=== PATIENT | female | born 1950 | race Caucasian/White ===

== ENCOUNTER 2017-07-27 20:27 | Inpatient (IN) ==
[2017-07-27] MEDS ORDERED: 0.9 % Sodium Chloride 1,000 ML IVC ONE (20:49)
[2017-07-27] MEDS ORDERED: Pantoprazole 40 MG VIAL IVP ONE (20:49)
--- NOTE | 2017-07-27 20:54 | Emergency Department Note ---
Disposition Clinical Impression: Anemia Qualifiers: Anemia type: unspecified type Qualified Code(s): D64.9 - Anemia, unspecified Disposition: Admitted As Inpatient Condition: Fair Time of Disposition: 23:03 General Adult HPI - General Chief complaint: ED Recheck/Abnormal Lab/Rx Stated complaint: Multiple Complaints Time Seen by Provider: 07/27/17 20:44 Source: patient Limitations: no limitations Nursing Notes Reviewed: Yes Vital Signs Reviewed: Yes - History of Present Illness HPI Narrative: Generalized weakness since for gi. Has been worked up by primary care physician. Was told she was anemic previously however did not need any blood transfusions. Was found to be 6.4 hemoglobin today. Now presents emergency department. No complaints of any pain. Does complain of weakness. Pain Scale: 0 - Related Data Home Medications Medication Instructions Recorded Confirmed ALPRAZolam [Xanax 0.5 MG Tablet] 0.5 mg PO BID PRN 07/27/17 07/27/17 Atenolol [Tenormin] 50 mg PO DAILY 07/27/17 07/27/17 Citalopram Hydrobromide [Celexa] 40 mg PO DAILY 07/27/17 07/27/17 Cyanocobalamin (B-12) [Vitamin B12] 1,000 mcg IM Q2W 07/27/17 07/27/17 Diclofenac Sodium [Voltaren] 1 appl TP QID PRN 07/27/17 07/27/17 HYDROcodone/Acet 5/325 mg [[place] 1 tab PO TID PRN 07/27/17 07/27/17 5-325 mg] Lisinopril/Hydrochlorothiazide 1 each PO BID 07/27/17 07/27/17 [Zestoretic 20-12.5 mg Tablet] Nitroglycerin [Nitrostat] 0.4 mg SL Q5M PRN 07/27/17 07/27/17 Ondansetron HCl [Zofran] 4 - 8 mg PO TID PRN 07/27/17 07/27/17 Potassium Chloride [K-Tab ER] 20 meq PO BID 07/27/17 07/27/17 Pravastatin Sodium [Pravachol] 20 mg PO HS 07/27/17 07/27/17 Trazodone HCl 100 mg PO HS 07/27/17 07/27/17 Previous Rx's Medication Instructions Recorded Ascorbate Calcium [Vitamin C] 500 mg PO DAILY #30 tablet 05/12/17 Allergies Allergy/AdvReac Type Severity Reaction Status Date / Time No Known Allergies Allergy Verified 05/09/17 09:28 All systems ED: reviewed and negative except as stated. Constitutional: Denies: fever, chills Cardiovascular: Denies: chest pain, syncope Respiratory: Denies: cough, dyspnea, wheezes Gastrointestinal: Reports: other ([place] stool). Denies: abdominal pain, nausea , vomiting, diarrhea, hematemesis, melena, hematochezia Genitourinary: Denies: urgency, dysuria, frequency, hematuria Musculoskeletal: Denies: back pain, neck pain Integumentary: Denies: rash, abrasion Neurological: Reports: weakness. Denies: headache Past Medical History - Past Medical History Attestation: Yes The following information was validated with the patient. Medical history: Reports: hyperlipidemia, hypertension, myocardial infarction, other Psychiatric history: Reports: no psych history WAGE HAND history: Reports: no WAGE HAND history - Social History Smoking Status: Current every day smoker Smokeless Tobacco Status: No Alcohol use: Reports: rarely Drug use: Reports: none Physical Exam - General Limitations: no limitations General appearance: alert, in distress (Appears weak) - Head Head exam: atraumatic, normocephalic, normal inspection - Eye Eye exam: Present: normal appearance, PERRL, EOMI. Absent: scleral icterus - ENT ENT exam: normal exam, normal oropharynx, mucous membranes moist - Neck Neck exam: Present: normal inspection, full ROM, trachea midline - Chest Chest inspection: Present: normal inspection, symmetric chest wall rise. Absent : tenderness - Respiratory Respiratory exam: Present: normal lung sounds bilaterally. Absent: respiratory distress - Cardiovascular Cardiovascular exam: Present: regular rate, normal rhythm, normal heart sounds - Abdominal Exam Abdominal exam: Present: soft, Non-Tender. Absent: distention, guarding, rebound, rigidity, organomegaly - Extremities Exam Extremities exam: Present: normal inspection, full ROM, normal capillary refill. Absent: tenderness, pedal edema - Back Exam Back exam: Present: normal inspection, full ROM. Absent: tenderness - Neurological Exam Neurological exam: Present: alert, oriented X3 - Psychiatric Psychiatric exam: Present: normal affect, normal mood - Skin Skin exam: Present: warm, dry, pallor Course Course Narrative: Being sent by her primary care physician for a low hemoglobin. She states this she has been feeling weak since before Thanksgi. She denies any pain shortness of breath or urinary symptoms. She states that she has had orange stools. Denies any melena or louise blood per rectum. Has had an VT over 10 years ago. She is pale in color. Has a hard time standing and transitioning to the bed. She is hypotensive. We will order 2 units of trauma blood at this time. Will begin a lab workup on patient inclusive of Hemoccult. She denies any fevers or coughs. She denies any gross pain. She has no signs of edema to her body. She denies any history of bleeding or being on any type of anticoagulants. - Reevaluation(s) Reevaluation #1: Hemoccult performed at bedside was negative however there was no stool in her vault. We will attempt this again if she has a bowel movement. Time: 21:15 Reevaluation #2: CT of patient's abdomen shows some free fluid in her pelvis. Also possible fibroid in her uterus. We will get a transvaginal ultrasound to further evaluate this. Is insistent that she has had no vaginal bleeding. She states that she was told to have fibroid previously after she had her child however this is been reevaluated and she was told that it "disappeared." We will admit patient to ICU. Her blood pressure has responded minimally to the 2 units of blood. Time: 22:35 - Consultations Consultation #1: Dr Magana accepted Pt in stable condition. Time: 23:03 Vital Signs Temperature 98.8 F 07/27/17 20:31 Pulse Rate 93 07/27/17 20:31 Respiratory Rate 18 07/27/17 20:31 Blood Pressure 69/47 07/27/17 20:31 O2 Sat by Pulse Oximetry 100 07/27/17 20:31 Temperature 98.3 F 07/28/17 05:03 Pulse Rate 80 07/28/17 05:00 Respiratory Rate 20 07/28/17 05:00 Blood Pressure 99/54 07/28/17 05:00 O2 Sat by Pulse Oximetry 94 07/28/17 05:00 Oxygen Delivery Oxygen Delivery Room Air Medical Decision Making - Lab Data Result diagrams: 07/28/17 03:08 07/28/17 03:08 Lab Results 07/27/17 07/27/17 07/27/17 Range/Units 20:49 20:49 20:49 WBC 3.1 L (4.3-11.1) K/mcL RBC 2.21 L (3.82-4.97) M/mcL Hgb 5.9 L* (11.5-15.4) g/dL Hct 19.2 L (35.3-44.9) % MCV 86.9 (83.0-100.0) fL MCH 26.7 L (28.0-33.3) pg MCHC 30.7 L (31.6-35.5) g/dL RDW 19.0 H (11.5-14.5) % Plt Count 224 (140-400) K/mcL MPV 11.1 (9.4-12.4) fL Seg Neutrophils % 38.0 % Band Neutrophils % 16.0 H (0-4) % Lymphocytes % 18.0 % Monocytes % 24.0 % Eosinophils % 2.0 % Myelocytes % 2.0 H (0) % Neutrophils # 1.7 (1.6-8.9) K/mcL Lymphocytes # 0.6 (0.6-4.6) K/mcL Monocytes # 0.7 (0.0-1.3) K/mcL Eosinophils # 0.1 (0.0-0.6) K/mcL Platelet Estimate Normal (Normal) Hypochromasia Present A (Not Present) Anisocytosis 1+ A (Not Present) Microcytosis Present A (Not Present) Ovalocytes 1+ A (Not Present) PT 16.8 H (9.4-12.1) Seconds INR 1.5 APTT 34.7 (26.0-36.0) Seconds Sodium 132 L (136-145) mEq/L Potassium 4.0 (3.5-5.1) mEq/L Chloride 102 (98-107) mEq/L Carbon Dioxide 19 L (23-29) mEq/L BUN 64 H (8-23) mg/dL Creatinine 1.38 H (0.60-1.20) mg/dL Est GFR ( Amer) 47 L (> 60) Est GFR (Non-Af Amer) 38 L (> 60) BUN/Creatinine Ratio 46 H (6-26) Glucose 115 H (70-105) mg/dL Calculated Osmolality 293 (280-300) Calcium 8.9 (8.6-10.3) mg/dL Total Bilirubin 0.7 (0.3-1.0) mg/dL AST 9 L (13-39) Units/L ALT 8 (7-52) Units/L Alkaline Phosphatase 167 H (34-104) Units/L Serum Total Protein 6.7 (6.4-8.9) g/dL Albumin 3.0 L (3.5-5.7) g/dL Globulin 3.7 H (2.4-3.5) g/dL Albumin/Globulin Ratio 0.8 L (1.1-2.2) Blood Type Antibody Screen Crossmatch 07/27/17 07/28/17 Range/Units 20:53 00:24 WBC (4.3-11.1) K/mcL RBC (3.82-4.97) M/mcL Hgb 7.8 L D (11.5-15.4) g/dL Hct 25.4 L (35.3-44.9) % MCV (83.0-100.0) fL MCH (28.0-33.3) pg MCHC (31.6-35.5) g/dL RDW (11.5-14.5) % Plt Count (140-400) K/mcL MPV (9.4-12.4) fL Seg Neutrophils % % Band Neutrophils % (0-4) % Lymphocytes % % Monocytes % % Eosinophils % % Myelocytes % (0) % Neutrophils # (1.6-8.9) K/mcL Lymphocytes # (0.6-4.6) K/mcL Monocytes # (0.0-1.3) K/mcL Eosinophils # (0.0-0.6) K/mcL Platelet Estimate (Normal) Hypochromasia (Not Present) Anisocytosis (Not Present) Microcytosis (Not Present) Ovalocytes (Not Present) PT (9.4-12.1) Seconds INR APTT (26.0-36.0) Seconds Sodium (136-145) mEq/L Potassium (3.5-5.1) mEq/L Chloride (98-107) mEq/L Carbon Dioxide (23-29) mEq/L BUN (8-23) mg/dL Creatinine (0.60-1.20) mg/dL Est GFR ( Amer) (> 60) Est GFR (Non-Af Amer) (> 60) BUN/Creatinine Ratio (6-26) Glucose (70-105) mg/dL Calculated Osmolality (280-300) Calcium (8.6-10.3) mg/dL Total Bilirubin (0.3-1.0) mg/dL AST (13-39) Units/L ALT (7-52) Units/L Alkaline Phosphatase (34-104) Units/L Serum Total Protein (6.4-8.9) g/dL Albumin (3.5-5.7) g/dL Globulin (2.4-3.5) g/dL Albumin/Globulin Ratio (1.1-2.2) Blood Type B POSITIVE Antibody Screen NEGATIVE Crossmatch See Detail Attestation Statement - Attestation Attestation: I examined this patient and my medical decision-making was reviewed with the Resident Physician. I agree with the documented findings, disposition and treatment plan as described except to the extent set forth below. Findings consistent with hypotension in the setting of possible GI hemorrhage. There is elevated BUN but rectal sample shows no evidence of positive Hemoccult. The patient will be started on Protonix infusion as well as bolus. She was emergently resuscitated with trauma blood given hypotension, weakness, tachycardia. Blood pressures were 60 systolic on arrival. I do suspect acute GI loss and possible hemorrhage. CT scan shows no acute abdominal findings. Patient was showing clinical improvement with packed red blood cells transfusion. Patient was admitted to intensive care unit. I spent greater than 35 minutes of critical care time assessing his acutely ill patient suffering from acute GI hemorrhage with subsequent hypotension requiring transfusion. This is excluding billable procedures.
[2017-07-27] MEDS: Pantoprazole 40 MG in 0.9 % Sodium Chloride Mini Bag 100 ML IVC SCH (21:01)
[2017-07-27 21:09] LABS: Platelet Count 224 K/mcL (140-400)
[2017-07-27 21:10] LABS: Hematocrit 19.2 % (35.3-44.9); Lymphocytes # 0.6 K/mcL (0.6-4.6); Mean Corpuscular HGB Conc 30.7 g/dL (31.6-35.5); Mean Corpuscular Hemoglobin 26.7 pg (28.0-33.3); Mean Corpuscular Volume 86.9 fL (83.0-100.0); Mean Platelet Volume 11.1 fL (9.4-12.4); Red Blood Count 2.21 M/mcL (3.82-4.97)
[2017-07-27 21:12] LABS: Hemoglobin 5.9 g/dL (11.5-15.4)
[2017-07-27 21:27] LABS: Eosinophils # 0.1 K/mcL (0.0-0.6); Monocytes # 0.7 K/mcL (0.0-1.3); Neutrophils # 1.7 K/mcL (1.6-8.9); Platelet Estimate Normal (Normal)
[2017-07-27 21:28] LABS: Anisocytosis 1+ (Not Present); Hypochromasia Present (Not Present); Microcytosis Present (Not Present); Ovalocytes 1+ (Not Present)
[2017-07-27 21:35] LABS: Albumin/Globulin Ratio 0.8 (1.1-2.2); Bilirubin,Total 0.7 mg/dL (0.3-1.0); Calcium 8.9 mg/dL (8.6-10.3); Globulin 3.7 g/dL (2.4-3.5); Total Protein 6.7 g/dL (6.4-8.9)
[2017-07-27 21:43] LABS: INR 1.5; Prothrombin Time 16.8 Seconds (9.4-12.1)
[2017-07-27 21:46] LABS: Activated Partial Thrombo Time 34.7 Seconds (26.0-36.0)
--- NOTE | 2017-07-28 00:04 | Internal Med History&Physical ---
Date of Encounter: 07/28/17 Time of Encounter: 00:04 Assessment and Plan (1) Anemia Current visit: Yes Status: Acute patient initially anemic 6.4 which prompted her emergency department visit, found to be 5.9 on arrival she was not tachycardia likely attenuated from home medication Atenolol, continue cardiorespiratory monitoring she reports fatigue and weakness, denies any chest pain or shortness of breath denies any active signs of bleeding initial stool hemoccult negative patient has prior history of iron deficiency and vitamin B12 deficiency anemia workup ordered by primary care physician - Vitamin B12 >1500 - Iron 27, saturation 14, transferritin 142 patient does not take any anticoagulants or any NSAIDs suspect possible GI bleed given elevated BUN 58 will consult G.I. for possible endoscopy patient NPO IV Protonix gtt s/p 2 units pRBC H/H q4h - recheck 7.8 Qualifiers: Anemia type: unspecified type Qualified Code(s): D64.9 - Anemia, unspecified (2) Hypotension Current visit: Yes Status: Acute suspect likely hypovolemia from blood loss continue to monitor mild improvement with blood transfusion IVF bolus given in ED placed on MIVF patient requires intensive care unit admission for close monitoring as she can deteriorate will place central line for vasopressors if indicated for refractory hypotension Qualifiers: Hypotension type: unspecified hypotension type Qualified Code(s): I95.9 - Hypotension, unspecified (3) Acute kidney injury superimposed on chronic kidney disease Current visit: Yes Status: Acute continue to monitor avoid nephrotoxic drugs monitor urine output (4) DVT prophylaxis Current visit: Yes Status: Acute concern for possible GI bleed, no heparin placed on SCDs Patient was discussed with my attending physician Dr. Rangel who agrees with management and final disposition. They independently evaluated the patient. Please refer to their attestation to this encounter for additional information. This note was generated by [employer] voice recognition software and as a result grammatical or spelling errors may occur using this program. Internal Medicine - H&P: HPI Chief complaint: weakness, severe anemia Admitted From: Home Plans for Post Hospital Care: Home History of present illness: Ms. 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 States she has been weak and fatigued over the past several months, since Thanksgiving. She saw her family physician Dr. Hamilton this morning and was found to be anemic 6.4. She has a prior known history of anemia requiring hospitalization 2 months ago. She was found to have low iron and low vitamin B12. Her vitamin B12 was repleted with IM medication. No history of blood transfusion. On arrival to the emergency department patient was hypotensive systolic 60s. Her hemoglobin was 5.9. She has a elevated BUN 64. Creatinine 1.38. She received 2 units of packed red blood cells with minimal correction to her blood pressure. A stool hemoccult was performed however no stool was reported in the vault and therefore was negative. Patient placed on IV proton extremity. Patient denies any use of anticoagulants. She does occasionally take aspirin but admits this is not on a daily basis. She denies NSAID use. Denies any hematemesis, hemoptysis, bloody stool or blacked tarry stool. She does report some loose stool earlier today that was cultured by her primary care physician, results negative. She denies any abdominal pain, nausea or vomiting. Denies any vaginal bleeding. Denies any hematuria. She denies any passing out, chest pain, shortness of breath. Past Med Surg Social Fam HX - Past Medical History Attestation: Yes The following information was validated with the patient. Source: patient Medical history: hyperlipidemia, hypertension, myocardial infarction, other Psychiatric history: no psych history - Past Surgical History Surgical History: no surgical history - Social History Smoking Status: Current every day smoker Smokeless Tobacco Status: No Alcohol use: rarely Drug use: none Internal Medicine - H&P: Meds Ascorbate Calcium [Vitamin C] 500 mg PO DAILY #30 tablet 05/12/17 [Rx] ALPRAZolam [Xanax 0.5 MG Tablet] 0.5 mg PO BID PRN 07/27/17 [History] Atenolol [Tenormin] 50 mg PO DAILY 07/27/17 [History] Citalopram Hydrobromide [Celexa] 40 mg PO DAILY 07/27/17 [History] Cyanocobalamin (B-12) [Vitamin B12] 1,000 mcg IM Q2W 07/27/17 [History] Diclofenac Sodium [Voltaren] 1 appl TP QID PRN 07/27/17 [History] HYDROcodone/Acet 5/325 mg [[place] 5-325 mg] 1 tab PO TID PRN 07/27/17 [History] Lisinopril/Hydrochlorothiazide [Zestoretic 20-12.5 mg Tablet] 1 each PO BID [History] Nitroglycerin [Nitrostat] 0.4 mg SL Q5M PRN 07/27/17 [History] Ondansetron HCl [Zofran] 4 - 8 mg PO TID PRN 07/27/17 [History] Potassium Chloride [K-Tab ER] 20 meq PO BID 07/27/17 [History] Pravastatin Sodium [Pravachol] 20 mg PO HS 07/27/17 [History] Trazodone HCl 100 mg PO HS 07/27/17 [History] 3 Allergy/AdvReac Type Severity Reaction Status Date / Time No Known Allergies Allergy Verified 05/09/17 09:28 All Systems PM: A 10-system review of systems was performed and is negative for pertinent findings except as documented above in the HPI. - Constitutional Constitutional: fatigue, malaise, weakness, weight loss, no chills, no fever(s) , no night sweats - Cardiovascular Cardiovascular ROS IM: no chest pain, no dyspnea, no dyspnea on exertion - Respiratory Respiratory: no cough, no dyspnea - Gastrointestinal Gastrointestinal: as per HPI, change in bowel habits, change in stool character , loose stools, no abdominal pain, no coffee ground emesis, no constipation, no hematemesis, no hematochezia, no melena, no nausea, no vomiting - Genitourinary Genitourinary: no abnormal vaginal bleeding - Integumentary Integumentary IM: no rash - Neurological Neurological ROS: no dizziness, no focal weakness - Hematologic/Lymphatic Hematologic/Lymphatic: no easy bleeding, no easy bruising - Constitutional Vitals: Temp Pulse Resp BP Pulse Ox 98.3 F 76 18 92/52 100 07/27/17 23:28 07/27/17 23:28 07/27/17 23:28 07/27/17 23:28 07/27/17 23:28 General appearance: Present: A&O X 3, no acute distress, answers questions appropriately - Head Head exam: Present: atraumatic, normal inspection, normocephalic - Eye Eye exam: Present: EOMI, normal appearance, PERRL. Absent: scleral icterus Additional comments: conjunctiva pale - ENT ENT exam: Present: mucous membranes dry, normal oropharynx - Neck Neck exam general surgery: Present: full ROM, normal inspection, supple, trachea midline - Respiratory Respiratory exam: Present: CTAB. Absent: accessory muscle use, respiratory distress - Cardiovascular Cardiovascular exam: Present: RRR, +S1, +S2. Absent: diastolic murmur, JVD, systolic murmur - GI/Abdominal GI/Abdominal exam: Present: normal bowel sounds, soft. Absent: distended, firm , guarding, mass, rebound, rigid, tenderness, no peritoneal signs - Rectal Rectal exam: Present: heme (-) stool (reported by ED physician). Absent: black stool, bloody stool - Extremities Exam Extremities exam: Present: full ROM, normal inspection, radial pulses palpable and symmetrical. Absent: calf tenderness, pedal edema - Neurological Exam Neurological exam: Present: alert, oriented X3, no focal deficits, strengths equal and symetr throughout - Psychiatric Psychiatric exam: Present: normal affect, normal mood - Skin Skin exam: Present: pallor. Absent: abrasion, cyanosis, diaphoretic, erythema, petechiae, rash Internal Med - H&P Results - Labs CBC & Chem 7: 07/28/17 00:24 07/27/17 20:49 Labs: Short CBC 07/27/17 Range/Units 20:49 WBC 3.1 L (4.3-11.1) K/mcL Hgb 5.9 L* (11.5-15.4) g/dL Hct 19.2 L (35.3-44.9) % Plt Count 224 (140-400) K/mcL Neutrophils # 1.7 (1.6-8.9) K/mcL BMP 07/27/17 20:49 Sodium 132 L Potassium 4.0 Chloride 102 Carbon Dioxide 19 L BUN 64 H Creatinine 1.38 H Glucose 115 H Calcium 8.9 Liver Function 07/27/17 Range/Units 20:49 Total Bilirubin 0.7 (0.3-1.0) mg/dL AST 9 L (13-39) Units/L ALT 8 (7-52) Units/L Alkaline Phosphatase 167 H (34-104) Units/L Albumin 3.0 L (3.5-5.7) g/dL - Impressions ITS Impressions Chest X-Ray 07/27/17 20:49 IMPRESSION: No active cardiopulmonary disease D/ / Antoine Corral MD / Antoine Corral MD Interpreting Provider: Antoine Corral MD Abdomen/Pelvis CT 07/27/17 21:12 IMPRESSION: Decrease in periportal adenopathy since the previous exam with decrease mass-effect on the common bowel duct and decrease biliary dilatation. Increase in retroperitoneal adenopathy. Uterus is heterogeneous. 4.8 x 5.5 cm rounded lesion in the uterus which likely represents a fibroid. Additional 1.7 x 1.9 cm cystic lesion which appears to be in the inferior right uterine body near the cervix. It is uncertain if this represents a nabothian cysts or potentially cystic degeneration of a fibroid. Recommend further evaluation with ultrasound. Small amount of ascites in the pelvis. Splenomegaly. Cholelithiasis. No evidence of acute cholecystitis. Multiple tiny nodules in the lung bases which are likely infectious or inflammatory in etiology. D/ / Sara Goldsmith MD / Sara Goldsmith MD Interpreting Provider: Sara Goldsmith MD Abdomen/Pelvis/Transvag US 07/27/17 22:32 IMPRESSION: Uterus is heterogeneous and contains at least 2 fibroids. 2.2 x 1.7 x 2.0 cm hyperechoic rounded lesion in the inferior right uterine body corresponds to CT finding. This is not well evaluated due to position and general heterogeneity of the uterus. Endometrium is also poorly evaluated in appears mildly thickened in some regions. Recommend further evaluation with MRI of the pelvis with contrast or direct visualization to exclude underlying lesion. D/ / Sara Goldsmith MD / Sara Goldsmith MD Interpreting Provider: Sara Goldsmith MD
[2017-07-28] MEDS ORDERED: Potassium Phosphate 44 MEQ in 0.9 % Sodium Chloride 250 ML IVPB PRN (00:10)
[2017-07-28] MEDS ORDERED: Naloxone 0.4 MG/ML INJ IVP PRN (00:10)
[2017-07-28] MEDS ORDERED: D5% in Water 1,000 ML IVC PRN (00:10)
[2017-07-28] MEDS ORDERED: Dextrose Gel 15 GM/37.5 ML TUBE PO PRN ×2 (00:10)
[2017-07-28] MEDS ORDERED: *HR* Dextrose 50 % in Water (Syg) 50 ML SYRINGE IVP PRN (00:10)
[2017-07-28 00:40] LABS: Hematocrit 25.4 % (35.3-44.9)
[2017-07-28 00:44] LABS: Hemoglobin 7.8 g/dL (11.5-15.4)
[2017-07-28] MEDS: Pantoprazole 40 MG in 0.9 % Sodium Chloride Mini Bag 100 ML IVC SCH ×4 (02:24→18:08)
[2017-07-28] MEDS: 0.9 % Sodium Chloride 1,000 ML IVC SCH ×2 (02:25→10:11)
[2017-07-28 03:22] LABS: Bilirubin,Urine Negative (Negative); Blood,Urine Trace (Negative); Clarity,Urine Clear (Clear); Color,Urine Yellow (Yellow); Glucose,Urine (UA) Normal (Normal); Ketones,Urine Negative (Negative); Leukocyte Esterase,Urine Negative (Negative); Nitrite,Urine Negative (Negative); Protein,Urine Negative (Neg-Trace); Specific Gravity,Urine > 1.030 (1.010-1.025); Urobilinogen,Urine Normal (Normal)
[2017-07-28 03:24] LABS: Hematocrit 22.6 % (35.3-44.9); Immature Granulocytes % 8.4 % (0-4); Lymphocytes # 0.5 K/mcL (0.6-4.6); Lymphocytes % 19.4 %; Mean Corpuscular Hemoglobin 26.3 pg (28.0-33.3); Mean Platelet Volume 10.6 fL (9.4-12.4); Monocytes # 0.9 K/mcL (0.0-1.3); Monocytes % 32.7 %; Nucleated Red Blood Cells 1.9 /100 WBC (0); Platelet Count 151 K/mcL (140-400); Red Blood Count 2.66 M/mcL (3.82-4.97); Red Cell Distribution Width 17.5 % (11.5-14.5); Segmented Neutrophils % 39.5 %
[2017-07-28 03:25] LABS: Bacteria,Urine None Seen per hpf (None-Few); Hyaline Casts,Urine None Seen per lpf (None-Few); Squamous Epithelial Cell,Urine Many per lpf (None-Few); WBC,Urine 0-3 per hpf (0-3)
[2017-07-28 03:45] LABS: Calcium 7.8 mg/dL (8.6-10.3); Potassium 3.7 mEq/L (3.5-5.1)
[2017-07-28 03:59] LABS: Platelet Estimate Normal (Normal)
[2017-07-28 04:00] LABS: Anisocytosis 1+ (Not Present)
[2017-07-28] MEDS ORDERED: *HR* LORazepam 2 MG/ML VIAL IVP ONE ×2 (04:08→20:06)
[2017-07-28 07:27] LABS: Hematocrit 23.7 % (35.3-44.9); Hemoglobin 7.5 g/dL (11.5-15.4)
--- NOTE | 2017-07-28 08:35 | Pulmonology Consult Note ---
<Harpreet Garcia W - Last Filed: 07/28/17 10:26> Date of Encounter: 07/28/17 Medications and Allergies Ascorbate Calcium [Vitamin C] 500 mg PO DAILY #30 tablet 05/12/17 [Rx] ALPRAZolam [Xanax 0.5 MG Tablet] 0.5 mg PO BID PRN 07/27/17 [History] Atenolol [Tenormin] 50 mg PO DAILY 07/27/17 [History] Citalopram Hydrobromide [Celexa] 40 mg PO DAILY 07/27/17 [History] Cyanocobalamin (B-12) [Vitamin B12] 1,000 mcg IM Q2W 07/27/17 [History] Diclofenac Sodium [Voltaren] 1 appl TP QID PRN 07/27/17 [History] HYDROcodone/Acet 5/325 mg [[place] 5-325 mg] 1 tab PO TID PRN 07/27/17 [History] Lisinopril/Hydrochlorothiazide [Zestoretic 20-12.5 mg Tablet] 1 each PO BID [History] Nitroglycerin [Nitrostat] 0.4 mg SL Q5M PRN 07/27/17 [History] Ondansetron HCl [Zofran] 4 - 8 mg PO TID PRN 07/27/17 [History] Potassium Chloride [K-Tab ER] 20 meq PO BID 07/27/17 [History] Pravastatin Sodium [Pravachol] 20 mg PO HS 07/27/17 [History] Trazodone HCl 100 mg PO HS 07/27/17 [History] 3 Allergy/AdvReac Type Severity Reaction Status Date / Time No Known Allergies Allergy Verified 05/09/17 09:28 All Systems: The remainder of the systems were reviewed and are negative Physical Examination Vital Signs: Vital Signs, Last 4 Hours Temp Pulse Resp BP Pulse Ox 07/28/17 10:00 73 16 86/37 99 07/28/17 09:00 69 16 91/53 100 07/28/17 08:00 74 18 95/51 100 07/28/17 07:48 77 07/28/17 07:00 98.8 F 73 18 88/49 100 Results - Laboratory Findings CBC and BMP: 07/28/17 07:00 07/28/17 03:08 PT/INR, D-dimer PT 16.8 Seconds (9.4-12.1) H 07/27/17 20:49 Abnormal lab findings: Abnormal lab results WBC 2.6 K/mcL (4.3-11.1) L 07/28/17 03:08 RBC 2.66 M/mcL (3.82-4.97) L 07/28/17 03:08 Hgb 7.5 g/dL (11.5-15.4) L 07/28/17 07:00 Hct 23.7 % (35.3-44.9) L 07/28/17 07:00 MCH 26.3 pg (28.0-33.3) L 07/28/17 03:08 MCHC 31.0 g/dL (31.6-35.5) L 07/28/17 03:08 RDW 17.5 % (11.5-14.5) H 07/28/17 03:08 Immature Gran % 8.4 % (0-4) H 07/28/17 03:08 Band Neutrophils % 16.0 % (0-4) H 07/27/17 20:49 Myelocytes % 2.0 % (0) H 07/27/17 20:49 Neutrophils # 1.0 K/mcL (1.6-8.9) L 07/28/17 03:08 Lymphocytes # 0.5 K/mcL (0.6-4.6) L 07/28/17 03:08 Nucleated RBCs/100 WBC 1.9 /100 WBC (0) H 07/28/17 03:08 Hypochromasia Present (Not Present) A 07/27/17 20:49 Anisocytosis 1+ (Not Present) A 07/28/17 03:08 Microcytosis Present (Not Present) A 07/27/17 20:49 Ovalocytes 1+ (Not Present) A 07/27/17 20:49 PT 16.8 Seconds (9.4-12.1) H 07/27/17 20:49 Sodium 134 mEq/L (136-145) L 07/28/17 03:08 Carbon Dioxide 20 mEq/L (23-29) L 07/28/17 03:08 BUN 54 mg/dL (8-23) H 07/28/17 03:08 Est GFR ( Amer) 56 (> 60) L 07/28/17 03:08 Est GFR (Non-Af Amer) 46 (> 60) L 07/28/17 03:08 BUN/Creatinine Ratio 46 (6-26) H 07/28/17 03:08 Calcium 7.8 mg/dL (8.6-10.3) L 07/28/17 03:08 AST 9 Units/L (13-39) L 07/27/17 20:49 Alkaline Phosphatase 167 Units/L (34-104) H 07/27/17 20:49 Albumin 3.0 g/dL (3.5-5.7) L 07/27/17 20:49 Globulin 3.7 g/dL (2.4-3.5) H 07/27/17 20:49 Albumin/Globulin Ratio 0.8 (1.1-2.2) L 07/27/17 20:49 TSH 5.926 mcIU/mL (0.340-5.600) H 07/28/17 08:59 Ur Specific [place] > 1.030 (1.010-1.025) H 07/28/17 02:19 Urine Blood Trace (Negative) H 07/28/17 02:19 Urine Microscopic RBC 5-15 per hpf (0-3) H 07/28/17 02:19 Ur Squamous Epith Cells Many per lpf (None-Few) H 07/28/17 02:19 - Clinical Findings Intake & Output: Intake & Output 07/27/17 07/28/17 07/28/17 23:59 07:59 15:59 Intake Total 1800 / 1800 Output Total 800 / 800 Balance 1000 / 1000 Weight 71.9 kg 72.4 kg Consult Discharge Plan - Plan Referrals: Amaris Hamilton MD [Primary Care Provider] - - Attending Attestation I examined this patient and my medical decision-making was reviewed with the Resident Physician. I agree with the documented findings, disposition and treatment plan as described except to the extent set forth below. We independently had [id number] contact with the patient Patient seen and examined at bedside Labs, radiology, chart personally reviewed. Management was reviewed during multidisciplinary critical care rounds. ALUM PLANT SUPERVISOR: No focal deficit following all commands Pulm: Excellent oxygenation on room air Cards: Mild hypotension secondary to volume depletion which is a normalized to her baseline without evidence of end organ hypoperfusion FEN-GI: Advance diet as tolerated Renal: Mild AK I which has resolved with volume; continue to monitor urine output ID: No clear evidence of infectious process continue to monitor Heme/Onc: Acute on chronic anemia suspected chronic anemia possibly MDS she is refusing evaluation by gastroenterology/endoscopy at this time status post transfusion 2 units with appropriate increment we will discuss possibility of hematology consult with her and she is agreeable Endo: Glucose Monitored; rule out adrenal insufficiency Integ/MSK: Skin Care per routine ICU Nursing Protocol to prevent ulcers. : Patient has a large fibroid tumor but is declining evaluation at this time Dispo: Stable for transfer to [facility] telemetry CODE: Full <Wayne Naranjo - Last Filed: 07/28/17 11:56> Date of Encounter: 07/28/17 Time of Encounter: 07:45 Assessment and Plan (1) Anemia Current Visit: Yes Status: Acute Transfused 2U pRBCs -- Hgb stable over serial rechecks -- cont on telemetry and cont Hgb, once more this afternoon and qAM -- pt declines any gastrointestinal pursuit of acute anemia including all endoscopic exams; acute GI bleed unlikely given history as per HPI -- will continue to monitor Hgb Labs: -- MCV normal, RDW elevated, RBCs anisocytotic with polychromasia -- Platelet count is borderline at 151k -- WBC ct 2.6 -- Fe is 27 (L), %-sat 14 (L), Transferrin 142 (L), Ferritin 1108 (H) -- B12 >1500 (H), Folate 11.2 (N) Suspect anemia of chronic disease vs. dysplastic process -- Dr. Hunter consulted with patient's agreement; Dr. Hunter's input is appreciated -- Await further recommendations Qualifiers: Anemia type: unspecified type Qualified Code(s): D64.9 - Anemia, unspecified (2) Hypotension Current Visit: Yes Status: Acute Likely hypovolemic due to blood volume loss -- adequate but borderline hypotensive at this time -- cont to monitor on tele Qualifiers: Hypotension type: unspecified hypotension type Qualified Code(s): I95.9 - Hypotension, unspecified (3) Pancytopenia Current Visit: No Status: Acute as above (4) Weight loss Current Visit: No Status: Acute Heme/Onc consult per plans under [ANEMIA] -- will need HAND PLEATER consult at some point; patient declines to do so on an inpatient basis at this point but is happy to follow up on discharge (5) Acute renal injury due to hypovolemia Current Visit: Yes Status: Resolved Resolving; likely due to hypovolemia (6) DVT prophylaxis Current Visit: Yes Status: Acute SCDs No Pharmacologic prophylaxis given possibility of source of acute blood loss History of Present Illness Consult date: 07/28/17 Chief complaint: Critical Anemia with hypotension History of present illness: Sent from PCP to ED, then admitted, and ultimately transferred to ICU for critical anemia. Blood pressures continue to be borderline, but stable. Other vitals stable. No new findings or concerns overnight. 2U pRBCs given in ED, and subsequent Hgb rechecks have been stable. Discussed with patient further assessment for acute blood loss, and she declines any GI consultation as she is not willing to undergo any endoscopic procedures. Patient does have a variety of abnormalities on overall anemia lab work up that may be suggestive of processes other than chronic/acute blood loss, e.g., aplastic/dysplastic pathologies or anemia of chronic disease. Pt is willing to discuss with board setter, so Dr. Hunter was consulted. Discussed with patient that Fish Hatchery Worker consult may be necessary as well considering the abnormal imaging findings. Patient expresses full understanding of clinical picture/question, and her options. Coags demonstrate normal inr. Pt does also have mild MAURO (no chronic kidney disease per lab history in [facility]). HPI: Pt states has been weak and fatigued over past 9 months describing occasional sporadic vomiting/diarrhea and 50 lb weight loss. Denies fevers, chills, sweats, or rash. Patient does have known chronic anemia, source unclear , and is receiving iron/B12 supplementation on OP basis. Pt admitted with hgb in 5-6g range. ED workup and history failed to elucidate clear source of suspected acute loss; patient denies hematemesis, coffee ground emesis, epistaxis, hematuria, uterine bleeding/spotting, melena, hematochezia, new rashes, or other symptoms of blood loss. CT-abdomen revealed uterine fibroids and was followed by TV-U/S demonstrating similar findings as well as abnormal endometrial stripe. Hemoccult card was negative in ED per note. Due to pressures, pt was transfused 2U and started on Protonix infusion due to concern of acute GI hemorrhage. Past Med Surg Social Fam HX - Past Medical History Attestation: Yes The following information was validated with the patient. Source: patient Medical history: hyperlipidemia, hypertension, myocardial infarction, other - Past Surgical History Surgical History: no surgical history - Social History Smoking Status: Current every day smoker Smokeless Tobacco Status: No Alcohol use: rarely Drug use: none All Systems: The remainder of the systems were reviewed and are negative Physical Examination Vital Signs: Vital Signs, Last 4 Hours Temp Pulse Resp BP Pulse Ox 07/28/17 07:48 77 07/28/17 07:00 98.8 F 73 18 88/49 100 07/28/17 06:00 79 96 84/56 07/28/17 05:03 98.3 F 07/28/17 05:00 80 20 99/54 94 General appearance: no acute distress Eyes: nonicteric, other (conjunctival pallor) ENT: oropharynx moist Neck: supple, no lymphadenopathy Effort: normal Inspection: normal Auscultation: bilateral: clear Cardiovascular: regular rate and rhythm Gastrointestinal: normoactive bowel sounds, soft, non-tender, non-distended Integumentary: normal Extremities: no cyanosis, no edema, no clubbing, pulses normal, no ischemia or petechiae Musculoskeletal: no deformities normal mental status, non-focal exam mood appropriate, affect normal Results - Laboratory Findings CBC and BMP: 07/28/17 07:00 07/28/17 03:08 PT/INR, D-dimer PT 16.8 Seconds (9.4-12.1) H 07/27/17 20:49 Abnormal lab findings: Abnormal lab results WBC 2.6 K/mcL (4.3-11.1) L 07/28/17 03:08 RBC 2.66 M/mcL (3.82-4.97) L 07/28/17 03:08 Hgb 7.5 g/dL (11.5-15.4) L 07/28/17 07:00 Hct 23.7 % (35.3-44.9) L 07/28/17 07:00 MCH 26.3 pg (28.0-33.3) L 07/28/17 03:08 MCHC 31.0 g/dL (31.6-35.5) L 07/28/17 03:08 RDW 17.5 % (11.5-14.5) H 07/28/17 03:08 Immature Gran % 8.4 % (0-4) H 07/28/17 03:08 Band Neutrophils % 16.0 % (0-4) H 07/27/17 20:49 Myelocytes % 2.0 % (0) H 07/27/17 20:49 Neutrophils # 1.0 K/mcL (1.6-8.9) L 07/28/17 03:08 Lymphocytes # 0.5 K/mcL (0.6-4.6) L 07/28/17 03:08 Nucleated RBCs/100 WBC 1.9 /100 WBC (0) H 07/28/17 03:08 Hypochromasia Present (Not Present) A 07/27/17 20:49 Anisocytosis 1+ (Not Present) A 07/28/17 03:08 Microcytosis Present (Not Present) A 07/27/17 20:49 Ovalocytes 1+ (Not Present) A 07/27/17 20:49 PT 16.8 Seconds (9.4-12.1) H 07/27/17 20:49 Sodium 134 mEq/L (136-145) L 07/28/17 03:08 Carbon Dioxide 20 mEq/L (23-29) L 07/28/17 03:08 BUN 54 mg/dL (8-23) H 07/28/17 03:08 Est GFR ( Amer) 56 (> 60) L 07/28/17 03:08 Est GFR (Non-Af Amer) 46 (> 60) L 07/28/17 03:08 BUN/Creatinine Ratio 46 (6-26) H 07/28/17 03:08 Calcium 7.8 mg/dL (8.6-10.3) L 07/28/17 03:08 AST 9 Units/L (13-39) L 07/27/17 20:49 Alkaline Phosphatase 167 Units/L (34-104) H 07/27/17 20:49 Albumin 3.0 g/dL (3.5-5.7) L 07/27/17 20:49 Globulin 3.7 g/dL (2.4-3.5) H 07/27/17 20:49 Albumin/Globulin Ratio 0.8 (1.1-2.2) L 07/27/17 20:49 Ur Specific [place] > 1.030 (1.010-1.025) H 07/28/17 02:19 Urine Blood Trace (Negative) H 07/28/17 02:19 Urine Microscopic RBC 5-15 per hpf (0-3) H 07/28/17 02:19 Ur Squamous Epith Cells Many per lpf (None-Few) H 07/28/17 02:19 - Clinical Findings Intake & Output: Intake & Output 07/27/17 07/28/17 07/28/17 23:59 07:59 15:59 Intake Total 1700 / 1700 Output Total 800 / 800 Balance 900 / 900 Weight 71.9 kg
[2017-07-28 17:53] LABS: Hematocrit 25.4 % (35.3-44.9); Hemoglobin 7.8 g/dL (11.5-15.4); Immature Granulocytes % 9.8 % (0-4); Lymphocytes # 0.6 K/mcL (0.6-4.6); Lymphocytes % 22.4 %; Mean Corpuscular HGB Conc 30.7 g/dL (31.6-35.5); Mean Corpuscular Hemoglobin 26.4 pg (28.0-33.3); Mean Corpuscular Volume 86.1 fL (83.0-100.0); Monocytes # 0.6 K/mcL (0.0-1.3); Monocytes % 25.3 %; Platelet Count 187 K/mcL (140-400); Red Blood Count 2.95 M/mcL (3.82-4.97); Red Cell Distribution Width 18.2 % (11.5-14.5); Segmented Neutrophils % 42.5 %
[2017-07-28 17:58] LABS: Neutrophils # 1.1 K/mcL (1.6-8.9)
[2017-07-28 18:35] LABS: Large Platelets Present (Not Present)
--- NOTE | 2017-07-28 21:04 | Oncology Inp Consult Note ---
Date of Encounter: 07/28/17 Time of Encounter: 18:00 Assessment and Plan (1) Pancytopenia Status: Acute Assessment and plan: With borderline leukopenia, worsening anemia, possible bone marrow pathology, lymphoproliferative disorder versus mild dysplastic syndrome he to be ruled out with the splenomegaly borderline lymphadenopathy. Patient was discussed GI workup due to acute worsening of anemia as well. She declines any further workup at this time. Peripheral smear, labs to be sent for flow cytometry. Bone marrow aspiration and biopsy was discussed with her but she is not agreeable at this point. Continued monitoring, transfusion support as needed. PEP normal. She is willing to follow up in Heme clinic as outpatient for labs. - Data of Consult Requesting Physician: Ephraim Ochoa MD Primary Care Provider: Amaris Hamilton - Consult Narrative Reason for consult: ANEMIA History of present illness: Ms. Burnett is a 67 year old female with medical history significant for cardiomyopathy, history of PR, patient was noted to have a hemoglobin of 6.4 prior to hospitalization patient was also noted to have hypotension. She is known to have mild chronic renal insufficiency with acute worsening patient had received 2 units of PRBC she denied any hematochezia or melena. Anemia workup showed elevated ferritin, B12 thyroid function test was normal. A CT scan off abdomen showed splenic enlargement without any nodularity of the liver, borderline lymphadenopathy generalized. Patient denies any dizziness chest pain or shortness of breath at rest. She reports having infection and the bowels could have caused her anemia. He denies any joint aches or pains or skin rashes. Past Med Surg Social Fam HX - Past Medical History Medical history: hyperlipidemia, hypertension, myocardial infarction, other Psychiatric history: no psych history - Past Surgical History Surgical History: no surgical history - Social History Smoking Status: Current every day smoker Smokeless Tobacco Status: No Alcohol use: rarely Drug use: none Medications and Allergies Ascorbate Calcium [Vitamin C] 500 mg PO DAILY #30 tablet 05/12/17 [Rx] ALPRAZolam [Xanax 0.5 MG Tablet] 0.5 mg PO BID PRN 07/27/17 [History] Atenolol [Tenormin] 50 mg PO DAILY 07/27/17 [History] Citalopram Hydrobromide [Celexa] 40 mg PO DAILY 07/27/17 [History] Cyanocobalamin (B-12) [Vitamin B12] 1,000 mcg IM Q2W 07/27/17 [History] Diclofenac Sodium [Voltaren] 1 appl TP QID PRN 07/27/17 [History] HYDROcodone/Acet 5/325 mg [[place] 5-325 mg] 1 tab PO TID PRN 07/27/17 [History] Lisinopril/Hydrochlorothiazide [Zestoretic 20-12.5 mg Tablet] 1 each PO BID [History] Nitroglycerin [Nitrostat] 0.4 mg SL Q5M PRN 07/27/17 [History] Ondansetron HCl [Zofran] 4 - 8 mg PO TID PRN 07/27/17 [History] Potassium Chloride [K-Tab ER] 20 meq PO BID 07/27/17 [History] Pravastatin Sodium [Pravachol] 20 mg PO HS 07/27/17 [History] Trazodone HCl 100 mg PO HS 07/27/17 [History] 3 Allergy/AdvReac Type Severity Reaction Status Date / Time No Known Allergies Allergy Verified 05/09/17 09:28 Review of systems: as in HPI Oncology - Exam - Constitutional Vitals: Temp Pulse Resp BP Pulse Ox 98.6 F 82 18 110/57 98 07/28/17 19:00 07/28/17 19:48 07/28/17 19:00 07/28/17 19:00 07/28/17 19:00 General appearance: no acute distress - Head Head exam: Present: atraumatic, normal inspection Additional comments: pallor - Eye Eye exam: Present: conjuntiva pink - ENT ENT exam: Present: mucous membranes moist - Neck Neck exam: Present: full ROM - Cardiovascular Additional comments: JANNY - GI/Abdominal GI/Abdominal exam: Present: normal bowel sounds, soft - Extremities Exam Extremities exam: Present: normal inspection - Neurological Exam Neurological exam: Present: alert, CN II-XII intact, oriented X3 - Psychiatric Psychiatric exam: Present: normal mood - Skin Skin exam: Present: normal color Oncology - Results Labs: Short CBC 07/28/17 07/28/17 07/28/17 Range/Units 03:08 07:00 17:00 WBC 2.6 L 2.5 L (4.3-11.1) K/mcL Hgb 7.0 L 7.5 L 7.8 L (11.5-15.4) g/dL Hct 22.6 L 23.7 L 25.4 L (35.3-44.9) % Plt Count 151 187 (140-400) K/mcL Neutrophils # 1.0 L 1.1 L (1.6-8.9) K/mcL BMP 07/28/17 03:08 Sodium 134 L Potassium 3.7 Chloride 107 Carbon Dioxide 20 L BUN 54 H Creatinine 1.17 Glucose 94 Calcium 7.8 L Urine 07/28/17 Range/Units 02:19 Urine Color Yellow (Yellow) Urine Clarity Clear (Clear) Urine pH 6.0 (5.0-8.0) pH Units Ur Specific [place] > 1.030 H (1.010-1.025) Urine Protein Negative (Neg-Trace) mg/dL Urine Glucose (UA) Normal (Normal) mg/dL CT abd reviewed Consult Discharge Plan - Plan Referrals: Amaris Hamilton MD [Primary Care Provider] -
[2017-07-29] MEDS: Pantoprazole 40 MG in 0.9 % Sodium Chloride Mini Bag 100 ML IVC SCH ×2 (00:26→00:28)
[2017-07-29 05:42] LABS: Basophils % 0.4 %; Hematocrit 25.6 % (35.3-44.9); Immature Granulocytes % 7.8 % (0-4); Lymphocytes # 0.6 K/mcL (0.6-4.6); Lymphocytes % 26.1 %; Mean Corpuscular HGB Conc 31.3 g/dL (31.6-35.5); Mean Corpuscular Hemoglobin 26.9 pg (28.0-33.3); Mean Corpuscular Volume 86.2 fL (83.0-100.0); Mean Platelet Volume 10.9 fL (9.4-12.4); Monocytes # 0.6 K/mcL (0.0-1.3); Neutrophils # 0.9 K/mcL (1.6-8.9); Platelet Count 186 K/mcL (140-400); Red Blood Count 2.97 M/mcL (3.82-4.97); Red Cell Distribution Width 18.3 % (11.5-14.5); Segmented Neutrophils % 38.7 %
[2017-07-29 06:13] LABS: Platelet Estimate Normal (Normal)
[2017-07-29 06:24] LABS: Calcium 8.1 mg/dL (8.6-10.3); Potassium 3.9 mEq/L (3.5-5.1)
--- NOTE | 2017-07-29 08:10 | Discharge Summary ---
<Wayne Naranjo - Last Filed: 07/29/17 11:01> - NOTES TO OUTPATIENT PROVIDER Notes to Outpatient Provider: Patient has been referred to hematology for further workup of chronic anemia. Patient does not appear to have any signs of acute blood loss anemia, however, was critically anemic on admission. Suspicious of dysplastic syndrome versus anemia of chronic disease; patient is presently being further worked up by Dr. Hunter and is expected to follow -up with them on an outpatient basis. Patient will also require further evaluation for elucidated uterine abnormalities found on CT and transvaginal ultrasound while in the emergency department prior to admission. She will need close [employer] follow up, but this has not been specifically arranged. Also, no OV has been scheduled with Heme/Onc by ICU team given that discharge was on a Sunday. Orders not resulted at time of discharge: Pending orders 07/30/17 06:08 Peripheral Bld Flow-[facility] Routine Date of Encounter: 07/29/17 Time of Encounter: 08:19 - Discharge Diagnosis (1) Anemia Priority: Primary Status: Acute Qualifiers: Anemia type: unspecified type Qualified Code(s): D64.9 - Anemia, unspecified (2) Hypotension Priority: Primary Status: Resolved Qualifiers: Hypotension type: unspecified hypotension type Qualified Code(s): I95.9 - Hypotension, unspecified (3) Pancytopenia Priority: Primary Status: Chronic (4) Weight loss Status: Chronic (5) Acute renal injury due to hypovolemia Priority: Secondary Status: Resolved (6) DVT prophylaxis Priority: Secondary Status: Acute - Discharge Medications Home Medications: Ascorbate Calcium [Vitamin C] 500 mg PO DAILY #30 tablet 05/12/17 [Rx] ALPRAZolam [Xanax 0.5 MG Tablet] 0.5 mg PO BID PRN 07/27/17 [History] Atenolol [Tenormin] 50 mg PO DAILY 07/27/17 [History] Citalopram Hydrobromide [Celexa] 40 mg PO DAILY 07/27/17 [History] Cyanocobalamin (B-12) [Vitamin B12] 1,000 mcg IM Q2W 07/27/17 [History] Diclofenac Sodium [Voltaren] 1 appl TP QID PRN 07/27/17 [History] HYDROcodone/Acet 5/325 mg [[place] 5-325 mg] 1 tab PO TID PRN 07/27/17 [History] Lisinopril/Hydrochlorothiazide [Zestoretic 20-12.5 mg Tablet] 1 each PO BID [History] Nitroglycerin [Nitrostat] 0.4 mg SL Q5M PRN 07/27/17 [History] Ondansetron HCl [Zofran] 4 - 8 mg PO TID PRN 07/27/17 [History] Potassium Chloride [K-Tab ER] 20 meq PO BID 07/27/17 [History] Pravastatin Sodium [Pravachol] 20 mg PO HS 07/27/17 [History] Trazodone HCl 100 mg PO HS 07/27/17 [History] Allergies/Adverse Reactions: 3 Allergy/AdvReac Type Severity Reaction Status Date / Time No Known Allergies Allergy Verified 05/09/17 09:28 Labs on day of discharge: Labs from last 24 hours 07/29/17 07/29/17 07/28/17 04:27 04:27 17:00 WBC 2.3 L 2.5 L RBC 2.97 L 2.95 L Hgb 8.0 L 7.8 L Hct 25.6 L 25.4 L MCV 86.2 86.1 MCH 26.9 L 26.4 L MCHC 31.3 L 30.7 L RDW 18.3 H 18.2 H Plt Count 186 187 MPV 10.9 11.0 Immature Gran % 7.8 H 9.8 H Seg Neutrophils % 38.7 42.5 Lymphocytes % 26.1 22.4 Monocytes % 27.0 25.3 Eosinophils % 0.0 0.0 Basophils % 0.4 0.0 Neutrophils # 0.9 L 1.1 L Lymphocytes # 0.6 0.6 Monocytes # 0.6 0.6 Eosinophils # 0.0 0.0 Basophils # 0.0 0.0 Platelet Estimate Normal Large Platelets Present A Sodium 134 L Potassium 3.9 Chloride 108 H Carbon Dioxide 19 L BUN 30 H Creatinine 1.13 Est GFR ( Amer) 59 L Est GFR (Non-Af Amer) 48 L BUN/Creatinine Ratio 27 H Glucose 87 POC Glucose Calculated Osmolality 284 Calcium 8.1 L TSH Random Cortisol 03/24/18 03/24/18 03/24/18 08:59 08:59 01:41 WBC RBC Hgb Hct MCV MCH MCHC RDW Plt Count MPV Immature Gran % Seg Neutrophils % Lymphocytes % Monocytes % Eosinophils % Basophils % Neutrophils # Lymphocytes # Monocytes # Eosinophils # Basophils # Platelet Estimate Large Platelets Sodium Potassium Chloride Carbon Dioxide BUN Creatinine Est GFR ( Amer) Est GFR (Non-Af Amer) BUN/Creatinine Ratio Glucose POC Glucose 102 H Calculated Osmolality Calcium TSH 5.926 H Random Cortisol 15.0 Date of admission: 07/28/17 01:07 Primary care physician: Amaris Hamilton Consults: 07/28/17 11:09 Consult to Oncology Hematology [CONS] Routine Consulting Provider: Oncology [facility] Reason for Consult: Acute on chronic anemia of unclear source Time Notified: 11:11 Call Completed: Yes 07/29/17 08:07 Consult to Occupational Therapy [CONS] Routine Comment: Evaluate, develop and implement POC Reason for Consult: Anemic, stable vitals/Hgb, eval & treat Does patient have active BEDREST order?: No Is patient medically & hemodynamically stable?: Yes Consult to Physical Therapy [CONS] Routine Comment: Evaluate, develop and implement POC Reason for Consult: Anemic, stable vitals and Hgb, eval and treat Does patient have active BEDREST order?: No Is patient medically & hemodynamically stable?: Yes Discharging clinician: Wayne Narajno Anticipated date of discharge: 07/29/17 - Patient Status Disposition: Home, Self-Care Condition: Fair Functional capacity at discharge: independent ambulation Overall status at discharge: patient is progressing back to baseline - Discharge Instructions Instructions: Anemia (DC) Follow Up With: Amaris Hamilton MD [Primary Care Provider] - (Admitted for critical anemia (acute on chronic). Obtained hematology consult on inpatient basis. Pursuing further hematologic workup and outpatient follow-up. Patient declined any gastrointestinal workup. No acute signs or symptoms of gastrointestinal or blood loss.) Oncology [facility] [Provider Group] (Chronic anemia was severe acute anemia corrected by blood transfusion. Blood pressure stable and hemoglobin stable of her past 2 days prior to and including date of discharge. No signs or symptoms of acute loss including gastrointestinal or genitourinary. Patient declined gastrointestinal consultation/workup. Seen by Dr. Hunter on inpatient basis. Patient declined bone marrow biopsy, but was amenable to further hematologic lab workup.) - Diet and Activity Activity: resume usual activities as tolerated Diet: advance to your usual diet - Hospital Course Hospital course: Ms. Burnett is a 67 year old female with chronic anemia who was sent to the emergency department by her primary care physician for critical hemoglobin level. Patient was hypotensive on arrival and was transfused with 2 units pRBCs received prior to admission to ICU. Over hospital course, patient's blood pressure has normalized and maintains adequate MAP, and patient's hemoglobin has remained stable in the 7 to 8 range. There have been no signs of acute blood loss. Due to patient's description of episodic vomiting/ diarrhea as well as weight loss of approximately 50 pounds over the past 9 months, did obtain consult from hematology; patient did decline any bone marrow biopsy to assess for dysplastic syndrome, however, patient is presently being worked up by other means and is expected to follow-up with hematology on an outpatient basis. Other notable findings, although not like a direct source of blood loss, include uterine fibroids/cysts as well as irregularity of endometrial stripe as demonstrated on transvaginal ultrasound & CT-Abd/Pelv. Overall, patient has been opposed to any invasive diagnostics including bone marrow biopsy and endoscopy. Patient is anxious to be discharged and, due to her stability over the last 36 hours, patient seems to be a reasonable candidate for discharge with close follow up. Patient was able to ambulate without any signs of pre-syncope, dyspnea, or vital sign instability; orthostatic vitals positionally unchanged. Pt has scheduled office visit scheduled with her PCP at 1600 on 07/30/17. Extensively discussed return precautions with patient. She is instructed to return to the emergency department upon discharge if she has any new or worsening symptoms including, but not limited to, evidence of active bleeding, dizziness, syncope, shortness of breath, chest pain, nausea, or vomiting; patient clearly understands and acknowledges this advice. - Time Spent with Patient Total time spent providing and/or coordinating discharge services: Physical Examination Vital Signs: Vital Signs, Last 4 Hours Temp Pulse 07/29/17 08:07 98.5 F 07/29/17 07:35 85 07/29/17 04:37 98.9 F 07/29/17 04:25 90 CONSTITUTIONAL: Alert and oriented X3, well-nourished, well appearing, in no apparent distress; anxious to be discharged HEAD: Normocephalic; atraumatic. EYES: PER, no scleral icterus, no drainage, no conjunctival injection, does have mild conjunctival pallor Oropharynx: pink/moist, no tonsillar edema/erythema/exudates RESP: NRD without use of accessory musculature, CTA b/l with no wheezes/rales/ rhonchi CARD: Regular rhythm, without murmurs, rubs, or gallop ABD: grossly normal, soft, non-tender SKIN: normal appearance, no diaphoresis,mottling,jaundice,cyanosis EXT: Rad pulses 2+ and symmetrical; no lateralizing edema; no other lesions seen PSYCH: appropriate mood/affect - VTE Reasons for not Prescribing Prophylaxis: Medical contraindication Documentation of Mechanical Device: Intermittent pneumatic compression device <Harpreet Garcia - Last Filed: 07/29/17 11:15> Orders not resulted at time of discharge: Pending orders 07/30/17 06:08 Peripheral Bld Flow-[facility] Routine Date of Encounter: 07/29/17 Labs on day of discharge: Labs from last 24 hours 07/29/17 07/29/17 07/28/17 04:27 04:27 17:00 WBC 2.3 L 2.5 L RBC 2.97 L 2.95 L Hgb 8.0 L 7.8 L Hct 25.6 L 25.4 L MCV 86.2 86.1 MCH 26.9 L 26.4 L MCHC 31.3 L 30.7 L RDW 18.3 H 18.2 H Plt Count 186 187 MPV 10.9 11.0 Immature Gran % 7.8 H 9.8 H Seg Neutrophils % 38.7 42.5 Lymphocytes % 26.1 22.4 Monocytes % 27.0 25.3 Eosinophils % 0.0 0.0 Basophils % 0.4 0.0 Neutrophils # 0.9 L 1.1 L Lymphocytes # 0.6 0.6 Monocytes # 0.6 0.6 Eosinophils # 0.0 0.0 Basophils # 0.0 0.0 Platelet Estimate Normal Large Platelets Present A Sodium 134 L Potassium 3.9 Chloride 108 H Carbon Dioxide 19 L BUN 30 H Creatinine 1.13 Est GFR ( Amer) 59 L Est GFR (Non-Af Amer) 48 L BUN/Creatinine Ratio 27 H Glucose 87 POC Glucose Calculated Osmolality 284 Calcium 8.1 L 07/28/17 01:41 WBC RBC Hgb Hct MCV MCH MCHC RDW Plt Count MPV Immature Gran % Seg Neutrophils % Lymphocytes % Monocytes % Eosinophils % Basophils % Neutrophils # Lymphocytes # Monocytes # Eosinophils # Basophils # Platelet Estimate Large Platelets Sodium Potassium Chloride Carbon Dioxide BUN Creatinine Est GFR ( Amer) Est GFR (Non-Af Amer) BUN/Creatinine Ratio Glucose POC Glucose 102 H Calculated Osmolality Calcium Date of admission: 07/28/17 01:07 Primary care physician: Amaris Hamilton Consults: 07/28/17 11:09 Consult to Oncology Hematology [CONS] Routine Consulting Provider: Oncology [facility] Reason for Consult: Acute on chronic anemia of unclear source Time Notified: 11:11 Call Completed: Yes 07/29/17 08:07 Consult to Occupational Therapy [CONS] Routine Comment: Evaluate, develop and implement POC Reason for Consult: Anemic, stable vitals/Hgb, eval & treat Does patient have active BEDREST order?: No Is patient medically & hemodynamically stable?: Yes Consult to Physical Therapy [CONS] Routine Comment: Evaluate, develop and implement POC Reason for Consult: Anemic, stable vitals and Hgb, eval and treat Does patient have active BEDREST order?: No Is patient medically & hemodynamically stable?: Yes - Hospital Course Hospital course: Ms. Burnett is a 67 year old female - Time Spent with Patient Total time spent providing and/or coordinating discharge services: Greater than 30 minutes Physical Examination Vital Signs: Vital Signs, Last 4 Hours Temp Pulse Resp BP Pulse Ox 07/29/17 08:21 86 20 106/64 98 07/29/17 08:07 98.5 F 07/29/17 07:35 85 - Attending Attestation I examined this patient and my medical decision-making was reviewed with the Resident Physician. I agree with the documented findings, disposition and treatment plan as described except to the extent set forth below. We independently had [id number] contact with the patient Patient seen and examined at bedside Labs, radiology, chart personally reviewed. Management was reviewed during multidisciplinary critical care rounds. Patient anxious to return home asking to be discharged Vital stable orthostatic negative for hypertension noted to ambulate without issue around the ICU Blood count stable status post transfusion Follow-up PCP within one week and hematology within 2-4 weeks at time of discharge To ED if evidence of syncope presyncope chest pain or bleeding Patient expressed understanding and willingness to participate in plan of care as outlined
[2017-07-29 08:22] VITALS: BP 106/64
--- NOTE | 2017-07-31 06:50 | Electrocardiograph Report ---
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
== END 2017-07-29 11:50 | disposition home or self-care (01) | DRG 809 ==
LOC: EMEROO 20:27 → ICNU 07-28 01:07
PROVIDERS: ADMIT Internal Medicine Hematology & Oncology; ATTEND Internal Medicine Hematology & Oncology

== ENCOUNTER 2017-09-01 15:58 | Inpatient (IN) ==
--- NOTE | 2017-09-01 16:14 | Emergency Department Note ---
Disposition Clinical Impression: Thrombocytopenia, Occult GI bleeding, Hypotension, chronic Anemia Qualifiers: Anemia type: unspecified type Qualified Code(s): D64.9 - Anemia, unspecified Leukocytopenia Qualifiers: Leukopenia type: unspecified Qualified Code(s): D72.819 - Decreased white blood cell count, unspecified Disposition: Admitted As Inpatient Condition: Fair Referrals: NONE,PCP [Non-Partnered Physician] - Forms: ED Satisfaction Letter Time of Disposition: 18:56 General Adult HPI - General Chief complaint: ED Weakness Stated complaint: low bp/blood counts down Time Seen by Provider: 09/01/17 16:12 Source: patient, family Mode of arrival: ambulatory Limitations: no limitations Nursing Notes Reviewed: Yes Vital Signs Reviewed: Yes - History of Present Illness HPI Narrative: Patient is a 67-year-old female with past medical history of hypertension. She also had a recent diagnosis of low white blood cell count, anemia, previous GA. She admits that she was transfused with 2 units apparently 2 weeks ago due to anemia. She is supposed to [facility] Doctor Kenyon, on Sunday for bone marrow biopsy for further investigation. She also admits that she has had some red stools today. Denies any other chest pain, fevers, diarrhea. She does admit to occasional vomiting, nonbloody. She also admits to shortness of breath is worsened with exertion and overall generalized fatigue. Denies any other recent surgeries, any other signs of bleeding. She is not on a blood thinner. Pain Scale: 4 - Related Data Home Medications Medication Instructions Recorded Confirmed ALPRAZolam [Xanax 0.5 MG Tablet] 0.5 mg PO BID PRN 07/27/17 08/21/17 Atenolol [Tenormin] 50 mg PO DAILY 07/27/17 08/21/17 Citalopram Hydrobromide [Celexa] 40 mg PO DAILY 07/27/17 08/21/17 Cyanocobalamin (B-12) [Vitamin B12] 1,000 mcg IM Q2W 07/27/17 08/21/17 Diclofenac Sodium [Voltaren] 1 appl TP QID PRN 07/27/17 08/21/17 HYDROcodone/Acet 5/325 mg [[place] 1 tab PO TID PRN 07/27/17 08/21/17 5-325 mg] Lisinopril/Hydrochlorothiazide 1 each PO BID 07/27/17 08/21/17 [Zestoretic 20-12.5 mg Tablet] Nitroglycerin [Nitrostat] 0.4 mg SL Q5M PRN 07/27/17 08/21/17 Ondansetron HCl [Zofran] 4 - 8 mg PO TID PRN 07/27/17 08/21/17 Potassium Chloride [K-Tab ER] 20 meq PO BID 07/27/17 08/21/17 Pravastatin Sodium [Pravachol] 20 mg PO HS 07/27/17 08/21/17 Trazodone HCl 100 mg PO HS 07/27/17 08/21/17 Levothyroxine [Synthroid] 25 mcg PO 0630 08/21/17 08/21/17 Nitroglycerin [Nitrostat] 0.4 mg SL AD PRN 08/21/17 08/21/17 [place]-3 Fatty Acids [Fish Oil 2,000 mg PO BID 08/21/17 08/21/17 Concentrate] Previous Rx's Medication Instructions Recorded Ascorbate Calcium [Vitamin C] 500 mg PO DAILY #30 tablet 05/12/17 Allergies Allergy/AdvReac Type Severity Reaction Status Date / Time No Known Allergies Allergy Verified 08/21/17 08:23 All systems ED: reviewed and negative except as stated. Constitutional: Denies: fever Cardiovascular: Denies: chest pain, palpitations Respiratory: Reports: dyspnea. Denies: cough, wheezes, hemoptysis Gastrointestinal: Reports: nausea, vomiting, hematochezia. Denies: abdominal pain, diarrhea, constipation, hematemesis, melena Musculoskeletal: Denies: back pain Neurological: Denies: headache, weakness, numbness, paresthesias Endocrine: Reports: fatigue Past Medical History - Past Medical History Attestation: Yes The following information was validated with the patient. 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 - Social History Smoking Status: Current every day smoker Smokeless Tobacco Status: No Alcohol use: Reports: none Drug use: Reports: none Physical Exam Patient is lying in bed with eyes closed, appears very fatigued, pallor noted on face, conjunctiva, oral mucosa - General Limitations: no limitations General appearance: alert - Head Head exam: atraumatic, normocephalic, normal inspection - Eye Eye exam: Present: PERRL, EOMI, other (conjunctival pallor) - ENT ENT exam: normal exam, normal oropharynx, mucous membranes moist - Neck Neck exam: Present: normal inspection, full ROM, trachea midline - Chest Chest inspection: Present: normal inspection, symmetric chest wall rise - Respiratory Respiratory exam: Present: normal lung sounds bilaterally. Absent: respiratory distress, wheezes, stridor - Cardiovascular Cardiovascular exam: Present: normal rhythm, tachycardia, normal heart sounds - Abdominal Exam Abdominal exam: Present: soft, Non-Tender. Absent: tenderness, distention, guarding, rebound, rigidity - Extremities Exam Extremities exam: Present: normal inspection, full ROM. Absent: tenderness, pedal edema - Neurological Exam Neurological exam: Present: alert, oriented X3, CN II-XII intact. Absent: motor sensory deficit - Psychiatric Psychiatric exam: Present: normal affect, normal mood - Skin Skin exam: Present: warm, dry, intact, pallor (Significant facial pallor) Course Course Narrative: Blood pressure was systolic of 80s. Will start patient on 1 L bolus. Patient appears very pale on exam, does have a history of anemia with recent transfusion. We will go ahead and type and screen and then prepare to PRBCs for transfusion. We will also obtain basic blood work, EKG, chest x-ray, troponin. Patient's shortness of breath is very likely due to anemia but will still check for other etiologies. Currently concern for pancytopenia and also GI bleeding. 17:31 labs show leukopenia, anemia, Julian cytopenia. Creatinine is near baseline for the patient. Rectal exam showed no bright red bleeding, no lesions. Occult stool blood test was positive (stool was brown on exam). Transfusion of 2 PRBCs underway. Repeat BP is Systolic 100s. We will admit the patient for pancytopenia, hypotension, occult GI bleed. 17:42 Talked with hospitalist Rashel Jorge, not accepting patient at this time due to concern for BP. He has requested that BP readings be at least 110 systolic over the next hour or two before he will accept. Patient mentating well, vitals are improving. Will continue to monitor BP, will also give additional 1L bolus while waiting on acceptance. Patient herself has refused transfer anywhere else for further care. 18:30 Repeat BP was 99/50s. Previous BPs at other visits were looked at, her previous BPS have been 90s/50s as well. Will call hospitalist for admission. Vital Signs Temperature 98.7 F 09/01/17 16:07 Pulse Rate 128 09/01/17 16:07 Respiratory Rate 14 09/01/17 16:07 Blood Pressure 81/60 09/01/17 16:07 O2 Sat by Pulse Oximetry 99 09/01/17 16:07 Temperature 99.9 F H 09/01/17 18:06 Pulse Rate 110 09/01/17 18:06 Respiratory Rate 18 09/01/17 18:06 Blood Pressure 99/55 09/01/17 18:06 O2 Sat by Pulse Oximetry 97 09/01/17 17:51 Oxygen Delivery Oxygen Delivery Room Air Medical Decision Making - MDM Narrative Medical decision making narrative: Blood pressure was systolic of 80s. Will start patient on 1 L bolus. Patient appears very pale on exam, does have a history of anemia with recent transfusion. We will go ahead and type and screen and then prepare to PRBCs for transfusion. We will also obtain basic blood work, EKG, chest x-ray, troponin. Patient's shortness of breath is very likely due to anemia but will still check for other etiologies. Currently concern for pancytopenia and also GI bleeding. 17:31 labs show leukopenia, anemia, Julian cytopenia. Creatinine is near baseline for the patient. Rectal exam showed no bright red bleeding, no lesions. Occult stool blood test was positive (stool was brown on exam). Transfusion of 2 PRBCs underway. Repeat BP is Systolic 100s. We will admit the patient for pancytopenia, hypotension, occult GI bleed. 17:42 Talked with hospitalist Rashel Jorge, not accepting patient at this time due to concern for BP. He has requested that BP readings be at least 110 systolic over the next hour or two before he will accept. Patient mentating well, vitals are improving. Will continue to monitor BP, will also give additional 1L bolus while waiting on acceptance. Patient herself has refused transfer anywhere else for further care. 18:30 Repeat BP was 99/50s. Previous BPs at other visits were looked at, her previous BPS have been 90s/50s as well. Will call hospitalist for admission. - Medical Records Medical records reviewed: Yes I reviewed the patient's medical records. - Lab Data Lab results reviewed: Yes I reviewed the patient's lab results. Result diagrams: 09/01/17 16:28 09/01/17 16:28 Lab Results 09/01/17 09/01/17 09/01/17 Range/Units 16:28 16:28 16:28 WBC 3.1 L (4.3-11.1) K/mcL RBC 3.16 L (3.82-4.97) M/mcL Hgb 8.7 L (11.5-15.4) g/dL Hct 27.3 L (35.3-44.9) % MCV 86.4 (83.0-100.0) fL MCH 27.5 L (28.0-33.3) pg MCHC 31.9 (31.6-35.5) g/dL RDW 18.0 H (11.5-14.5) % Plt Count 134 L (140-400) K/mcL MPV 10.7 (9.4-12.4) fL Immature Gran % 4.2 H (0-4) % Seg Neutrophils % 47.6 % Lymphocytes % 10.0 % Monocytes % 38.2 % Eosinophils % 0.0 % Basophils % 0.0 % Neutrophils # 1.5 L (1.6-8.9) K/mcL Lymphocytes # 0.3 L (0.6-4.6) K/mcL Monocytes # 1.2 (0.0-1.3) K/mcL Eosinophils # 0.0 (0.0-0.6) K/mcL Basophils # 0.0 (0.0-0.2) K/mcL Platelet Estimate Normal (Normal) Anisocytosis 1+ A (Not Present) PT 18.2 H (9.4-12.1) Seconds INR 1.7 APTT 34.0 (26.0-36.0) Seconds Sodium (136-145) mEq/L Potassium (3.5-5.1) mEq/L Chloride (98-107) mEq/L Carbon Dioxide (23-29) mEq/L BUN (8-23) mg/dL Creatinine (0.60-1.20) mg/dL Est GFR ( Amer) (> 60) Est GFR (Non-Af Amer) (> 60) BUN/Creatinine Ratio (6-26) Glucose (70-105) mg/dL Calculated Osmolality (280-300) Calcium (8.6-10.3) mg/dL Total Bilirubin (0.3-1.0) mg/dL Direct Bilirubin (0.0-0.2) mg/dL Indirect Bilirubin (0.0-1.2) mg/dL AST (13-39) Units/L ALT (7-52) Units/L Alkaline Phosphatase (34-104) Units/L Troponin I (< 0.04) ng/mL Serum Total Protein (6.4-8.9) g/dL Albumin (3.5-5.7) g/dL Globulin (2.4-3.5) g/dL Albumin/Globulin Ratio (1.1-2.2) Lipase (11-82) Units/L Blood Type B POSITIVE Antibody Screen NEGATIVE Crossmatch See Detail 09/01/17 09/01/17 Range/Units 16:28 16:28 WBC (4.3-11.1) K/mcL RBC (3.82-4.97) M/mcL Hgb (11.5-15.4) g/dL Hct (35.3-44.9) % MCV (83.0-100.0) fL MCH (28.0-33.3) pg MCHC (31.6-35.5) g/dL RDW (11.5-14.5) % Plt Count (140-400) K/mcL MPV (9.4-12.4) fL Immature Gran % (0-4) % Seg Neutrophils % % Lymphocytes % % Monocytes % % Eosinophils % % Basophils % % Neutrophils # (1.6-8.9) K/mcL Lymphocytes # (0.6-4.6) K/mcL Monocytes # (0.0-1.3) K/mcL Eosinophils # (0.0-0.6) K/mcL Basophils # (0.0-0.2) K/mcL Platelet Estimate (Normal) Anisocytosis (Not Present) PT (9.4-12.1) Seconds INR APTT (26.0-36.0) Seconds Sodium 130 L (136-145) mEq/L Potassium 4.0 (3.5-5.1) mEq/L Chloride 101 (98-107) mEq/L Carbon Dioxide 20 L (23-29) mEq/L BUN 28 H (8-23) mg/dL Creatinine 1.21 H (0.60-1.20) mg/dL Est GFR ( Amer) 54 L (> 60) Est GFR (Non-Af Amer) 45 L (> 60) BUN/Creatinine Ratio 23 (6-26) Glucose 144 H (70-105) mg/dL Calculated Osmolality 278 L (280-300) Calcium 8.8 (8.6-10.3) mg/dL Total Bilirubin 0.9 (0.3-1.0) mg/dL Direct Bilirubin 0.3 H (0.0-0.2) mg/dL Indirect Bilirubin 0.6 (0.0-1.2) mg/dL AST 7 L (13-39) Units/L ALT 5 L (7-52) Units/L Alkaline Phosphatase 108 H (34-104) Units/L Troponin I < 0.03 (< 0.04) ng/mL Serum Total Protein 6.9 (6.4-8.9) g/dL Albumin 3.5 (3.5-5.7) g/dL Globulin 3.4 (2.4-3.5) g/dL Albumin/Globulin Ratio 1.0 L (1.1-2.2) Lipase 6 L (11-82) Units/L Blood Type Antibody Screen Crossmatch - Radiology Data Radiology results reviewed: Yes I reviewed the patient's radiology results. Chest X-Ray 09/01/17 16:21 IMPRESSION: Unchanged appearance of the chest without acute airspace disease identified. D/ / Darrius Engle / Darrius Engle Interpreting Provider: Darrius Engle - EKG Data EKG #1 EKG attestation: Yes I reviewed and interpreted this EKG. EKG results narrative: 09/01/2017 at 16:14. Sinus tachycardia. Rate 126. PA 146. QRS 88. QTC 363. No acute ST elevation or depression. S.B.A.R. - S.B.A.R. Situation: Demographics, MOA Background: Presenting Complaint, Relevant PMH, Meds, & Allergies Assessment: Vital Signs, Course and respsone to treatment, Exam Concerns, Patient/Family Expectation, Pertinant Lab Results Recommendation: Barrier(s) to disposition, Recommendation based on pending studies, treatments, or consults S.B.A.R. Report Given to: Rashel Jorge
--- NOTE | 2017-09-01 16:19 | Emergency Department Note ---
Disposition Clinical Impression: Anemia, Leukocytopenia, Thrombocytopenia, Occult GI bleeding, Hypotension, chronic Disposition: Admitted As Inpatient Condition: Fair General Adult HPI - General Chief complaint: ED Weakness Stated complaint: low bp/blood counts down Time Seen by Provider: 09/01/17 16:12 Source: patient, family Mode of arrival: ambulatory Limitations: no limitations - History of Present Illness Pain Scale: 4 - Related Data Home Medications Medication Instructions Recorded Confirmed ALPRAZolam [Xanax 0.5 MG Tablet] 0.5 mg PO BID PRN 07/27/17 09/01/17 Atenolol [Tenormin] 50 mg PO DAILY 07/27/17 09/01/17 Citalopram Hydrobromide [Celexa] 40 mg PO DAILY 07/27/17 08/21/17 Cyanocobalamin (B-12) [Vitamin B12] 1,000 mcg IM Q2W 07/27/17 09/01/17 Diclofenac Sodium [Voltaren] 1 appl TP QID PRN 07/27/17 09/01/17 HYDROcodone/Acet 5/325 mg [[place] 1 tab PO TID PRN 07/27/17 09/01/17 5-325 mg] Lisinopril/Hydrochlorothiazide 1 each PO BID 07/27/17 09/01/17 [Zestoretic 20-12.5 mg Tablet] Nitroglycerin [Nitrostat] 0.4 mg SL Q5M PRN 07/27/17 09/01/17 Ondansetron HCl [Zofran] 4 - 8 mg PO TID PRN 07/27/17 09/01/17 Potassium Chloride [K-Tab ER] 20 meq PO BID 07/27/17 09/01/17 Pravastatin Sodium [Pravachol] 20 mg PO HS 07/27/17 09/01/17 Trazodone HCl 100 mg PO HS 07/27/17 09/01/17 Levothyroxine [Synthroid] 25 mcg PO 0630 08/21/17 09/01/17 Nitroglycerin [Nitrostat] 0.4 mg SL AD PRN 08/21/17 09/01/17 [place]-3 Fatty Acids [Fish Oil 2,000 mg PO BID 08/21/17 09/01/17 Concentrate] Previous Rx's Medication Instructions Recorded Ascorbate Calcium [Vitamin C] 500 mg PO DAILY #30 tablet 05/12/17 Allergies Allergy/AdvReac Type Severity Reaction Status Date / Time No Known Allergies Allergy Verified 08/21/17 08:23 Past Medical History - Past Medical History Medical history: Reports: hyperlipidemia, hypertension, myocardial infarction, other Surgical history: Reports: no surgical history Psychiatric history: Reports: no 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 - Social History Smoking Status: Current every day smoker Smokeless Tobacco Status: No Alcohol use: Reports: none Drug use: Reports: none Physical Exam - General Limitations: no limitations General appearance: alert Course Vital Signs Temperature 98.7 F 09/01/17 16:07 Pulse Rate 128 09/01/17 16:07 Respiratory Rate 14 09/01/17 16:07 Blood Pressure 81/60 09/01/17 16:07 O2 Sat by Pulse Oximetry 99 09/01/17 16:07 Temperature 99.1 F 09/02/17 03:30 Pulse Rate 95 09/02/17 03:30 Respiratory Rate 16 09/02/17 03:30 Blood Pressure 94/57 09/02/17 03:30 O2 Sat by Pulse Oximetry 100 09/02/17 03:30 Oxygen Delivery Oxygen Delivery Room Air Medical Decision Making - Lab Data Result diagrams: 09/02/17 01:10 09/02/17 01:10 Lab Results 09/01/17 09/01/17 09/01/17 Range/Units 16:28 16:28 16:28 WBC 3.1 L (4.3-11.1) K/mcL RBC 3.16 L (3.82-4.97) M/mcL Hgb 8.7 L (11.5-15.4) g/dL Hct 27.3 L (35.3-44.9) % MCV 86.4 (83.0-100.0) fL MCH 27.5 L (28.0-33.3) pg MCHC 31.9 (31.6-35.5) g/dL RDW 18.0 H (11.5-14.5) % Plt Count 134 L (140-400) K/mcL MPV 10.7 (9.4-12.4) fL Immature Gran % 4.2 H (0-4) % Seg Neutrophils % 47.6 % Lymphocytes % 10.0 % Monocytes % 38.2 % Eosinophils % 0.0 % Basophils % 0.0 % Neutrophils # 1.5 L (1.6-8.9) K/mcL Lymphocytes # 0.3 L (0.6-4.6) K/mcL Monocytes # 1.2 (0.0-1.3) K/mcL Eosinophils # 0.0 (0.0-0.6) K/mcL Basophils # 0.0 (0.0-0.2) K/mcL Platelet Estimate Normal (Normal) Anisocytosis 1+ A (Not Present) PT 18.2 H (9.4-12.1) Seconds INR 1.7 APTT 34.0 (26.0-36.0) Seconds Sodium (136-145) mEq/L Potassium (3.5-5.1) mEq/L Chloride (98-107) mEq/L Carbon Dioxide (23-29) mEq/L BUN (8-23) mg/dL Creatinine (0.60-1.20) mg/dL Est GFR ( Amer) (> 60) Est GFR (Non-Af Amer) (> 60) BUN/Creatinine Ratio (6-26) Glucose (70-105) mg/dL Calculated Osmolality (280-300) Calcium (8.6-10.3) mg/dL Total Bilirubin (0.3-1.0) mg/dL Direct Bilirubin (0.0-0.2) mg/dL Indirect Bilirubin (0.0-1.2) mg/dL AST (13-39) Units/L ALT (7-52) Units/L Alkaline Phosphatase (34-104) Units/L Troponin I (< 0.04) ng/mL Serum Total Protein (6.4-8.9) g/dL Albumin (3.5-5.7) g/dL Globulin (2.4-3.5) g/dL Albumin/Globulin Ratio (1.1-2.2) Lipase (11-82) Units/L Blood Type B POSITIVE Antibody Screen NEGATIVE Crossmatch See Detail 09/01/17 09/01/17 Range/Units 16:28 16:28 WBC (4.3-11.1) K/mcL RBC (3.82-4.97) M/mcL Hgb (11.5-15.4) g/dL Hct (35.3-44.9) % MCV (83.0-100.0) fL MCH (28.0-33.3) pg MCHC (31.6-35.5) g/dL RDW (11.5-14.5) % Plt Count (140-400) K/mcL MPV (9.4-12.4) fL Immature Gran % (0-4) % Seg Neutrophils % % Lymphocytes % % Monocytes % % Eosinophils % % Basophils % % Neutrophils # (1.6-8.9) K/mcL Lymphocytes # (0.6-4.6) K/mcL Monocytes # (0.0-1.3) K/mcL Eosinophils # (0.0-0.6) K/mcL Basophils # (0.0-0.2) K/mcL Platelet Estimate (Normal) Anisocytosis (Not Present) PT (9.4-12.1) Seconds INR APTT (26.0-36.0) Seconds Sodium 130 L (136-145) mEq/L Potassium 4.0 (3.5-5.1) mEq/L Chloride 101 (98-107) mEq/L Carbon Dioxide 20 L (23-29) mEq/L BUN 28 H (8-23) mg/dL Creatinine 1.21 H (0.60-1.20) mg/dL Est GFR ( Amer) 54 L (> 60) Est GFR (Non-Af Amer) 45 L (> 60) BUN/Creatinine Ratio 23 (6-26) Glucose 144 H (70-105) mg/dL Calculated Osmolality 278 L (280-300) Calcium 8.8 (8.6-10.3) mg/dL Total Bilirubin 0.9 (0.3-1.0) mg/dL Direct Bilirubin 0.3 H (0.0-0.2) mg/dL Indirect Bilirubin 0.6 (0.0-1.2) mg/dL AST 7 L (13-39) Units/L ALT 5 L (7-52) Units/L Alkaline Phosphatase 108 H (34-104) Units/L Troponin I < 0.03 (< 0.04) ng/mL Serum Total Protein 6.9 (6.4-8.9) g/dL Albumin 3.5 (3.5-5.7) g/dL Globulin 3.4 (2.4-3.5) g/dL Albumin/Globulin Ratio 1.0 L (1.1-2.2) Lipase 6 L (11-82) Units/L Blood Type Antibody Screen Crossmatch Critical Care Time Critical Care Time: Yes Total Critical Care Time: 30 Attestation: The high probability of a clinically significant, sudden or life threatening deterioration of the [] system(s) required my full and direct attention, intervention and personal management. The aggregate critical care time was [] minutes. This time is in addition to time spent performing reported procedures but includes the following: [] Data Review and interpretation [] Patient assessment and monitoring of vital signs [] Documentation [] Medication orders and management Attestation Statement - Attestation Attestation: I examined this patient and my medical decision-making was reviewed with the Resident Physician. I agree with the documented findings, disposition and treatment plan as described except to the extent set forth below. Ynew-[id number] time provided Patient presents pale appearing and tachycardic. She is hypotensive. She is pale appearing on exam. Evaluated immediately upon arrival to the medical treatment area in conjunction with the resident physician . Labs dated 12 days ago reviewed by me showing glucopenia and anemia.
[2017-09-01] MEDS ORDERED: 0.9 % Sodium Chloride 1,000 ML IVC ONE (16:22)
[2017-09-01 16:47] LABS: Hematocrit 27.3 % (35.3-44.9); Hemoglobin 8.7 g/dL (11.5-15.4); Immature Granulocytes % 4.2 % (0-4); Lymphocytes # 0.3 K/mcL (0.6-4.6); Mean Corpuscular HGB Conc 31.9 g/dL (31.6-35.5); Mean Corpuscular Hemoglobin 27.5 pg (28.0-33.3); Mean Corpuscular Volume 86.4 fL (83.0-100.0); Mean Platelet Volume 10.7 fL (9.4-12.4); Monocytes # 1.2 K/mcL (0.0-1.3); Monocytes % 38.2 %; Neutrophils # 1.5 K/mcL (1.6-8.9); Platelet Count 134 K/mcL (140-400); Red Blood Count 3.16 M/mcL (3.82-4.97); Segmented Neutrophils % 47.6 %
[2017-09-01 16:51] LABS: INR 1.7; Prothrombin Time 18.2 Seconds (9.4-12.1)
[2017-09-01 17:11] LABS: Albumin 3.5 g/dL (3.5-5.7); Bilirubin,Direct 0.3 mg/dL (0.0-0.2); Bilirubin,Indirect 0.6 mg/dL (0.0-1.2); Bilirubin,Total 0.9 mg/dL (0.3-1.0); Calcium 8.8 mg/dL (8.6-10.3); Globulin 3.4 g/dL (2.4-3.5); Total Protein 6.9 g/dL (6.4-8.9)
[2017-09-01] MEDS ORDERED: 0.9 % Sodium Chloride 250 ML ONE ×2 (17:33→20:52)
[2017-09-01 18:04] LABS: Anisocytosis 1+ (Not Present); Platelet Estimate Normal (Normal)
[2017-09-01] MEDS: 0.9 % Sodium Chloride 1,000 ML IVC ONE ×2 (18:11→19:27)
--- NOTE | 2017-09-01 19:29 | Internal Med History&Physical ---
Date of Encounter: 09/01/17 Time of Encounter: 07:50 Internal Medicine - H&P: HPI Chief complaint: Weak and tired Admitted From: Emergency Dept Plans for Post Hospital Care: Home History of present illness: Ms. Burnett is a 67 year old female with history of hypertension, hyperlipidemia, SD and pericarditis approximately 20 years ago, and anemia who presents to the ED with severe weakness and fatigue with been going on for some time. She is a patient of Dr. Prescott, and she has been worked up recently for pancytopenia with severe anemia. She says this has been going on for approximately 8 months, and she has had periods of progressive weakness which have required blood transfusions in the past. Most recently she did have a transfusion of 2 packed red blood cell units approximately 2 weeks ago. In association with this, the patient does say that she has had some shortness of breath which she has noticed getting worse, and she does say that she has lost approximately 60 pounds in the past 8 months unintentionally. Her appetite is poor although she is able to eat. She also has had some falls but there are several months back. She was scheduled to have a bone marrow biopsy about one week for further evaluation of this pancytopenia, however she was not able to wait until that time. She does say that she had some issues with constipation and diarrhea last night with minimal vomiting however she denies any melena, hematochezia, hematemesis. She has had no cough, fever, chills, sweats. She otherwise has no acute complaints. In the ED the patient did have a chest x-ray which did not show any acute intrathoracic process, however she was also found to be hypotensive with a blood pressure of 81/60 and she was also tachycardic. At that time a CBC did demonstrate a hemoglobin of 8.7, however the patient was symptomatic so she was transfused with 2 units packed red blood cells. At that time they did call for admission. Past Med Surg Social Fam HX - Past Medical History Medical history: hyperlipidemia, hypertension, myocardial infarction, other Psychiatric history: no psych history - Past Surgical History Surgical History: no surgical history - Social History Smoking Status: Current every day smoker Smokeless Tobacco Status: No Alcohol use: none Drug use: none Internal Medicine - H&P: Meds Ascorbate Calcium [Vitamin C] 500 mg PO DAILY #30 tablet 05/12/17 [Rx] ALPRAZolam [Xanax 0.5 MG Tablet] 0.5 mg PO BID PRN 07/27/17 [History] Atenolol [Tenormin] 50 mg PO DAILY 07/27/17 [History] Citalopram Hydrobromide [Celexa] 40 mg PO DAILY 07/27/17 [History] Cyanocobalamin (B-12) [Vitamin B12] 1,000 mcg IM Q2W 07/27/17 [History] Diclofenac Sodium [Voltaren] 1 appl TP QID PRN 07/27/17 [History] HYDROcodone/Acet 5/325 mg [[place] 5-325 mg] 1 tab PO TID PRN 07/27/17 [History] Lisinopril/Hydrochlorothiazide [Zestoretic 20-12.5 mg Tablet] 1 each PO BID [History] Nitroglycerin [Nitrostat] 0.4 mg SL Q5M PRN 07/27/17 [History] Ondansetron HCl [Zofran] 4 - 8 mg PO TID PRN 07/27/17 [History] Potassium Chloride [K-Tab ER] 20 meq PO BID 07/27/17 [History] Pravastatin Sodium [Pravachol] 20 mg PO HS 07/27/17 [History] Trazodone HCl 100 mg PO HS 07/27/17 [History] Levothyroxine [Synthroid] 25 mcg PO 0630 08/21/17 [History] Nitroglycerin [Nitrostat] 0.4 mg SL AD PRN 08/21/17 [History] [place]-3 Fatty Acids [Fish Oil Concentrate] 2,000 mg PO BID 08/21/17 [History] 3 Allergy/AdvReac Type Severity Reaction Status Date / Time No Known Allergies Allergy Verified 08/21/17 08:23 All Systems PM: A 10-system review of systems was performed and is negative for pertinent findings except as documented above in the HPI. Review of systems: Constitutional: Admits to weight loss of 60lb in 8 months, generalized weakness and fatigue. Denies fevers, chills, sweats. Head/Neck: Denies TORRES, neck stiffness EENT: Denies vision changes/blurriness, rhinorrhea, congestion, sore throat CVS: Admits to minimal PEREZ, however denies chest pains, edema, orthopnea, PND Pulm: Denies SOB, cough, sputum, hemoptysis, wheezing GI: Denies abdominal pain, melena, hematemasis. She does admit to some nausea, vomiting, diarrhea last evening. : Denies dysuria, increased frequency, urgency, hematuria Heme: Denies ease of bleeding or bruising MSK: Denies joint pain, limited ROM Skin: Denies rashes, ulcers, color changes Neuro: Denies TORRES, paresthesias, focal deficits, ataxia - Constitutional Vitals: Temp Pulse Resp BP Pulse Ox 99.1 F 95 22 91/51 98 09/01/17 19:23 09/01/17 19:23 09/01/17 19:23 09/01/17 19:23 09/01/17 19:23 Exam: Gen: Vitals noted. No acute distress. Pale appearing HEENT: PERRL/EOMI with pale conjunctiva, oropharynx clear and dry, Normocephalic , atraumatic Neck: Supple. No adenopathy. Cardiac: RRR, no murmur, +S1/S2 Pulmonary: CTA bilaterally, no wheezes, rales or rhonchi, equal chest expansion Abdomen: soft, nontender, BS noted, no guarding Back: Nontender throughout. MSK: ROM intact, no joint swelling noted Extremities: no BLE edema, nontender calf, no cyanosis or clubbing Neuro: A&Ox3, moves all extremities, no focal deficits Psych: Appropriate mood and behavior Internal Med - H&P Results - Labs CBC & Chem 7: 09/01/17 16:28 09/01/17 16:28 Labs: Short CBC 09/01/17 Range/Units 16:28 WBC 3.1 L (4.3-11.1) K/mcL Hgb 8.7 L (11.5-15.4) g/dL Hct 27.3 L (35.3-44.9) % Plt Count 134 L (140-400) K/mcL Neutrophils # 1.5 L (1.6-8.9) K/mcL BMP 09/01/17 16:28 Sodium 130 L Potassium 4.0 Chloride 101 Carbon Dioxide 20 L BUN 28 H Creatinine 1.21 H Glucose 144 H Calcium 8.8 Cardiac Enzymes 09/01/17 Range/Units 16:28 Troponin I < 0.03 (< 0.04) ng/mL Liver Function 09/01/17 Range/Units 16:28 Total Bilirubin 0.9 (0.3-1.0) mg/dL Direct Bilirubin 0.3 H (0.0-0.2) mg/dL AST 7 L (13-39) Units/L ALT 5 L (7-52) Units/L Alkaline Phosphatase 108 H (34-104) Units/L Albumin 3.5 (3.5-5.7) g/dL - Impressions ITS Impressions Chest X-Ray 09/01/17 16:21 IMPRESSION: Unchanged appearance of the chest without acute airspace disease identified. D/ / Darrius Engle / Darrius Engle Interpreting Provider: Darrius Engle - Assessment and plan (1) Anemia Current Visit: Yes Status: Acute Assessment and plan: Acute on chronic anemia which is symptomatic Patient had hemoglobin 8.7 but has required blood transfusions in the past She has bone marrow biopsy planned for later this week with Dr. Prescott Occult blood was positive in stool The patient will receive 2 units PRBC Surgery consult for EGD and colonoscopy tomorrow Qualifiers: Anemia type: unspecified type Qualified Code(s): D64.9 - Anemia, unspecified (2) Hypotension Current Visit: Yes Status: Acute Assessment and plan: Hypotension, likely secondary to anemia and fluid depletion Patient received 2 units packed red blood cells in the ED as well as fluid We will continue with maintenance fluids, cardiac monitoring Hold blood pressure medications Qualifiers: Hypotension type: unspecified hypotension type Qualified Code(s): I95.9 - Hypotension, unspecified (3) Weakness Current Visit: Yes Status: Acute Assessment and plan: Weakness secondary to anemia and hypotension We will get a PT and OT consult for the morning (4) Chronic kidney disease Current Visit: Yes Status: Acute Assessment and plan: Elevated serum creatinine which appears chronic and stable We will give the patient fluids and blood Avoid nephrotoxic agents as possible Qualifiers: Chronic kidney disease stage: stage 2 (mild) Qualified Code(s): N18.2 - Chronic kidney disease, stage 2 (mild) (5) DVT prophylaxis Current Visit: No Status: Acute Assessment and plan: SCDs - Time Spent With Patient Total time spent is greater than 50% in coordination of care (as documented) at patient's floor/unit and/or counseling patient:
--- NOTE | 2017-09-01 19:47 | Event Note ---
Date of Encounter: 09/02/17 Time of Encounter: 19:39 Patient was seen and examined. I agree with the H&P as written by the resident physician. Patient with history of CKD, HTN, CAD, and pancytopenia requiring transfusions and being worked up in the outpatient setting by hematology. She is here with generalized weakness and shortness of breath. Has been losing significant weight unintentionally. Patient had a hospital stay last month where she was hesitant to get any invasive procedures to work up her pancytopenia. The suspicion is a bone marrow pathology and it seems she followed up with Dr. Prescott with plans for a bone marrow biospy to be done next week. She presents again hypotensive with again pancytopenia findings. hgb was 8.7 on admission which is actually around her baseline lately. She received 2 units in the ED as well as IV fluids due to systolic BP in the 80s. This improved into the 90s after IVF and PRBCs transfusion. Patient is tachycardic on arrival with Tmax of 99.9. Will admit the patient to tele Monitor H/H. IV PPI IV fluids Hold antihypertensives c/s surgery for scopes. + FOBT in ED and patient is willing to undergo EGD/ colonoscopy Consider a consult to hematology in the morning. For now I think the patient can be transfused and monitored hemodynamically and return to her regular follow up appointments for the bone marrow biopsy [facility]
[2017-09-01] MEDS ORDERED: Naloxone 0.4 MG/ML INJ IVP PRN (20:23)
[2017-09-01] MEDS: 0.9 % Sodium Chloride 1,000 ML IVC SCH (20:53)
[2017-09-01] MEDS ORDERED: *HR* HYDROcodone/Acet 5/325 mg TABLET PO PRN (22:20)
[2017-09-01] MEDS ORDERED: Cyanocobalamin (B-12) 1,000 MCG/ML VIAL IM SCH (22:30)
[2017-09-01] MEDS: traZODone 50 MG TABLET PO SCH (23:20)
[2017-09-02 01:29] LABS: Basophils % 0.4 %; Mean Corpuscular Volume 87.9 fL (83.0-100.0)
[2017-09-02 01:31] LABS: Hematocrit 32.8 % (35.3-44.9); Hemoglobin 10.7 g/dL (11.5-15.4); Immature Granulocytes % 4.9 % (0-4); Immature Platelets 2.6 % (1.1-6.1); Lymphocytes # 0.3 K/mcL (0.6-4.6); Lymphocytes % 9.5 %; Mean Corpuscular HGB Conc 32.6 g/dL (31.6-35.5); Mean Corpuscular Hemoglobin 28.7 pg (28.0-33.3); Mean Platelet Volume 11.8 fL (9.4-12.4); Monocytes % 36.5 %; Neutrophils # 1.3 K/mcL (1.6-8.9); Red Blood Count 3.73 M/mcL (3.82-4.97); Red Cell Distribution Width 16.2 % (11.5-14.5); Segmented Neutrophils % 48.7 %
[2017-09-02 01:50] LABS: Albumin 2.8 g/dL (3.5-5.7); Bilirubin,Total 1.5 mg/dL (0.3-1.0); Calcium 7.7 mg/dL (8.6-10.3); Globulin 2.9 g/dL (2.4-3.5); Magnesium 1.6 mg/dL (1.6-2.6); Potassium 3.8 mEq/L (3.5-5.1); Total Protein 5.7 g/dL (6.4-8.9)
[2017-09-02 02:01] LABS: Platelet Count 78 K/mcL (140-400)
[2017-09-02 02:03] LABS: Platelet Estimate Decreased (Normal)
[2017-09-02] MEDS: 0.9 % Sodium Chloride 1,000 ML IVC SCH ×2 (05:33→22:23)
[2017-09-02] MEDS: Levothyroxine 25 MCG TABLET PO SCH (05:33)
[2017-09-02] MEDS: Pantoprazole 40 MG VIAL IVP SCH ×2 (05:33→18:17)
[2017-09-02] MEDS ORDERED: Polyethylene Glycol 3350 255 GM POWDER PO ONE (09:35)
--- NOTE | 2017-09-02 09:49 | General Surgery Consult Note ---
<Fuentes Guerra - Last Filed: 09/02/17 11:30> Date of Encounter: 09/02/17 Time of Encounter: 09:00 Assessment and Plan (1) Occult GI bleeding Current Visit: Yes Status: Acute Stool occult positve. Patient hx of chronic anemia and pancytopenia where patient intermittently becomes symptomatic requiring transfusion plan: clear liquid diet now NPO at midnight bowel prep today Colonoscopy/EGD tomorrow. (2) Anemia Current Visit: Yes Status: Acute See plan above. Qualifiers: Anemia type: unspecified type Qualified Code(s): D64.9 - Anemia, unspecified (3) Pancytopenia Current Visit: No Status: Chronic Pt follows with Dr. Prescott WBC 2.6 RBC 3.73 Plt 78 continue to monitor management per primary team. History of Present Illness Consult date: 09/01/17 Reason for consult: endoscopy Requesting physician: Yeyo Mckeon History of present illness: 67 yo F c PMHx of hypertension, hyperlipidemia, MT, and anemia who reports to the ED c/o symptomatic anemia presenting with weakness. Symptoms have been goign on for aproximately 8 months. Patient is currently under the care of Dr. Prescott (heme/onc) for pancytopenia. Patient has refused full work up previously. Patient has had to have several transfusions for symptomatic anemia. Patient was scheduled to have a bone marrow biopsy a week from now, but patient felt weak at home with sme lightheadedness, SOB and tachycardia and came into the ED. Patient denies melena, hematochezia, hematemesis. Patient reprots constipation and diarrhea last night, and some vomiting. In the ED patient was found to be hypotensive and tachycardic. Hgb 8.7, but sine she was symptomatic she was transfused 2 units PRBC. Patient reponded appropriately and her hgb is now 10.7 and she reports her symptoms have resolved. She still have markedly low WBC 2.6 and Platelets 78 this morning. Hemocult in ED was positive for occult blood products. Surgery was consulted for endoscopy/colonoscopy. Past Med Surg Social Fam HX - Past Medical History Medical history: hyperlipidemia, hypertension, myocardial infarction, other Psychiatric history: no psych history - Past Surgical History Surgical History: no surgical history - Social History Smoking Status: Current every day smoker Packs per day: 1 Smokeless Tobacco Status: No Alcohol use: none Drug use: none - Family History Mother Living Status: Hx Family Cancer: Yes Medications and Allergies ALPRAZolam [Xanax 0.5 MG Tablet] 0.5 mg PO BID PRN 07/27/17 [History] Atenolol [Tenormin] 50 mg PO DAILY 07/27/17 [History] Cyanocobalamin (B-12) [Vitamin B12] 1,000 mcg IM Q2W 07/27/17 [History] Diclofenac Sodium [Voltaren] 1 appl TP QID PRN 07/27/17 [History] HYDROcodone/Acet 5/325 mg [[place] 5-325 mg] 1 tab PO TID PRN 07/27/17 [History] Nitroglycerin [Nitrostat] 0.4 mg SL Q5M PRN 07/27/17 [History] Ondansetron HCl [Zofran] 4 - 8 mg PO TID PRN 07/27/17 [History] Potassium Chloride [K-Tab ER] 20 meq PO BID 07/27/17 [History] Pravastatin Sodium [Pravachol] 20 mg PO HS 07/27/17 [History] Trazodone HCl 100 mg PO HS 07/27/17 [History] Levothyroxine [Synthroid] 25 mcg PO 0630 08/21/17 [History] [place]-3 Fatty Acids [Fish Oil Concentrate] 2,000 mg PO BID 08/21/17 [History] 3 Allergy/AdvReac Type Severity Reaction Status Date / Time No Known Allergies Allergy Verified 09/02/17 11:03 Review of Systems All systems PM: The remainder of the systems were reviewed and are negative General Surgery Exam Initial Vital Signs Temp Pulse Resp BP Pulse Ox 98.7 F 128 14 81/60 99 09/01/17 16:07 09/01/17 16:07 09/01/17 16:07 09/01/17 16:07 09/01/17 16:07 - General physical appearance well developed, well nourished, no distress - Eyes normal ocular movement - ENT dry mucosa - Neck trachea midline - Respiratory normal expansion, normal respiratory effort, clear to auscultation - Cardiovascular Cardiovascular exam: Present: RRR, no murmurs/rubs/gallops - Abdomen Abdomen general surgery: Present: bowel sounds present, soft, non tender - Integumentary Integumentary general surgery: Present: warm and dry - Neurologic Present: CN 2-12 grossly intact - Musculoskeletal Present: normal posture - Psychiatric Psychiatric general surgery: Present: A&Ox3, appropriate, speech is normal, memory intact Exam Initial Vital Signs Temp Pulse Resp BP Pulse Ox 98.7 F 128 14 81/60 99 09/01/17 16:07 09/01/17 16:07 09/01/17 16:07 09/01/17 16:07 09/01/17 16:07 Results - Labs 09/02/17 01:10 09/02/17 01:10 Abnormal lab results WBC 2.6 K/mcL (4.3-11.1) L 09/02/17 01:10 RBC 3.73 M/mcL (3.82-4.97) L 09/02/17 01:10 Hgb 10.7 g/dL (11.5-15.4) L D 09/02/17 01:10 Hct 32.8 % (35.3-44.9) L 09/02/17 01:10 RDW 16.2 % (11.5-14.5) H 09/02/17 01:10 Plt Count 78 K/mcL (140-400) L 09/02/17 01:10 Immature Gran % 4.9 % (0-4) H 09/02/17 01:10 Neutrophils # 1.3 K/mcL (1.6-8.9) L 09/02/17 01:10 Lymphocytes # 0.3 K/mcL (0.6-4.6) L 09/02/17 01:10 Platelet Estimate Decreased (Normal) L 09/02/17 01:10 Anisocytosis 1+ (Not Present) A 09/01/17 16:28 PT 18.2 Seconds (9.4-12.1) H 09/01/17 16:28 Sodium 134 mEq/L (136-145) L 09/02/17 01:10 Chloride 109 mEq/L (98-107) H 09/02/17 01:10 Carbon Dioxide 19 mEq/L (23-29) L 09/02/17 01:10 BUN 28 mg/dL (8-23) H 09/02/17 01:10 Est GFR ( Amer) 59 (> 60) L 09/02/17 01:10 Est GFR (Non-Af Amer) 48 (> 60) L 09/02/17 01:10 Glucose 114 mg/dL (70-105) H 09/02/17 01:10 Calcium 7.7 mg/dL (8.6-10.3) L 09/02/17 01:10 Total Bilirubin 1.5 mg/dL (0.3-1.0) H 09/02/17 01:10 Direct Bilirubin 0.3 mg/dL (0.0-0.2) H 09/01/17 16:28 AST 8 Units/L (13-39) L 09/02/17 01:10 ALT 4 Units/L (7-52) L 09/02/17 01:10 Serum Total Protein 5.7 g/dL (6.4-8.9) L 09/02/17 01:10 Albumin 2.8 g/dL (3.5-5.7) L 09/02/17 01:10 Albumin/Globulin Ratio 1.0 (1.1-2.2) L 09/02/17 01:10 Lipase 6 Units/L (11-82) L 09/01/17 16:28 Diabetes panel 09/02/17 Range/Units 01:10 Sodium 134 L (136-145) mEq/L Potassium 3.8 (3.5-5.1) mEq/L Chloride 109 H (98-107) mEq/L Carbon Dioxide 19 L (23-29) mEq/L BUN 28 H (8-23) mg/dL Creatinine 1.13 (0.60-1.20) mg/dL Glucose 114 H (70-105) mg/dL Calcium 7.7 L (8.6-10.3) mg/dL AST 8 L (13-39) Units/L ALT 4 L (7-52) Units/L Alkaline Phosphatase 87 (34-104) Units/L Albumin 2.8 L (3.5-5.7) g/dL Calcium panel 09/02/17 Range/Units 01:10 Calcium 7.7 L (8.6-10.3) mg/dL Albumin 2.8 L (3.5-5.7) g/dL Pituitary panel 09/02/17 Range/Units 01:10 Sodium 134 L (136-145) mEq/L Potassium 3.8 (3.5-5.1) mEq/L Chloride 109 H (98-107) mEq/L Carbon Dioxide 19 L (23-29) mEq/L BUN 28 H (8-23) mg/dL Creatinine 1.13 (0.60-1.20) mg/dL Glucose 114 H (70-105) mg/dL Calcium 7.7 L (8.6-10.3) mg/dL Adrenal panel 09/02/17 Range/Units 01:10 Sodium 134 L (136-145) mEq/L Potassium 3.8 (3.5-5.1) mEq/L Chloride 109 H (98-107) mEq/L Carbon Dioxide 19 L (23-29) mEq/L BUN 28 H (8-23) mg/dL Creatinine 1.13 (0.60-1.20) mg/dL Glucose 114 H (70-105) mg/dL Calcium 7.7 L (8.6-10.3) mg/dL Total Bilirubin 1.5 H (0.3-1.0) mg/dL AST 8 L (13-39) Units/L ALT 4 L (7-52) Units/L Alkaline Phosphatase 87 (34-104) Units/L Albumin 2.8 L (3.5-5.7) g/dL All other labs normal. Consult Discharge Plan - Plan Referrals: Amaris Hamilton MD [Primary Care Provider] - <Gamal Baca - Last Filed: 09/03/17 15:02> Date of Encounter: 09/02/17 Review of Systems All systems PM: The remainder of the systems were reviewed and are negative General Surgery Exam Initial Vital Signs Temp Pulse Resp BP Pulse Ox 98.7 F 128 14 81/60 99 09/01/17 16:07 09/01/17 16:07 09/01/17 16:07 09/01/17 16:07 09/01/17 16:07 Exam Initial Vital Signs Temp Pulse Resp BP Pulse Ox 98.7 F 128 14 81/60 99 09/01/17 16:07 09/01/17 16:07 09/01/17 16:07 09/01/17 16:07 09/01/17 16:07 Results - Labs 09/03/17 06:36 09/03/17 06:36 Abnormal lab results WBC 1.7 K/mcL (4.3-11.1) L 09/03/17 06:36 RBC 3.30 M/mcL (3.82-4.97) L 09/03/17 06:36 Hgb 9.2 g/dL (11.5-15.4) L D 09/03/17 06:36 Hct 28.2 % (35.3-44.9) L 09/03/17 06:36 MCH 27.9 pg (28.0-33.3) L 09/03/17 06:36 RDW 16.8 % (11.5-14.5) H 09/03/17 06:36 Plt Count 84 K/mcL (140-400) L 09/03/17 06:36 Immature Gran % 4.9 % (0-4) H 09/02/17 01:10 Neutrophils # 1.1 K/mcL (1.6-8.9) L 09/03/17 06:36 Lymphocytes # 0.4 K/mcL (0.6-4.6) L 09/03/17 06:36 Platelet Estimate Decreased (Normal) L 09/03/17 06:36 Anisocytosis 1+ (Not Present) A 09/03/17 06:36 PT 18.2 Seconds (9.4-12.1) H 09/01/17 16:28 Sodium 132 mEq/L (136-145) L 09/03/17 06:36 Potassium 3.3 mEq/L (3.5-5.1) L 09/03/17 06:36 Chloride 109 mEq/L (98-107) H 09/03/17 06:36 Carbon Dioxide 16 mEq/L (23-29) L 09/03/17 06:36 Glucose 112 mg/dL (70-105) H 09/03/17 06:36 POC Glucose 116 mg/dL (70-99) H 09/03/17 10:56 Calculated Osmolality 277 (280-300) L 09/03/17 06:36 Calcium 8.0 mg/dL (8.6-10.3) L 09/03/17 06:36 Total Bilirubin 1.5 mg/dL (0.3-1.0) H 09/02/17 01:10 Direct Bilirubin 0.3 mg/dL (0.0-0.2) H 09/01/17 16:28 AST 8 Units/L (13-39) L 09/02/17 01:10 ALT 4 Units/L (7-52) L 09/02/17 01:10 Serum Total Protein 5.7 g/dL (6.4-8.9) L 09/02/17 01:10 Albumin 2.8 g/dL (3.5-5.7) L 09/02/17 01:10 Albumin/Globulin Ratio 1.0 (1.1-2.2) L 09/02/17 01:10 Lipase 6 Units/L (11-82) L 09/01/17 16:28 Diabetes panel 09/03/17 Range/Units 06:36 Sodium 132 L (136-145) mEq/L Potassium 3.3 L (3.5-5.1) mEq/L Chloride 109 H (98-107) mEq/L Carbon Dioxide 16 L (23-29) mEq/L BUN 19 (8-23) mg/dL Creatinine 0.85 (0.60-1.20) mg/dL Glucose 112 H (70-105) mg/dL Calcium 8.0 L (8.6-10.3) mg/dL Calcium panel 09/03/17 Range/Units 06:36 Calcium 8.0 L (8.6-10.3) mg/dL Pituitary panel 09/03/17 Range/Units 06:36 Sodium 132 L (136-145) mEq/L Potassium 3.3 L (3.5-5.1) mEq/L Chloride 109 H (98-107) mEq/L Carbon Dioxide 16 L (23-29) mEq/L BUN 19 (8-23) mg/dL Creatinine 0.85 (0.60-1.20) mg/dL Glucose 112 H (70-105) mg/dL Calcium 8.0 L (8.6-10.3) mg/dL Adrenal panel 09/03/17 Range/Units 06:36 Sodium 132 L (136-145) mEq/L Potassium 3.3 L (3.5-5.1) mEq/L Chloride 109 H (98-107) mEq/L Carbon Dioxide 16 L (23-29) mEq/L BUN 19 (8-23) mg/dL Creatinine 0.85 (0.60-1.20) mg/dL Glucose 112 H (70-105) mg/dL Calcium 8.0 L (8.6-10.3) mg/dL All other labs normal. - Attending Attestation I examined this patient and my medical decision-making was reviewed with the Resident Physician. I agree with the documented findings, disposition and treatment plan as described except to the extent set forth below. The patient is seen and evaluated with rest and on morning rounds. She has chronic anemia and will require upper and lower endoscopy as part of the workup for gastrointestinal blood loss. We will perform colonoscopy bowel prep today and plan EGD colonoscopy tomorrow Gamal Baca MD FACS
--- NOTE | 2017-09-02 14:22 | Internal Med Progress Note ---
Date of Encounter: 09/02/17 Time of Encounter: 12:30 - Assessment and plan (1) Anemia Current Visit: Yes Status: Acute Assessment and plan: Plan is to rule out GI bleeding with endoscopy and colonoscopy tomorrow. If this is a negative and does not show etiology of anemia, Hem/Onc is considering bone marrow biopsy. (2) Hypotension Current Visit: Yes Status: Acute Assessment and plan: Possibly related to poor enteral nutrition, rule out hypovolemia from bleeding Qualifiers: Hypotension type: unspecified hypotension type Qualified Code(s): I95.9 - Hypotension, unspecified (3) Leukocytopenia Current Visit: Yes Status: Acute Assessment and plan: Unclear etiology, pending workup Qualifiers: Leukopenia type: unspecified Qualified Code(s): D72.819 - Decreased white blood cell count, unspecified (4) Occult GI bleeding Current Visit: Yes Status: Suspected (5) Thrombocytopenia Current Visit: Yes Status: Acute (6) Weight loss Current Visit: No Status: Chronic Assessment and plan: Rule out underlying undiagnosed malignancy - Time Spent With Patient Total time spent is greater than 50% in coordination of care (as documented) at patient's floor/unit and/or counseling patient: 25 - 35 minutes - Subjective Interval history: Patient is getting GoLYTELY in order to prepare for colonoscopy. Having multiple bowel movements. Does not report any melena or hematemesis. - Constitutional Vitals: Temp Pulse Resp BP Pulse Ox 98.9 F 98 17 116/61 100 09/02/17 10:50 09/02/17 10:50 09/02/17 10:50 09/02/17 10:50 09/02/17 10:50 General appearance: Present: A&O X 3 Exam: Physical exam Gen: Comfortable, laying in bed, in no visible distress HEENT: Normocephalic, atraumatic. No conjunctival icterus. Moist oral mucosa. Neck: Supple Lungs: Clear to auscultation, no foreign sounds Heart: Normal S1-S2, no murmurs rubs or gallops Abdomen: Normoactive bowel sounds, no guarding rigidity or tenderness Extremities: No edema clubbing or cyanosis Neuro: Alert oriented 3, no focal deficits Skin: No skin lesions, pallor noted Internal Medicine: Result - Labs CBC & Chem 7: 09/02/17 01:10 09/02/17 01:10 Labs: Short CBC 04/29/18 Range/Units 01:10 WBC 2.6 L (4.3-11.1) K/mcL Hgb 10.7 L D (11.5-15.4) g/dL Hct 32.8 L (35.3-44.9) % Plt Count 78 L (140-400) K/mcL Neutrophils # 1.3 L (1.6-8.9) K/mcL BMP 09/02/17 01:10 Sodium 134 L Potassium 3.8 Chloride 109 H Carbon Dioxide 19 L BUN 28 H Creatinine 1.13 Glucose 114 H Calcium 7.7 L Liver Function 09/02/17 Range/Units 01:10 Total Bilirubin 1.5 H (0.3-1.0) mg/dL AST 8 L (13-39) Units/L ALT 4 L (7-52) Units/L Alkaline Phosphatase 87 (34-104) Units/L Albumin 2.8 L (3.5-5.7) g/dL - ABG Interpretation ABG results: PT/INR, D-dimer PT 18.2 Seconds (9.4-12.1) H 09/01/17 16:28 - VTE Documentation of Mechanical Device: Intermittent pneumatic compression device Consult Discharge Plan - Plan Referrals: Amaris Hamilton MD [Primary Care Provider] -
[2017-09-02] MEDS: traZODone 50 MG TABLET PO SCH (20:04)
[2017-09-02] MEDS ORDERED: Acetaminophen 325 MG TABLET PO PRN (21:10)
[2017-09-02] MEDS ORDERED: Acetaminophen 650 MG RECTAL SUPP RC PRN (21:10)
[2017-09-02] MEDS ORDERED: Ondansetron 4 MG/2 ML VIAL IVP SCH (21:30)
[2017-09-02] MEDS ORDERED: Ondansetron 4 MG/2 ML VIAL IVP PRN (21:32)
[2017-09-03] MEDS: Levothyroxine 25 MCG TABLET PO SCH (05:34)
[2017-09-03] MEDS: Pantoprazole 40 MG VIAL IVP SCH ×2 (05:34→15:40)
[2017-09-03 07:03] LABS: Mean Platelet Volume 11.7 fL (9.4-12.4)
[2017-09-03 07:04] LABS: Hematocrit 28.2 % (35.3-44.9); Hemoglobin 9.2 g/dL (11.5-15.4); Mean Corpuscular HGB Conc 32.6 g/dL (31.6-35.5); Mean Corpuscular Hemoglobin 27.9 pg (28.0-33.3); Mean Corpuscular Volume 85.5 fL (83.0-100.0); Red Cell Distribution Width 16.8 % (11.5-14.5)
[2017-09-03 07:17] LABS: Platelet Count 84 K/mcL (140-400)
[2017-09-03 07:18] LABS: BUN/Creatinine Ratio 22 (6-26); Blood Urea Nitrogen 19 mg/dL (8-23); Carbon Dioxide 16 mEq/L (23-29); Chloride 109 mEq/L (98-107); Glucose 112 mg/dL (70-105); Osmolality,Calculated 277 (280-300); Potassium 3.3 mEq/L (3.5-5.1); Sodium 132 mEq/L (136-145); eGFR For African Americans > 60 (> 60); eGFR For Non-African Americans > 60 (> 60)
[2017-09-03 08:03] LABS: Lymphocytes # 0.4 K/mcL (0.6-4.6); Monocytes # 0.2 K/mcL (0.0-1.3); Neutrophils # 1.1 K/mcL (1.6-8.9)
[2017-09-03 08:04] LABS: Platelet Estimate Decreased (Normal)
[2017-09-03 08:05] LABS: Anisocytosis 1+ (Not Present)
[2017-09-03] MEDS ORDERED: *HR* FentaNYL (PF) 100 MCG/2 ML VIAL IVP ONE (08:13)
[2017-09-03] MEDS ORDERED: Simethicone 40 MG/0.6 ML MLS IR ONE (08:13)
[2017-09-03] MEDS ORDERED: *HR* Midazolam HCl 2 MG/2 ML VIAL IVP ONE (08:13)
--- NOTE | 2017-09-03 08:15 | Pre-Sedation Evaluation ---
Pre-sedation evaluation - Pre-sedation checklist Date of procedure: 09/03/17 Procedure: EGD/ colonoscopy Recent Vitals: Last Vital Signs Temp 98.7 F 09/03/17 06:28 Pulse 109 09/03/17 06:28 Resp 17 09/03/17 06:28 BP 112/69 09/03/17 06:28 Pulse Ox 99 09/03/17 06:28 H&P (including ROS) documented in medical record: Yes Previous reaction to sedatives/anesthetics: Unknown Dietary Status: NPO after Midnight Airway Assessment: Patient can open mouth completely, TMJ function normal Dentition: dentures removed ASA Classification *see protocol: CLASS III-Severe systemic disease Plan of Care: Pt appropriate candidate for procedure/moderate/conscious sedation , Risks/benefits of procedure/sedation discussed w/ patient/family
[2017-09-03] MEDS ORDERED: Acetaminophen 325 MG TABLET PO PRN (08:43)
[2017-09-03] MEDS ORDERED: *HR* HYDROcodone/Acet 5/325 mg TABLET PO PRN (08:44)
[2017-09-03] MEDS: *HR* Midazolam HCl 5 MG/5 ML VIAL IVP ONE ×3 (09:25→09:48)
[2017-09-03] MEDS ORDERED: *HR* FentaNYL (PF) 100 MCG/2 ML VIAL ONE (09:53)
--- NOTE | 2017-09-03 10:17 | Internal Med Progress Note ---
Date of Encounter: 09/03/17 - Assessment and plan (1) Anemia Current Visit: Yes Status: Acute (2) Hypotension Current Visit: Yes Status: Acute Qualifiers: Hypotension type: unspecified hypotension type Qualified Code(s): I95.9 - Hypotension, unspecified (3) Leukocytopenia Current Visit: Yes Status: Acute Qualifiers: Leukopenia type: unspecified Qualified Code(s): D72.819 - Decreased white blood cell count, unspecified (4) Occult GI bleeding Current Visit: Yes Status: Suspected (5) Thrombocytopenia Current Visit: Yes Status: Acute (6) Weight loss Current Visit: No Status: Chronic - Time Spent With Patient Total time spent is greater than 50% in coordination of care (as documented) at patient's floor/unit and/or counseling patient: - Subjective Interval history: Patient is getting GoLYTELY in order to prepare for colonoscopy. Having multiple bowel movements. Does not report any melena or hematemesis. - Constitutional Vitals: Temp Pulse Resp BP Pulse Ox 99.9 F H 122 16 109/61 99 09/03/17 09:10 09/03/17 10:15 09/03/17 10:15 09/03/17 10:15 09/03/17 10:15 General appearance: Present: A&O X 3 Internal Medicine: Result - Labs CBC & Chem 7: 09/03/17 06:36 09/03/17 06:36 Labs: Short CBC 09/03/17 Range/Units 06:36 WBC 1.7 L (4.3-11.1) K/mcL Hgb 9.2 L D (11.5-15.4) g/dL Hct 28.2 L (35.3-44.9) % Plt Count 84 L (140-400) K/mcL Neutrophils # 1.1 L (1.6-8.9) K/mcL BMP 09/03/17 06:36 Sodium 132 L Potassium 3.3 L Chloride 109 H Carbon Dioxide 16 L BUN 19 Creatinine 0.85 Glucose 112 H Calcium 8.0 L - ABG Interpretation ABG results: PT/INR, D-dimer PT 18.2 Seconds (9.4-12.1) H 09/01/17 16:28 - VTE Documentation of Mechanical Device: Intermittent pneumatic compression device Consult Discharge Plan - Plan Referrals: Amaris Hamilton MD [Primary Care Provider] -
--- NOTE | 2017-09-03 10:35 | Event Note ---
Date of Encounter: 09/03/17 Time of Encounter: 06:50 Pt seen and examined by me this morning. Heart RRR, Lungs CTAB, Abd SNT, +BS. Patient had colonoscopy and EGD this morning. See report for full details. Patient had diverticulosis on colonoscopy and had some irregularity at the Z line. No active bleeding in colon or on EGD. Patient is clear from a surgical perspective for discharge.
[2017-09-03] MEDS: 0.9 % Sodium Chloride 1,000 ML IVC SCH (11:07)
[2017-09-03] MEDS ORDERED: Potassium Chloride 40 MEQ, Lidocaine 1% 2 ML in D5% in Water 500 ML IVPB ONE (12:35)
[2017-09-03] MEDS ORDERED: *HR* Metoprolol 5 MG/5 ML VIAL IVP ONE (15:21)
--- NOTE | 2017-09-03 15:44 | Internal Med Progress Note ---
Date of Encounter: 09/03/17 Time of Encounter: 14:00 - Assessment and plan (1) Anemia Current Visit: Yes Status: Acute Assessment and plan: Endoscopy did not reveal ongoing bleeding but was suggestive of diverticulosis. Hematology consult is pending. There is a plan for bone marrow biopsy on September 05. (2) Hypotension Current Visit: Yes Status: Resolved Assessment and plan: Resolved Qualifiers: Hypotension type: unspecified hypotension type Qualified Code(s): I95.9 - Hypotension, unspecified (3) Leukocytopenia Current Visit: Yes Status: Acute Assessment and plan: Unclear etiology, pending workup Qualifiers: Leukopenia type: unspecified Qualified Code(s): D72.819 - Decreased white blood cell count, unspecified (4) Occult GI bleeding Current Visit: Yes Status: Suspected (5) Thrombocytopenia Current Visit: Yes Status: Acute (6) Weight loss Current Visit: No Status: Chronic (7) Supraventricular arrhythmia Current Visit: Yes Status: Acute Assessment and plan: Lopressor IV now. Resume beta venancio. - Time Spent With Patient Total time spent is greater than 50% in coordination of care (as documented) at patient's floor/unit and/or counseling patient: 25 - 35 minutes - Subjective Interval history: Returned from endoscopy. Patient to be tachycardic up to 130 with supra- ventricular tachycardia. - Constitutional Vitals: Temp Pulse Resp BP Pulse Ox 102.7 F H 136 18 126/72 98 09/03/17 15:32 09/03/17 15:32 09/03/17 15:32 09/03/17 15:32 09/03/17 15:32 General appearance: Present: A&O X 3 Exam: Physical exam Gen: Comfortable, laying in bed, in no visible distress HEENT: Normocephalic, atraumatic. No conjunctival icterus. Moist oral mucosa. Neck: Supple Lungs: Clear to auscultation, no foreign sounds Heart: Normal S1-S2, no murmurs rubs or gallops, tachycardia Abdomen: Normoactive bowel sounds, no guarding rigidity or tenderness Extremities: No edema clubbing or cyanosis Neuro: Alert oriented 3, no focal deficits Skin: No skin lesions Internal Medicine: Result - Labs CBC & Chem 7: 09/03/17 06:36 09/03/17 06:36 Labs: Short CBC 09/03/17 Range/Units 06:36 WBC 1.7 L (4.3-11.1) K/mcL Hgb 9.2 L D (11.5-15.4) g/dL Hct 28.2 L (35.3-44.9) % Plt Count 84 L (140-400) K/mcL Neutrophils # 1.1 L (1.6-8.9) K/mcL BMP 09/03/17 06:36 Sodium 132 L Potassium 3.3 L Chloride 109 H Carbon Dioxide 16 L BUN 19 Creatinine 0.85 Glucose 112 H Calcium 8.0 L - ABG Interpretation ABG results: PT/INR, D-dimer PT 18.2 Seconds (9.4-12.1) H 09/01/17 16:28 - VTE Documentation of Mechanical Device: Intermittent pneumatic compression device Consult Discharge Plan - Plan Referrals: Amaris Hamilton MD [Primary Care Provider] -
[2017-09-03] MEDS ORDERED: ALPRAZolam 0.5 MG TABLET PO PRN (15:46)
--- NOTE | 2017-09-03 18:44 | Electrocardiograph Report ---
[place] [employer] 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
[2017-09-03] MEDS: traZODone 50 MG TABLET PO SCH (21:55)
[2017-09-04 05:43] LABS: Basophils % 0.5 %
[2017-09-04 05:45] LABS: Hematocrit 30.9 % (35.3-44.9); Immature Granulocytes % 4.8 % (0-4); Lymphocytes # 0.3 K/mcL (0.6-4.6); Lymphocytes % 14.5 %; Mean Corpuscular HGB Conc 32.4 g/dL (31.6-35.5); Mean Corpuscular Hemoglobin 28.1 pg (28.0-33.3); Mean Corpuscular Volume 86.8 fL (83.0-100.0); Mean Platelet Volume 11.8 fL (9.4-12.4); Monocytes # 0.5 K/mcL (0.0-1.3); Monocytes % 25.3 %; Red Blood Count 3.56 M/mcL (3.82-4.97); Red Cell Distribution Width 16.7 % (11.5-14.5); Segmented Neutrophils % 54.9 %
[2017-09-04] MEDS: Levothyroxine 25 MCG TABLET PO SCH (05:47)
[2017-09-04] MEDS: Pantoprazole 40 MG VIAL IVP SCH (05:47)
[2017-09-04 06:38] LABS: Platelet Count 91 K/mcL (140-400)
[2017-09-04 06:39] LABS: Platelet Estimate Decreased (Normal)
[2017-09-04] MEDS ORDERED: Psyllium 1 PACKET POWD.PACK PO SCH (09:00)
--- NOTE | 2017-09-04 10:32 | General Surgery Progress Note ---
<Fuentes Guerra - Last Filed: 09/04/17 10:30> Date of Encounter: 09/04/17 Time of Encounter: 10:31 - Assessment and Plan (1) Occult GI bleeding Status: Suspected Stool occult positve. Patient hx of chronic anemia and pancytopenia where patient intermittently becomes symptomatic requiring transfusion. Hgb currently stable patient had colonoscopy and EGD this morning. See report for full details. Patient had diverticulosis on colonoscopy and had some irregularity at the Z line. No active bleeding in colon or on EGD. Patient is clear from a surgical perspective for discharge. plan: Surgery will sign off. (2) Anemia Status: Acute See plan above. Qualifiers: Anemia type: unspecified type Qualified Code(s): D64.9 - Anemia, unspecified (3) Pancytopenia Status: Chronic Pt follows with Dr. Prescott Pt scheduled for bone marrow biopsy tomorrow management per primary team. Subjective Patient reports: no new complaints, voiding w/o difficulty, diarrhea, afebrile Objective Vital Signs - Last 8 Hours Temp Pulse Resp BP Pulse Ox 09/04/17 07:34 97.3 F L 106 15 134/65 99 09/04/17 04:16 99.8 F H 93 16 106/63 99 Intake and Output 09/03/17 09/04/17 09/04/17 23:59 07:59 15:59 Intake Total 240 / 240 Balance 240 / 240 Intake: Oral 240 / 240 Other: Meal Breakfast Percent of Meal Consumed 20% # Voids 2 Weight 71.1 kg Patient Weight 09/04/17 23:59 Weight 71.1 kg - General physical appearance well developed, well nourished, no distress - Eyes normal ocular movement - ENT normal mucosa - Neck Neck exam: trachea midline - Respiratory normal expansion, normal respiratory effort, clear to auscultation - Cardiovascular Cardiovascular exam: Present: RRR, no murmurs/rubs/gallops - Abdomen Abdomen: Present: bowel sounds present, soft, non tender - Integumentary no abnormal pigmentation - Neurologic CN 2-12 grossly intact - Musculoskeletal normal posture - Psychiatric oriented to time, oriented to person, oriented to place, speech is normal, memory intact - Labs 09/04/17 04:42 09/03/17 06:36 - VTE Documentation of Mechanical Device: Intermittent pneumatic compression device Consult Discharge Plan - Plan Instructions: Anemia (GEN) Referrals: Amaris Hamilton MD [Primary Care Provider] - 09/07/17 1:45 pm (Please follow up as schedule...) <Gamal Baca - Last Filed: 09/04/17 16:09> Date of Encounter: 09/04/17 Objective Vital Signs - Last 8 Hours Temp Pulse Resp BP Pulse Ox 09/04/17 11:36 99.1 F 99 15 133/75 99 Intake and Output 09/04/17 09/04/17 09/04/17 07:59 15:59 23:59 Intake Total 260 / 260 Balance 260 / 260 Intake: Oral 260 / 260 Other: Meal Lunch Percent of Meal Consumed 0% # Voids 2 Weight 71.1 kg Patient Weight 09/04/17 23:59 Weight 71.1 kg - Labs 09/04/17 04:42 09/03/17 06:36 - Attending Attestation I examined this patient and my medical decision-making was reviewed with the Resident Physician. I agree with the documented findings, disposition and treatment plan as described except to the extent set forth below. The patient is seen and evaluated with rest and on morning rounds. EGD and colonoscopy findings are detailed in the endoscopy reports. There was no active bleeding. We will sign off Gamal Baca MD FACS
[2017-09-04 11:37] VITALS: BP 133/75
--- NOTE | 2017-09-04 12:18 | Oncology Inp Consult Note ---
Date of Encounter: 09/04/17 Time of Encounter: 12:18 Assessment and Plan (1) Pancytopenia Status: Chronic Assessment and plan: Pancytopenia with neutropenia, improving and stable s/p PRBC transfusions. Patient planned for discharge home today per primary team. Will keep already scheduled outpatient bone marrow biopsy and aspiration appointment tomorrow with IR-appointment verified. Patient understands she is to be NPO after MN. She has been arranged for follow up with Dr. Prescott next week to discuss bone marrow pathology results. Endoscopies did not reveal stigmata of bleeding or pathological findings to explain anemia. Bone marrow pathology or myelodysplastic syndrome is of concern. Plan as above discussed with Dr. Schilling. Discussed plan with patient and patients today at bedside, verbalized understanding. Of note- Transvaginal pelvic US in July did reveal a 2.2 x 1.7 x 2.0 cm hyperechoic rounded lesion in the inferior right uterine body. MRI with contrast was recommended for further assessment. Correlation unclear, would defer to Dr. Prescott for continued workup if needed on outpatient basis. Patient denies abdominal pain or vaginal bleeding. (2) Weight loss Status: Chronic Assessment and plan: Will make referral to outpatient trim operator for continued follow up. - Data of Consult Patient: known to practice within the last 3 years Consult date: 09/04/17 Requesting Physician: Ruthie Hood MD Primary Care Provider: Amaris Hamilton - Consult Narrative Reason for consult: Pancytopenia History of present illness: Ms. Burnett is a 67 year old female under current hematological workup for pancytopenia with possible bone marrow pathology, lymphoproliferative disorder or mild dysplastic syndrome. Ms. Burnett does have mild splenomegaly and borderline lymphadenopathy. She had previously declined GI consultation. At her most recent visit she had agreed to bone marrow biopsy and aspiration which was already arranged for tomorrow as an outpatient procedure. She was admitted on 09/01/2017 with report of progressive weakness, fatigue and SOB. She was found to be anemic s/p blood transfusion about 2 weeks prior, hypotensive and tachycardic. GI was consulted on admission. EGD revealed hiatal hernia and irregular Z-line, pathology pending. Colonoscopy revealed diverticulosis. She has received 3 units PRBC with hgb 7.1 today. Of note, she does report decreased appetite, 60 pound weight loss over the past 6 months. She has experienced progressive weakness, she lives at home with her who helps her with 24 hour care. She is able to ambulate small distances throughout her house but takes multiple breaks due to weakness and SOB. Past Med Surg Social Fam HX - Past Medical History Medical history: hyperlipidemia, hypertension, myocardial infarction, other Psychiatric history: no psych history - Past Surgical History Surgical History: no surgical history - Social History Smoking Status: Current every day smoker Packs per day: 1 Smokeless Tobacco Status: No Alcohol use: none Drug use: none - Family History Mother Living Status: Hx Family Cancer: Yes Medications and Allergies ALPRAZolam [Xanax 0.5 MG Tablet] 0.5 mg PO BID PRN 07/27/17 [History] Atenolol [Tenormin] 50 mg PO DAILY 07/27/17 [History] Cyanocobalamin (B-12) [Vitamin B12] 1,000 mcg IM Q2W 07/27/17 [History] Diclofenac Sodium [Voltaren] 1 appl TP QID PRN 07/27/17 [History] HYDROcodone/Acet 5/325 mg [[place] 5-325 mg] 1 tab PO TID PRN 07/27/17 [History] Nitroglycerin [Nitrostat] 0.4 mg SL Q5M PRN 07/27/17 [History] Ondansetron HCl [Zofran] 4 - 8 mg PO TID PRN 07/27/17 [History] Potassium Chloride [K-Tab ER] 20 meq PO BID 07/27/17 [History] Pravastatin Sodium [Pravachol] 20 mg PO HS 07/27/17 [History] Trazodone HCl 100 mg PO HS 07/27/17 [History] Levothyroxine [Synthroid] 25 mcg PO 0630 08/21/17 [History] [place]-3 Fatty Acids [Fish Oil Concentrate] 2,000 mg PO BID 08/21/17 [History] 3 Allergy/AdvReac Type Severity Reaction Status Date / Time No Known Allergies Allergy Verified 09/02/17 11:03 Constitutional: Present: anorexia, fatigue, weakness, weight loss. Absent: chills, fever(s), night sweats Eyes: Absent: change in vision Nose, mouth and throat: Absent: dysphagia Cardiovascular: Absent: chest pain, irregular heart rhythm Respiratory: Present: dyspnea. Absent: cough Gastrointestinal: Absent: abdominal pain, change in bowel habits, hematemesis, hematochezia, melena, nausea, vomiting Genitourinary: Absent: dysuria Musculoskeletal: Absent: numbness, tingling Integumentary: Absent: wounds Neurological: Absent: focal weakness, frequent falls (history of falls although none recently per patient) Psychiatric: Present: change in appetite Hematologic/Lymphatic: Present: as per HPI Oncology - Exam - Constitutional Vitals: Temp Pulse Resp BP Pulse Ox 99.1 F 99 15 133/75 99 09/04/17 11:36 09/04/17 11:36 09/04/17 11:36 09/04/17 11:36 09/04/17 11:36 General appearance: cooperative, no acute distress, no febrile Exam: chronically ill appearing - Head Head exam: Present: atraumatic - ENT ENT exam: Present: mucous membranes moist - Respiratory Respiratory exam: Present: decreased breath sounds. Absent: respiratory distress - Cardiovascular Cardiovascular exam: Present: RRR, +S1, +S2 - GI/Abdominal GI/Abdominal exam: Present: hypoactive bowel sounds, soft. Absent: tenderness - Extremities Exam Extremities exam: Present: normal inspection. Absent: calf tenderness - Neurological Exam Neurological exam: Present: alert, oriented X3, no focal deficits, strengths equal and symetr throughout - Psychiatric Psychiatric exam: Present: normal affect, normal mood - Skin Skin exam: Present: dry, intact, normal color, warm Oncology - Results Labs: Short CBC 09/04/17 Range/Units 04:42 WBC 1.9 L (4.3-11.1) K/mcL Hgb 10.0 L (11.5-15.4) g/dL Hct 30.9 L (35.3-44.9) % Plt Count 91 L (140-400) K/mcL Neutrophils # 1.0 L (1.6-8.9) K/mcL Consult Discharge Plan - Plan Instructions: Anemia (GEN) Referrals: Amaris Hamilton MD [Primary Care Provider] - 09/07/17 1:45 pm (Please follow up as schedule...)
--- NOTE | 2017-09-04 13:18 | Discharge Summary ---
Orders not resulted at time of discharge: Pending orders 09/02/17 21:46 Culture,Blood [BC] Stat Culture,Blood,Additional [BC] Stat 09/03/17 10:18 Surgical Pathology [PTH] Routine Date of Encounter: 09/04/17 Time of Encounter: 13:09 - Discharge Diagnosis (1) Anemia Priority: Primary Status: Chronic Qualifiers: Anemia type: unspecified type Qualified Code(s): D64.9 - Anemia, unspecified (2) Pancytopenia Priority: Secondary Status: Chronic (3) Weight loss Priority: Secondary Status: Chronic (4) Hypotension Priority: Secondary Status: Resolved Qualifiers: Hypotension type: unspecified hypotension type Qualified Code(s): I95.9 - Hypotension, unspecified (5) Occult GI bleeding Priority: Primary Status: Acute (6) Supraventricular arrhythmia Priority: Secondary Status: Chronic Hospital course: Ms. Burnett is a 67 year old female with history of hypertension, hyperlipidemia , UT and pericarditis approximately 20 years ago, and anemia who presents to the ED with severe weakness and fatigue with been going on for some time. She is a patient of Dr. Prescott, and she has been worked up recently for pancytopenia with severe anemia. She says this has been going on for approximately 8 months , and she has had periods of progressive weakness which have required blood transfusions in the past. Most recently she did have a transfusion of 2 packed red blood cell units approximately 2 weeks ago. She also has had some falls but there are several months back. She was scheduled to have a bone marrow biopsy about one week for further evaluation of this pancytopenia, however she was not able to wait until that time. She does say that she had some issues with constipation and diarrhea last night with minimal vomiting however she denies any melena, hematochezia, hematemesis. She has had no cough, fever, chills, sweats. She otherwise has no acute complaints. Patient was admitted for anemia workup, her stool occult blood was positive. GI was consulted. She had to upper and lower endoscopy did not not to reveal active bleeding. Surgeon is okay to discharge. I spoke to it program engagement director they will follow up as outpatient she is scheduled to have bone bone marrow biopsy tomorrow (1) Anemia Current Visit: Yes Status: Acute Assessment and plan: Endoscopy did not reveal ongoing bleeding but was suggestive of diverticulosis. Hematology consult is pending. There is a plan for bone marrow biopsy on September 05. (2) Hypotension Current Visit: Yes Status: Resolved Assessment and plan: Resolved Qualifiers: Hypotension type: unspecified hypotension type Qualified Code(s): I95.9 - Hypotension, unspecified (3) Leukocytopenia Current Visit: Yes Status: Acute Assessment and plan: Unclear etiology, pending workup Qualifiers: Leukopenia type: unspecified Qualified Code(s): D72.819 - Decreased white blood cell count, unspecified (4) Occult GI bleeding Current Visit: Yes Status: Suspected (5) Thrombocytopenia Current Visit: Yes Status: Acute (6) Weight loss Current Visit: No Status: Chronic (7) Supraventricular arrhythmia Current Visit: Yes Status: Acute Assessment and plan: Lopressor IV now. Resume beta venancio. Discharge discussed with: patient - Time Spent with Patient Total time spent providing and/or coordinating discharge services: Greater than 30 minutes - Discharge Medications Home Medications: ALPRAZolam [Xanax 0.5 MG Tablet] 0.5 mg PO BID PRN 07/27/17 [History] Atenolol [Tenormin] 50 mg PO DAILY 07/27/17 [History] Cyanocobalamin (B-12) [Vitamin B12] 1,000 mcg IM Q2W 07/27/17 [History] Diclofenac Sodium [Voltaren] 1 appl TP QID PRN 07/27/17 [History] HYDROcodone/Acet 5/325 mg [[place] 5-325 mg] 1 tab PO TID PRN 07/27/17 [History] Nitroglycerin [Nitrostat] 0.4 mg SL Q5M PRN 07/27/17 [History] Ondansetron HCl [Zofran] 4 - 8 mg PO TID PRN 07/27/17 [History] Potassium Chloride [K-Tab ER] 20 meq PO BID 07/27/17 [History] Pravastatin Sodium [Pravachol] 20 mg PO HS 07/27/17 [History] Trazodone HCl 100 mg PO HS 07/27/17 [History] Levothyroxine [Synthroid] 25 mcg PO 0630 08/21/17 [History] [place]-3 Fatty Acids [Fish Oil Concentrate] 2,000 mg PO BID 08/21/17 [History] Allergies/Adverse Reactions: 3 Allergy/AdvReac Type Severity Reaction Status Date / Time No Known Allergies Allergy Verified 09/02/17 11:03 Date of admission: 09/01/17 19:43 Primary care physician: Amaris Hamilton Consults: 09/01/17 20:22 Consult to Surgery [CONS] Routine Consulting Provider: Garfield [facility] Reason for Consult: GI Bleed Time Notified: 20:22 Call Completed: Yes 09/01/17 20:27 Consult to Physical Therapy [CONS] Routine Comment: Evaluate, develop and implement POC Reason for Consult: Weakness Does patient have active BEDREST order?: No Is patient medically & hemodynamically stable?: Yes OT [Consult to Occupational Therapy] [CONS] Routine Comment: Evaluate, develop and implement POC Reason for Consult: Weakness Does patient have active BEDREST order?: No Is patient medically & hemodynamically stable?: Yes 09/04/17 12:03 Consult to Oncology Hematology [CONS] Routine Consulting Provider: Fabiola Macario Reason for Consult: PANCYTOPENIA Time Notified: 12:04 Call Completed: Yes - Constitutional Vitals: Temp Pulse Resp BP Pulse Ox 99.1 F 99 15 133/75 99 09/04/17 11:36 09/04/17 11:36 09/04/17 11:36 09/04/17 11:36 09/04/17 11:36 General appearance: Present: A&O X 3 Exam: CONSTITUTIONAL: patient appears as an age appropriate female in no acute distress. EYES Clear sclerae, bilateral pupils are equal, reactive to light. EMOI. RESPIRATORY: No accessory muscle use, bilateral clear to auscultation, no wheezing, no crackles/rales. CARDIOVASCULAR: Regular heart rate, normal S1 and S2, no murmurs GASTROINTESTINAL: bowel sounds present, soft, no tenderness. MUSCULOSKELETAL: Joints in normal range of motion, no clubbing, no edema, no cyanosis. Bilateral peripheral pulses 2+. NEUROLOGIC: CN II to XII are grossly intact, no focal neurological deficit. - Patient Status Disposition: Home, Self-Care Condition: Good Overall status at discharge: patient is back to baseline - Discharge Instructions Follow Up With: Amaris Hamilton MD [Primary Care Provider] - - Diet and Activity Diet: advance to your usual diet - VTE Documentation of Mechanical Device: Intermittent pneumatic compression device
--- NOTE | 2017-09-04 16:12 | Electrocardiograph Report ---
[address] [place] [address] Test Date: 2017-09-03 Pat Name: Telma Burnett Department: 112 Room: 2A71 Gender: F Paper Control Clerk: : 1950 Requested By: Luisa Cervantes Order Number: [id number] Reading MD: Nate Alcala Measurements Intervals [place] Rate: 123 P: MT: 0 QRS: 4 QRSD: 85 T: 49 QT: 282 QTc: 355 Interpretive Statements SINUS TACHYCARDIA ANTEROSEPTAL MYOCARDIAL INFARCTION, OF INDETERMINATE AGE Electronically Signed On 09-04-2017 16:10:49 EDT by Nate Alcala
== END 2017-09-04 14:18 | disposition home or self-care (01) | DRG 809 ==
LOC: EMEROO 15:58 → 2ANU 15:58 → SUATTDRO 19:43 → 2ANU 20:24
PROVIDERS: ADMIT Nurse Practitioner Family; ATTEND Hospitalist
PROC: ENDOEBX (2017-09-03 09:30)

== ENCOUNTER 2017-09-10 16:22 | Inpatient (IN) ==
[2017-09-10] MEDS ORDERED: 0.9 % Sodium Chloride 1,000 ML IVC ONE (17:05)
--- NOTE | 2017-09-10 17:38 | Emergency Department Note ---
Disposition Clinical Impression: Hypotension, Anemia, Acute anemia Disposition: Admitted As Inpatient Condition: Fair Referrals: Amaris Hamilton MD [Primary Care Provider] - Forms: ED Satisfaction Letter Time of Disposition: 18:50 General Adult HPI - General Chief complaint: ED Weakness Stated complaint: SOB/Weakness Time Seen by Provider: 09/10/17 16:59 Source: patient Limitations: no limitations Nursing Notes Reviewed: Yes Vital Signs Reviewed: Yes - History of Present Illness HPI Narrative: Patient presents to the ED with low blood pressure from her PCPs office. Pain all over. Accompanied by her . He provides most of the history. Patient was briefly seen and admitted for the same presentation. She had upper and lower scopes done which did not show a source of bleeding to account for her anemia. She is scheduled for a bone marrow biopsy tomorrow. She denies fever or cough. He states she has not been eating or drinking Pain Scale: 10 - Related Data Home Medications Medication Instructions Recorded Confirmed ALPRAZolam [Xanax 0.5 MG Tablet] 0.5 mg PO BID PRN 07/27/17 09/01/17 Atenolol [Tenormin] 50 mg PO DAILY 07/27/17 09/01/17 Cyanocobalamin (B-12) [Vitamin B12] 1,000 mcg IM Q2W 07/27/17 09/01/17 Diclofenac Sodium [Voltaren] 1 appl TP QID PRN 07/27/17 09/01/17 HYDROcodone/Acet 5/325 mg [[place] 1 tab PO TID PRN 07/27/17 09/01/17 5-325 mg] Nitroglycerin [Nitrostat] 0.4 mg SL Q5M PRN 07/27/17 09/01/17 Ondansetron HCl [Zofran] 4 - 8 mg PO TID PRN 07/27/17 09/01/17 Potassium Chloride [K-Tab ER] 20 meq PO BID 07/27/17 09/01/17 Pravastatin Sodium [Pravachol] 20 mg PO HS 07/27/17 09/01/17 Trazodone HCl 100 mg PO HS 07/27/17 09/01/17 Levothyroxine [Synthroid] 25 mcg PO 0630 08/21/17 09/01/17 [place]-3 Fatty Acids [Fish Oil 2,000 mg PO BID 08/21/17 09/01/17 Concentrate] Allergies Allergy/AdvReac Type Severity Reaction Status Date / Time No Known Allergies Allergy Verified 09/02/17 11:03 All systems ED: reviewed and negative except as stated. Constitutional: Denies: fever Cardiovascular: Reports: chest pain Respiratory: Reports: dyspnea Gastrointestinal: Reports: abdominal pain. Denies: vomiting, diarrhea Musculoskeletal: Denies: back pain Neurological: Denies: headache Past Medical History - Past Medical History Attestation: Yes The following information was validated with the patient. Source: patient, obtained from family Medical history: Reports: hyperlipidemia, hypertension, myocardial infarction, other Surgical history: Reports: no surgical history Psychiatric history: Reports: no psych history SURGEON/PRESIDENT history: Reports: no SURGEON/PRESIDENT history - Social History Smoking Status: Current every day smoker Smokeless Tobacco Status: No Alcohol use: Reports: none Drug use: Reports: none Physical Exam Patient awake alert. Lethargic. Pale. Moaning stating everything hurts. - General Limitations: no limitations General appearance: alert, in no apparent distress - Head Head exam: atraumatic, normocephalic - Eye Eye exam: Present: other (Conjunctiva pale) - ENT ENT exam: normal exam - Neck Neck exam: Present: normal inspection - Chest Chest inspection: Present: normal inspection - Respiratory Respiratory exam: Present: normal lung sounds bilaterally - Cardiovascular Cardiovascular exam: Present: normal rhythm, tachycardia - Abdominal Exam Abdominal exam: Present: soft, Non-Tender - Rectal Exam Real Estate Paralegal present during exam: Yes Rectal exam: Present: normal inspection, heme (-) stool - Neurological Exam Neurological exam: Present: alert - Skin Skin exam: Present: warm, dry Course - Reevaluation(s) Reevaluation #1: Blood pressure improved after IV fluids. Starting transfusion. Calling for admission. Patient's mental status is also improved. She is awake alert and conversant. Cooperative. Time: 18:58 - Consultations Consultation #1: Dr. Resendiz accepts for admission. Time: 18:59 Vital Signs Temperature 98.1 F 09/10/17 16:53 Pulse Rate 132 09/10/17 16:53 Respiratory Rate 15 09/10/17 16:53 Blood Pressure 74/49 09/10/17 16:53 O2 Sat by Pulse Oximetry 99 09/10/17 16:53 Temperature 98.1 F 09/10/17 16:53 Pulse Rate 103 09/10/17 18:40 Respiratory Rate 20 09/10/17 18:40 Blood Pressure 93/59 09/10/17 18:40 O2 Sat by Pulse Oximetry 98 09/10/17 18:40 Oxygen Delivery Oxygen Delivery Room Air Medical Decision Making - MDM Narrative Medical decision making narrative: Blood pressure improved after IV fluids. We will start transfusion as she is hypotensive. Admit. - Lab Data Result diagrams: 09/10/17 17:24 09/10/17 17:24 Lab Results 09/10/17 09/10/17 09/10/17 Range/Units 17:24 17:24 17:24 WBC 3.3 L D (4.3-11.1) K/mcL RBC 3.00 L (3.82-4.97) M/mcL Hgb 8.2 L D (11.5-15.4) g/dL Hct 24.9 L (35.3-44.9) % MCV 83.0 (83.0-100.0) fL MCH 27.3 L (28.0-33.3) pg MCHC 32.9 (31.6-35.5) g/dL RDW 15.9 H (11.5-14.5) % Plt Count 114 L (140-400) K/mcL MPV 12.5 H (9.4-12.4) fL Seg Neutrophils % 44.0 % Band Neutrophils % 6.0 H (0-4) % Lymphocytes % 38.0 % Monocytes % 12.0 % Neutrophils # 1.7 (1.6-8.9) K/mcL Lymphocytes # 1.3 (0.6-4.6) K/mcL Monocytes # 0.4 (0.0-1.3) K/mcL Platelet Estimate Decreased L (Normal) Hypochromasia Present A (Not Present) Sodium 129 L (136-145) mEq/L Potassium 4.1 (3.5-5.1) mEq/L Chloride 101 (98-107) mEq/L Carbon Dioxide 16 L (23-29) mEq/L BUN 22 (8-23) mg/dL Creatinine 0.94 (0.60-1.20) mg/dL Est GFR ( Amer) > 60 (> 60) Est GFR (Non-Af Amer) 60 (> 60) BUN/Creatinine Ratio 23 (6-26) Glucose 113 H (70-105) mg/dL Calculated Osmolality 272 L (280-300) Lactic Acid 2.0 (0.5-2.2) mmol/L Calcium 8.9 (8.6-10.3) mg/dL Phosphorus 3.2 (2.7-4.5) mg/dL Magnesium 1.2 L (1.6-2.6) mg/dL Total Bilirubin 2.6 H (0.3-1.0) mg/dL Direct Bilirubin 1.5 H (0.0-0.2) mg/dL Indirect Bilirubin 1.1 (0.0-1.2) mg/dL AST 9 L (13-39) Units/L ALT 6 L (7-52) Units/L Alkaline Phosphatase 151 H (34-104) Units/L Troponin I < 0.03 (< 0.04) ng/mL Serum Total Protein 5.8 L (6.4-8.9) g/dL Albumin 2.9 L (3.5-5.7) g/dL Globulin 2.9 (2.4-3.5) g/dL Albumin/Globulin Ratio 1.0 L (1.1-2.2) Urine Color (Yellow) Urine Clarity (Clear) Urine pH (5.0-8.0) pH Units Ur Specific [place] (1.010-1.025) Urine Protein (Neg-Trace) mg/dL Urine Glucose (UA) (Normal) mg/dL Urine Ketones (Negative) mg/dL Urine Blood (Negative) Urine Nitrite (Negative) Urine Bilirubin (Negative) Urine Urobilinogen (Normal) mg/dL Ur Leukocyte Esterase (Negative) Urine Microscopic WBC (0-3) per hpf Ur Squamous Epith Cells (None-Few) per lpf Urine Bacteria (None-Few) per hpf Granular Casts (None Seen) per lpf Ur Culture Indicated? (NO) Blood Type Antibody Screen Crossmatch 09/10/17 09/10/17 Range/Units 17:24 17:41 WBC (4.3-11.1) K/mcL RBC (3.82-4.97) M/mcL Hgb (11.5-15.4) g/dL Hct (35.3-44.9) % MCV (83.0-100.0) fL MCH (28.0-33.3) pg MCHC (31.6-35.5) g/dL RDW (11.5-14.5) % Plt Count (140-400) K/mcL MPV (9.4-12.4) fL Seg Neutrophils % % Band Neutrophils % (0-4) % Lymphocytes % % Monocytes % % Neutrophils # (1.6-8.9) K/mcL Lymphocytes # (0.6-4.6) K/mcL Monocytes # (0.0-1.3) K/mcL Platelet Estimate (Normal) Hypochromasia (Not Present) Sodium (136-145) mEq/L Potassium (3.5-5.1) mEq/L Chloride (98-107) mEq/L Carbon Dioxide (23-29) mEq/L BUN (8-23) mg/dL Creatinine (0.60-1.20) mg/dL Est GFR ( Amer) (> 60) Est GFR (Non-Af Amer) (> 60) BUN/Creatinine Ratio (6-26) Glucose (70-105) mg/dL Calculated Osmolality (280-300) Lactic Acid (0.5-2.2) mmol/L Calcium (8.6-10.3) mg/dL Phosphorus (2.7-4.5) mg/dL Magnesium (1.6-2.6) mg/dL Total Bilirubin (0.3-1.0) mg/dL Direct Bilirubin (0.0-0.2) mg/dL Indirect Bilirubin (0.0-1.2) mg/dL AST (13-39) Units/L ALT (7-52) Units/L Alkaline Phosphatase (34-104) Units/L Troponin I (< 0.04) ng/mL Serum Total Protein (6.4-8.9) g/dL Albumin (3.5-5.7) g/dL Globulin (2.4-3.5) g/dL Albumin/Globulin Ratio (1.1-2.2) Urine Color [place] A (Yellow) Urine Clarity [place] A (Clear) Urine pH 5.5 (5.0-8.0) pH Units Ur Specific [place] 1.025 (1.010-1.025) Urine Protein 30 H (Neg-Trace) mg/dL Urine Glucose (UA) Normal (Normal) mg/dL Urine Ketones Trace H (Negative) mg/dL Urine Blood Negative (Negative) Urine Nitrite Positive A (Negative) Urine Bilirubin Moderate H (Negative) Urine Urobilinogen 4.0 H (Normal) mg/dL Ur Leukocyte Esterase Small H (Negative) Urine Microscopic WBC 3-5 H (0-3) per hpf Ur Squamous Epith Cells Many H (None-Few) per lpf Urine Bacteria None Seen (None-Few) per hpf Granular Casts Few H (None Seen) per lpf Ur Culture Indicated? NO. A (NO) Blood Type B POSITIVE Antibody Screen NEGATIVE Crossmatch See Detail - Radiology Data Radiology results reviewed: Yes I reviewed the patient's radiology results. Chest X-Ray 09/10/17 18:02 IMPRESSION: No acute process. D/ / Pierce Lipscomb MD / Pierce Lipscomb MD Interpreting Provider: Pierce Lipscomb MD Critical Care Time Critical Care Time: Yes Total Critical Care Time: 40 Attestation: Critical care performed: Time is exclusive of separately billable procedures. Time includes: direct patient care, patient reassessment, coordination of patient care, interpretation of data (laboratory data, radiology data, and respiratory data), review of patient's medical records, medical consultation and documentation of patient care. Procedures included in critical care time: Procedures excluded from critical care time:
[2017-09-10 17:44] LABS: Hematocrit 24.9 % (35.3-44.9); Mean Corpuscular HGB Conc 32.9 g/dL (31.6-35.5); Mean Corpuscular Hemoglobin 27.3 pg (28.0-33.3); Mean Platelet Volume 12.5 fL (9.4-12.4); Platelet Count 114 K/mcL (140-400); Red Cell Distribution Width 15.9 % (11.5-14.5)
[2017-09-10 17:45] LABS: Hemoglobin 8.2 g/dL (11.5-15.4)
[2017-09-10 18:05] LABS: Bilirubin,Urine Moderate (Negative); Blood,Urine Negative (Negative); Clarity,Urine Cloudy (Clear); Color,Urine Orange (Yellow); Glucose,Urine (UA) Normal (Normal); Ketones,Urine Trace mg/dL (Negative); Leukocyte Esterase,Urine Small (Negative); Nitrite,Urine Positive (Negative); PH,Urine 5.5 pH Units (5.0-8.0); Protein,Urine 30 mg/dL (Neg-Trace); Specific Gravity,Urine 1.025 (1.010-1.025)
[2017-09-10 18:05] LABS: Troponin I < 0.03 ng/mL (< 0.04)
[2017-09-10 18:06] LABS: Alanine Aminotransferase 6 Units/L (7-52); Albumin 2.9 g/dL (3.5-5.7); Alkaline Phosphatase 151 Units/L (34-104); Aspartate Amino Transferase 9 Units/L (13-39); BUN/Creatinine Ratio 23 (6-26); Bilirubin,Direct 1.5 mg/dL (0.0-0.2); Bilirubin,Indirect 1.1 mg/dL (0.0-1.2); Bilirubin,Total 2.6 mg/dL (0.3-1.0); Blood Urea Nitrogen 22 mg/dL (8-23); Calcium 8.9 mg/dL (8.6-10.3); Carbon Dioxide 16 mEq/L (23-29); Chloride 101 mEq/L (98-107); Globulin 2.9 g/dL (2.4-3.5); Glucose 113 mg/dL (70-105); Magnesium 1.2 mg/dL (1.6-2.6); Osmolality,Calculated 272 (280-300); Phosphorous 3.2 mg/dL (2.7-4.5); Potassium 4.1 mEq/L (3.5-5.1); Sodium 129 mEq/L (136-145); Total Protein 5.8 g/dL (6.4-8.9); eGFR For African Americans > 60 (> 60); eGFR For Non-African Americans 60 (> 60)
[2017-09-10 18:10] LABS: Bacteria,Urine None Seen per hpf (None-Few); Squamous Epithelial Cell,Urine Many per lpf (None-Few)
[2017-09-10 18:27] LABS: Hypochromasia Present (Not Present); Lymphocytes # 1.3 K/mcL (0.6-4.6); Monocytes # 0.4 K/mcL (0.0-1.3); Neutrophils # 1.7 K/mcL (1.6-8.9); Platelet Estimate Decreased (Normal)
[2017-09-10 18:48] LABS: Granular Casts,Urine Few per lpf (None Seen)
[2017-09-10] MEDS ORDERED: Ipratropium/Albuterol Neb 3 ML IH ONE (18:51)
[2017-09-10] MEDS ORDERED: Pantoprazole 40 MG VIAL IVP ONE (19:00)
[2017-09-10] MEDS ORDERED: 0.9 % Sodium Chloride 500 ML ONE (19:16)
[2017-09-10 19:33] LABS: Prothrombin Time 32.8 Seconds (9.4-12.1)
[2017-09-10 19:36] LABS: Activated Partial Thrombo Time 56.8 Seconds (26.0-36.0)
[2017-09-10] MEDS ORDERED: Naloxone 0.4 MG/ML INJ IVP PRN (20:10)
[2017-09-10] MEDS ORDERED: Acetaminophen 325 MG TABLET PO PRN (20:10)
[2017-09-10] MEDS ORDERED: 0.9 % Sodium Chloride 1,000 ML IVC SCH (20:15)
--- NOTE | 2017-09-10 20:17 | Internal Med History&Physical ---
Date of Encounter: 09/10/17 Time of Encounter: 20:10 Internal Medicine - H&P: HPI Chief complaint: symptomatic anemia Admitted From: Emergency Dept History of present illness: Ms. Burnett is a 67 year old female with PMhx of anemia, CKD stage III,G.I. bleed , GI bleed, arrhythmia, Hx of NH, HTN, HLD, hypothyroidism, pancytopenia requiring transfusions. Patient was sent to the ED from her PCP office today for symptomatic anemia. Her, pain, weakness, shortness of breath. Patient was recently hospitalized here at [place] from 09/01-09/04 for anemia workup. At that time, patient had both EGD and colonoscopy that showed medium-sized hiatal hernia, irregular Z line that was biopsied, diverticulosis of the sigmoid colon. Bleeding was found at that time. 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 During last hospitalization, consult to oncology was made. They recommended follow-up outpatient with bone marrow biopsy, which was originally scheduled for tomorrow, with plan for follow up with oncology afterwards. That time, bone marrow pathology or MDS was of concern. Patient was discharged on 09/04. Today, patient was sent to the ED from her PCP's office for symptomatic anemia. She reports having shortness of breath, weakness, trouble walking. She also reports a 50 pound weight loss over the past 6 months with loss of appetite. She denies nausea, vomiting, diarrhea, fever, chills, chest pain. She denies hematuria, melena, hematochezia. After arrival to the the emergency department, patient was was hypotensive with BP 74/49. After 1 L fluid bolus, her systolic pressure increased to the 90s. She also had one unit of blood transfused in the ED for symptomatically anemia. Social Hx: has been smoking for the past 10 years. On average smokes 10-15 cigarettes per day. denies alcohol or illicit drug use. Pertinent Family Hx: Father was smoker and of lung cancer. Past Med Surg Social Fam HX - Past Medical History Medical history: hyperlipidemia, hypertension, myocardial infarction, other Psychiatric history: no psych history - Past Surgical History Surgical History: no surgical history - Social History Smoking Status: Current every day smoker Smokeless Tobacco Status: No Alcohol use: none Drug use: none - Family History Mother Living Status: Hx Family Cancer: Yes Internal Medicine - H&P: Meds ALPRAZolam [Xanax 0.5 MG Tablet] 0.5 mg PO BID PRN 07/27/17 [History] Atenolol [Tenormin] 50 mg PO DAILY 07/27/17 [History] Cyanocobalamin (B-12) [Vitamin B12] 1,000 mcg IM Q2W 07/27/17 [History] Diclofenac Sodium [Voltaren] 1 appl TP QID PRN 07/27/17 [History] HYDROcodone/Acet 5/325 mg [[place] 5-325 mg] 1 tab PO TID PRN 07/27/17 [History] Nitroglycerin [Nitrostat] 0.4 mg SL Q5M PRN 07/27/17 [History] Ondansetron HCl [Zofran] 4 - 8 mg PO TID PRN 07/27/17 [History] Potassium Chloride [K-Tab ER] 20 meq PO BID 07/27/17 [History] Pravastatin Sodium [Pravachol] 20 mg PO HS 07/27/17 [History] Trazodone HCl 100 mg PO HS 07/27/17 [History] Levothyroxine [Synthroid] 25 mcg PO 0630 08/21/17 [History] [place]-3 Fatty Acids [Fish Oil Concentrate] 2,000 mg PO BID 08/21/17 [History] 3 Allergy/AdvReac Type Severity Reaction Status Date / Time No Known Allergies Allergy Verified 09/10/17 19:44 All Systems PM: A 10-system review of systems was performed and is negative for pertinent findings except as documented above in the HPI. - Constitutional Constitutional: fatigue, falls, lethargy, weakness, no chills, no fever(s) - EENT Nose, mouth and throat: dry mouth - Cardiovascular Cardiovascular ROS IM: no chest pain, no diaphoresis - Respiratory Respiratory: dyspnea, no cough - Gastrointestinal Gastrointestinal: no abdominal pain, no hematemesis, no hematochezia, no melena - Genitourinary Genitourinary: no hematuria - Neurological Neurological ROS: abnormal gait, weakness - Constitutional Vitals: Temp Pulse Resp BP Pulse Ox 98.6 F 103 22 96/58 96 09/10/17 19:29 09/10/17 19:29 09/10/17 19:29 09/10/17 19:29 09/10/17 19:29 General appearance: Present: mild distress (Mild respiratory distress with conversational dyspnea), A&O X 3, pleasant Exam: Patient is laying in bed, appears very fatigued, and slow to answer questions. - Head Head exam: Present: atraumatic - Eye Additional comments: Injunctive will pallor present. - Respiratory Additional comments: Expiratory wheezing present predominantly in the upper lobes bilaterally. - Cardiovascular Cardiovascular exam: Present: RRR, +S1, +S2 - GI/Abdominal GI/Abdominal exam: Present: normal bowel sounds, soft. Absent: distended, tenderness - Extremities Exam Extremities exam: Absent: cyanotic, pedal edema - Neurological Exam Neurological exam: Present: alert, oriented X3 - Skin Additional comments: Skin is very pale with conjunctival pallor, delayed capillary refill. palpable peripheral pulses +2 in all four extremities. Internal Med - H&P Results - Labs CBC & Chem 7: 09/10/17 17:24 09/10/17 17:24 - Assessment and plan (1) Symptomatic anemia Current Visit: Yes Status: Acute Assessment and plan: Patient arrived with symptoms of weakness, trouble walking, shortness of breath , fatigue hemoglobin upon admission was 8.2. Patient has had symptomatic anemia in the past that has required blood transfusions. During last hospital admission she had both EGD and colonoscopy and no source of bleeding was found at that time. Patient was seen by heme/onc during last admission, there was concern for bone marrow pathology/MDS. Was supposed to have scheduled outpatient bone marrow biopsy tomorrow. EKG showed sinus tachycardia. 08/20/17: B12: 1354 08/01/17: Folate: 6.1 08/20/17: iron: 32, % saturation: 14, Transferrin: 167, Ferritin: 1108 Plan: one unit blood transfused. IV fluids recheck H/H in the a.m. continue B-12 supplement consult to heme/onc. (2) Pancytopenia Current Visit: No Status: Chronic Assessment and plan: Plan as above (3) Hyponatremia Current Visit: Yes Status: Acute Assessment and plan: Likely secondary to decreased oral intake. Continue to monitor (4) Elevated INR Current Visit: Yes Status: Acute Assessment and plan: INR [address] Abdomen/pelvis in July hepatitis profile pending (5) Hypotension Current Visit: No Status: Resolved Assessment and plan: patient had BP of 74/49 upon arrival to ED. Systolic BP increased to high 90s/100s after one fluid bolus. Plan: IVF hold atenolol for now. Qualifiers: Hypotension type: unspecified hypotension type Qualified Code(s): I95.9 - Hypotension, unspecified (6) Hypothyroidism Current Visit: Yes Status: Acute Assessment and plan: Continue home medication Synthroid Qualifiers: Hypothyroidism type: unspecified Qualified Code(s): E03.9 - Hypothyroidism , unspecified (7) Chronic kidney disease Current Visit: No Status: Acute Assessment and plan: History of see CKD stage III continue to monitor. Qualifiers: Chronic kidney disease stage: stage 3 (moderate) Qualified Code(s): N18.3 - Chronic kidney disease, stage 3 (moderate) (8) Weakness Current Visit: No Status: Acute Assessment and plan: Consult to PT/OT (9) Falls Current Visit: Yes Status: Acute Assessment and plan: patient falls at home about 2x/week consult PT/OT Qualifiers: Encounter type: sequela Qualified Code(s): W19.XXXS - Unspecified fall, sequela (10) DVT prophylaxis Current Visit: No Status: Acute Assessment and plan: EPCDs - Time Spent With Patient Total time spent is greater than 50% in coordination of care (as documented) at patient's floor/unit and/or counseling patient:
[2017-09-10] MEDS ORDERED: Nitroglycerin 0.4 MG TAB.SUBL SL PRN (20:43)
[2017-09-10] MEDS ORDERED: *HR* HYDROcodone/Acet 5/325 mg TABLET PO PRN (20:43)
[2017-09-10] MEDS ORDERED: Cyanocobalamin (B-12) 1,000 MCG/ML VIAL IM SCH (20:45)
[2017-09-10] MEDS: traZODone 50 MG TABLET PO SCH (22:07)
[2017-09-11 05:36] LABS: Red Cell Distribution Width 15.5 % (11.5-14.5)
[2017-09-11 05:38] LABS: Hematocrit 25.1 % (35.3-44.9); Hemoglobin 8.2 g/dL (11.5-15.4); INR 3.1; Immature Platelets 6.9 % (1.1-6.1); Mean Corpuscular HGB Conc 32.7 g/dL (31.6-35.5); Mean Corpuscular Hemoglobin 27.2 pg (28.0-33.3); Mean Corpuscular Volume 83.1 fL (83.0-100.0); Mean Platelet Volume 10.8 fL (9.4-12.4); Prothrombin Time 34.6 Seconds (9.4-12.1); Red Blood Count 3.02 M/mcL (3.82-4.97)
[2017-09-11 05:41] LABS: Platelet Count 76 K/mcL (140-400)
[2017-09-11] MEDS: Levothyroxine 25 MCG TABLET PO SCH (05:48)
[2017-09-11 05:51] LABS: Alanine Aminotransferase 4 Units/L (7-52); Albumin 2.3 g/dL (3.5-5.7); Alkaline Phosphatase 115 Units/L (34-104); Aspartate Amino Transferase 10 Units/L (13-39); BUN/Creatinine Ratio 28 (6-26); Blood Urea Nitrogen 22 mg/dL (8-23); Calcium 7.9 mg/dL (8.6-10.3); Carbon Dioxide 14 mEq/L (23-29); Chloride 106 mEq/L (98-107); Globulin 2.3 g/dL (2.4-3.5); Glucose 101 mg/dL (70-105); Magnesium 1.7 mg/dL (1.6-2.6); Osmolality,Calculated 275 (280-300); Phosphorous 3.6 mg/dL (2.7-4.5); Potassium 3.8 mEq/L (3.5-5.1); Sodium 131 mEq/L (136-145); Total Protein 4.6 g/dL (6.4-8.9); eGFR For African Americans > 60 (> 60); eGFR For Non-African Americans > 60 (> 60)
[2017-09-11 06:04] LABS: Lymphocytes # 0.6 K/mcL (0.6-4.6); Monocytes # 0.4 K/mcL (0.0-1.3); Neutrophils # 1.3 K/mcL (1.6-8.9)
[2017-09-11 06:05] LABS: Platelet Estimate Decreased (Normal)
[2017-09-11] MEDS ORDERED: 0.9 % Sodium Chloride 500 ML ONE (08:24)
[2017-09-11] MEDS: Ipratropium/Albuterol Neb 3 ML IH PRN ×2 (12:08→20:14)
--- NOTE | 2017-09-11 13:12 | Oncology Inp Consult Note ---
<Fabiola Macario - Last Filed: 09/11/17 17:29> Date of Encounter: 09/11/17 Time of Encounter: 11:00 Assessment and Plan (1) Pancytopenia Status: Chronic Assessment and plan: Bone marrow pathology or MDS of concern. Presence of metamyelocytes, myelocytes, promyelocytes may indicate underlying neoplasm- blood smear with pathology review pending Anemia stable s/p 2 units PRBC EGD/Colonoscopy during prior admission did not find source of bleeding Occult stool-pending B12, folate, iron replete. TSH essentially normal. SPEP-no monoclonal proteins Mild splenomegaly with adenopathy noted on CT abdomen/pelvis July 2017 CT abdomen/pelvis and transvaginal US revealed 2.2 x 1.7 x 2.0 cm hyperechoic rounded lesion in the inferior right uterine body May consider bone marrow biopsy during inpatient stay-INR will need to be 1.5 or less for biopsy-re check INR in am, will make NPO in prep for biopsy and decide on biopsy further tomorrow after assessing am labs. Elevated INR of unknown etiology-workup as below Continue supportive treatment with transfusions for Hgb <7, platelets <10 (2) Elevated INR Status: Acute Assessment and plan: Elevated INR 3.1, PT 34, aPTT 56. CT abdomen/pelvis in July did note enlarged spleen, liver unremarkable. Hepatitis panel ordered per primary team-pending AST 10, ALT 4 Check factor VII activity, lupus anticoagulant, PT inhibitor assay, PTT inhibitor assay LDH/Blood smear-to assess for MAHA although indirect bili is normal making this unlikely - Data of Consult Requesting Physician: Liza Resendiz Primary Care Provider: Amaris Hamilton - Consult Narrative Reason for consult: Pancytopenia, elevated INR/PT/PTT History of present illness: Ms. Burnett is a 67 year old female under current hematological workup for pancytopenia with possible bone marrow pathology or mild dysplastic syndrome. Ms. Burnett does have mild splenomegaly and borderline lymphadenopathy. At her most recent visit she had agreed to bone marrow biopsy and aspiration which was already arranged for tomorrow as an outpatient procedure. She was recently hospitlized prior to current admission for progressive weakness , fatigue and SOB. She was found to be anemic s/p blood transfusion about 2 weeks prior, hypotensive and tachycardic. GI was consulted on admission. EGD revealed hiatal hernia and irregular Z-line, pathology pending. Colonoscopy revealed diverticulosis. She has received 3 units PRBC during prior admission. She was planned to discharge and have her outpatient BMB the following day, however, did not attend her appointment due to feeling ill. She presents to [facility] on 09/10/17 following instruction from her PCP for her symptomatic anemia. Of note, she does report decreased appetite, 60 pound weight loss over the past 6 months. She has experienced progressive weakness, she lives at home with her who helps her with 24 hour care. She reports her performance status has further declined since her last admission, she was once able to ambulate small distances in her home and has recently been unable to do so secondary to her SOB and fatigue. Past Med Surg Social Fam HX - Past Medical History Medical history: hyperlipidemia, hypertension, myocardial infarction, other Psychiatric history: no psych history - Past Surgical History Surgical History: no surgical history - Social History Smoking Status: Former smoker Smokeless Tobacco Status: No Alcohol use: none Drug use: none - Family History Mother Living Status: Hx Family Cancer: Yes Medications and Allergies ALPRAZolam [Xanax 0.5 MG Tablet] 0.5 mg PO BID PRN 07/27/17 [History] Atenolol [Tenormin] 50 mg PO DAILY 07/27/17 [History] Cyanocobalamin (B-12) [Vitamin B12] 1,000 mcg IM Q2W 07/27/17 [History] Diclofenac Sodium [Voltaren] 1 appl TP QID PRN 07/27/17 [History] HYDROcodone/Acet 5/325 mg [[place] 5-325 mg] 1 tab PO TID PRN 07/27/17 [History] Nitroglycerin [Nitrostat] 0.4 mg SL Q5M PRN 07/27/17 [History] Ondansetron HCl [Zofran] 4 - 8 mg PO TID PRN 07/27/17 [History] Potassium Chloride [K-Tab ER] 20 meq PO BID 07/27/17 [History] Pravastatin Sodium [Pravachol] 20 mg PO HS 07/27/17 [History] Trazodone HCl 100 mg PO HS 07/27/17 [History] Levothyroxine [Synthroid] 25 mcg PO 0630 08/21/17 [History] [place]-3 Fatty Acids [Fish Oil Concentrate] 2,000 mg PO BID 08/21/17 [History] 3 Allergy/AdvReac Type Severity Reaction Status Date / Time No Known Allergies Allergy Verified 09/10/17 19:44 Constitutional: Present: anorexia, fatigue, malaise, weakness, weight loss. Absent: chills, fever(s), frequent falls, night sweats Eyes: Absent: change in vision Nose, mouth and throat: Absent: dysphagia Cardiovascular: Absent: chest pain, irregular heart rhythm Respiratory: Present: cough, dyspnea. Absent: hemoptysis Gastrointestinal: Absent: abdominal pain, change in bowel habits, hematemesis, hematochezia, melena, nausea, vomiting Genitourinary: Absent: dysuria, hematuria Integumentary: Absent: wounds Psychiatric: Present: change in appetite Hematologic/Lymphatic: Present: as per HPI Oncology - Exam - Constitutional Vitals: Temp Pulse Resp BP Pulse Ox 98.9 F 108 20 111/77 97 09/11/17 11:40 09/11/17 11:40 09/11/17 12:08 09/11/17 11:40 09/11/17 12:08 General appearance: cooperative, no acute distress, no febrile Exam: chronically ill appearing - Head Head exam: Present: atraumatic - ENT ENT exam: Present: mucous membranes dry Additional comments: white plaque to tongue/ small lesions to soft palate - Respiratory Respiratory exam: Present: wheezes. Absent: respiratory distress - Cardiovascular Cardiovascular exam: Present: RRR, +S1, +S2 - GI/Abdominal GI/Abdominal exam: Present: normal bowel sounds, soft. Absent: tenderness - Extremities Exam Extremities exam: Present: normal inspection. Absent: calf tenderness - Neurological Exam Neurological exam: Present: alert, oriented X3, strengths equal and symetr throughout - Psychiatric Psychiatric exam: Present: normal affect, normal mood - Skin Skin exam: Present: dry, intact, pallor, warm Oncology - Results Labs: Short CBC 09/11/17 Range/Units 04:56 WBC 2.4 L (4.3-11.1) K/mcL Hgb 8.2 L (11.5-15.4) g/dL Hct 25.1 L (35.3-44.9) % Plt Count 76 L (140-400) K/mcL Neutrophils # 1.3 L (1.6-8.9) K/mcL BMP 05/08/18 04:56 Sodium 131 L Potassium 3.8 Chloride 106 Carbon Dioxide 14 L BUN 22 Creatinine 0.79 Glucose 101 Calcium 7.9 L Liver Function 09/11/17 Range/Units 04:56 Total Bilirubin 3.0 H (0.3-1.0) mg/dL AST 10 L (13-39) Units/L ALT 4 L (7-52) Units/L Alkaline Phosphatase 115 H (34-104) Units/L Albumin 2.3 L (3.5-5.7) g/dL Consult Discharge Plan - Plan Referrals: Amaris Hamilton MD [Primary Care Provider] - <Veronica Abraham S - Last Filed: 09/11/17 18:37> Date of Encounter: 09/11/17 - Data of Consult Requesting Physician: Liza Resendiz Primary Care Provider: Amaris Hamilton - Consult Narrative History of present illness: Ms. Burnett is a 67 year old female Oncology - Exam - Constitutional Vitals: Temp Pulse Resp BP Pulse Ox 97.5 F L 114 20 106/75 96 09/11/17 15:22 09/11/17 15:22 09/11/17 15:22 09/11/17 15:22 09/11/17 15:22 Oncology - Results Labs: Short CBC 09/11/17 09/11/17 Range/Units 04:56 14:02 WBC 2.4 L (4.3-11.1) K/mcL Hgb 8.2 L 10.3 L D (11.5-15.4) g/dL Hct 25.1 L 29.7 L (35.3-44.9) % Plt Count 76 L (140-400) K/mcL Neutrophils # 1.3 L (1.6-8.9) K/mcL BMP 09/11/17 04:56 Sodium 131 L Potassium 3.8 Chloride 106 Carbon Dioxide 14 L BUN 22 Creatinine 0.79 Glucose 101 Calcium 7.9 L Liver Function 09/11/17 Range/Units 04:56 Total Bilirubin 3.0 H (0.3-1.0) mg/dL AST 10 L (13-39) Units/L ALT 4 L (7-52) Units/L Alkaline Phosphatase 115 H (34-104) Units/L Albumin 2.3 L (3.5-5.7) g/dL - Attending Attestation 1. Pancytopenia. Also splenomegaly about 14 cm. No evidence of cirrhosis. Evaluated by Dr. Prescott Plan is to do a bone marrow aspiration and biopsy MCV 83 B12 folate normal. Ferritin elevated at 1100. Mild hypothyroidism TSH 5.9 2. Coagulopathy. Elevated prothrombin time to 34. This has progressed from 20 range last month. Also mildly elevated PTT of 56. We will check for lupus anticoagulant and PT/PTT inhibitors. If her PT does not improve may give FFP Her coagulopathy may be related to her pancytopenia as well. She also has mildly elevated total bilirubin 3. Indirect normal at 1.1 Liver enzymes are normal 3. Uterine mass may be fibroid ice 2.2 cm. This was visualized by CT abdomen and ultrasound 07/27/2017. Radiologist recommended MRI to characterize that better
[2017-09-11 13:19] LABS: Lactate Dehydrogenase 141 Units/L (140-271)
[2017-09-11 14:21] LABS: Hematocrit 29.7 % (35.3-44.9)
[2017-09-11 14:22] LABS: Hemoglobin 10.3 g/dL (11.5-15.4)
--- NOTE | 2017-09-11 16:16 | Electrocardiograph Report ---
[address] [place], [place] [address] Test Date: 2017-09-10 Pat Name: Telma Burnett Department: 102 Room: 2A Gender: F Rail Bender: : 1950 Requested By: Muriel See Order Number: [id number] Reading MD: Jessica Christiansen Measurements Intervals [place] Rate: 126 P: 67 VA: 139 QRS: -7 QRSD: 86 T: 77 QT: 279 QTc: 354 Interpretive Statements SINUS TACHYCARDIA POSSIBLE ANTEROSEPTAL MYOCARDIAL INFARCTION OF INDETERMINATE AGE Electronically Signed On 09-11-2017 16:14:36 EDT by Jessica Christiansen
[2017-09-11] MEDS: traZODone 50 MG TABLET PO SCH (20:23)
[2017-09-11] MEDS: ALPRAZolam 0.5 MG TABLET PO PRN (20:24)
--- NOTE | 2017-09-11 21:08 | Internal Med Progress Note ---
Date of Encounter: 09/11/17 Time of Encounter: 15:47 - Assessment and plan (1) Symptomatic anemia Current Visit: Yes Status: Acute Assessment and plan: Symptoms improved s/p 2 units PRBC. BP improved. Transfuse to keep hemoglobin > 10.0. Pancytopenia workup with heme/onc consult and plan for bone marrow biopsy in AM. NPO after midnight. Will continue IVF at low rate as per below. Continue vitamin B12 supplementation. Recheck CBC in AM. (2) Chronic blood loss anemia Current Visit: Yes Status: Chronic Assessment and plan: Management as per above. (3) Pancytopenia Current Visit: Yes Status: Chronic Assessment and plan: Heme/onc consulted; appreciate input. Plan as per above. (4) Hypotension Current Visit: Yes Status: Resolved Assessment and plan: BP improved. Continue to treat anemia as per above. Gentle IVF as per below. Continue to hold home atenolol for now. Qualifiers: Hypotension type: unspecified hypotension type Qualified Code(s): I95.9 - Hypotension, unspecified (5) Chronic kidney disease Current Visit: Yes Status: Chronic Assessment and plan: History of CKD stage III. Recheck BMP in AM. Qualifiers: Chronic kidney disease stage: stage 3 (moderate) Qualified Code(s): N18.3 - Chronic kidney disease, stage 3 (moderate) (6) Weakness Current Visit: Yes Status: Acute Assessment and plan: Addressing anemia as per above. PT/OT consulted. (7) Hypothyroidism Current Visit: Yes Status: Chronic Assessment and plan: Continue home medications. Qualifiers: Hypothyroidism type: unspecified Qualified Code(s): E03.9 - Hypothyroidism , unspecified (8) Hyponatremia Current Visit: Yes Status: Acute Assessment and plan: Improved. Likely secondary to decreased oral intake. Continue gentle hydration with IV NS at 40 ml/hr. Consult associate accountant. (9) Elevated INR Current Visit: Yes Status: Acute Assessment and plan: INR 3.1 today. Will need 1.5 for bone marrow biopsy. Consider FFP if not normalizing. (10) Falls Current Visit: Yes Status: Chronic Assessment and plan: Addressing anemia as per above. PT/OT consulted. Qualifiers: Encounter type: sequela Qualified Code(s): W19.XXXS - Unspecified fall, sequela (11) DVT prophylaxis Current Visit: Yes Status: Acute Assessment and plan: Continue SCDs. - Time Spent With Patient Total time spent is greater than 50% in coordination of care (as documented) at patient's floor/unit and/or counseling patient: less than 15 minutes - Subjective Interval history: Patient had no acute events overnight. She states that she is feeling better today after blood transfusion. She denies chest pain, SOB, fever, chills, nausea, or vomiting. She has no complaints at this time. - Constitutional Vitals: Temp Pulse Resp BP Pulse Ox 99.1 F 111 18 120/79 94 09/11/17 18:58 09/11/17 18:58 09/11/17 20:16 09/11/17 18:58 09/11/17 20:22 General appearance: Present: cooperative, A&O X 3, pleasant, no acute distress, answers questions appropriately - Respiratory Respiratory exam: Present: CTAB. Absent: accessory muscle use, rales, rhonchi, wheezes Additional comments: Normal WOB - Cardiovascular Cardiovascular exam: Present: RRR, +S1, +S2. Absent: diastolic murmur, gallop, rubs, systolic murmur Additional comments: No BLE edema - GI/Abdominal GI/Abdominal exam: Present: normal bowel sounds, soft. Absent: distended, hepatomegaly, mass, splenomegaly, tenderness - Psychiatric Psychiatric exam: Present: normal affect, normal mood. Absent: agitated, anxious, depressed - Skin Skin exam: Present: dry, intact, warm. Absent: cyanosis, rash Internal Medicine: Result - Labs CBC & Chem 7: 09/11/17 14:02 09/11/17 04:56 Labs: Short CBC 09/11/17 09/11/17 Range/Units 04:56 14:02 WBC 2.4 L (4.3-11.1) K/mcL Hgb 8.2 L 10.3 L D (11.5-15.4) g/dL Hct 25.1 L 29.7 L (35.3-44.9) % Plt Count 76 L (140-400) K/mcL Neutrophils # 1.3 L (1.6-8.9) K/mcL BMP 09/11/17 04:56 Sodium 131 L Potassium 3.8 Chloride 106 Carbon Dioxide 14 L BUN 22 Creatinine 0.79 Glucose 101 Calcium 7.9 L Liver Function 05/08/18 Range/Units 04:56 Total Bilirubin 3.0 H (0.3-1.0) mg/dL AST 10 L (13-39) Units/L ALT 4 L (7-52) Units/L Alkaline Phosphatase 115 H (34-104) Units/L Albumin 2.3 L (3.5-5.7) g/dL - ABG Interpretation ABG results: PT/INR, D-dimer PT 34.6 Seconds (9.4-12.1) H 09/11/17 04:56 - VTE Documentation of Mechanical Device: Intermittent pneumatic compression device Consult Discharge Plan - Plan Referrals: Amaris Hamilton MD [Primary Care Provider] -
[2017-09-11] MEDS ORDERED: FISH OIL 2000 MG PO SCH (21:15)
[2017-09-11 21:59] LABS: Hepatitis B Surface Antigen Nonreactive (Nonreactive)
[2017-09-12] MEDS: 0.9 % Sodium Chloride 1,000 ML IVC SCH (00:28)
[2017-09-12 04:52] LABS: Hepatitis A Antibody IgM Nonreactive (Nonreactive); Hepatitis B Core IgM Nonreactive (Nonreactive); Hepatitis C Virus Antibody Nonreactive (Nonreactive)
[2017-09-12] MEDS: Levothyroxine 25 MCG TABLET PO SCH (05:34)
[2017-09-12 07:40] LABS: BUN/Creatinine Ratio 30 (6-26); Blood Urea Nitrogen 24 mg/dL (8-23); Carbon Dioxide 17 mEq/L (23-29); Chloride 104 mEq/L (98-107); Glucose 111 mg/dL (70-105); Osmolality,Calculated 273 (280-300); Potassium 3.7 mEq/L (3.5-5.1); Sodium 129 mEq/L (136-145); eGFR For African Americans > 60 (> 60); eGFR For Non-African Americans > 60 (> 60)
[2017-09-12 07:43] LABS: Prothrombin Time 33.3 Seconds (9.4-12.1)
[2017-09-12 07:46] LABS: Activated Partial Thrombo Time 67.4 Seconds (26.0-36.0)
[2017-09-12 08:27] LABS: Hematocrit 29.4 % (35.3-44.9)
[2017-09-12 08:49] LABS: Hemoglobin 9.9 g/dL (11.5-15.4); Immature Platelets 9.1 % (1.1-6.1); Mean Corpuscular HGB Conc 33.7 g/dL (31.6-35.5); Mean Corpuscular Hemoglobin 27.8 pg (28.0-33.3); Mean Corpuscular Volume 82.6 fL (83.0-100.0); Mean Platelet Volume 12.6 fL (9.4-12.4); Red Blood Count 3.56 M/mcL (3.82-4.97); Red Cell Distribution Width 15.8 % (11.5-14.5)
[2017-09-12 09:34] LABS: Platelet Count 63 K/mcL (140-400)
[2017-09-12 09:38] LABS: Lymphocytes # 0.3 K/mcL (0.6-4.6); Monocytes # 0.6 K/mcL (0.0-1.3); Neutrophils # 1.7 K/mcL (1.6-8.9)
[2017-09-12 09:41] LABS: Platelet Estimate Decreased (Normal)
[2017-09-12] MEDS ORDERED: 0.9 % Sodium Chloride 250 ML ONE (11:08)
--- NOTE | 2017-09-12 16:11 | Oncology Inp Progress Note ---
<Fabiola Macario Dara - Last Filed: 09/13/17 09:03> Date of Encounter: 09/12/17 Time of Encounter: 15:00 (1) Pancytopenia Current Visit: Yes Status: Chronic Assessment and plan: Bone marrow pathology or MDS of concern. Anemia stable s/p 2 units PRBC. Blood smear with path review-reveal pancytopenia, Left shift with few myelocytes and metamyelocytes and rare promyelocyte seen, no identification of blasts EGD/Colonoscopy during prior admission did not find source of bleeding. Esophageal pathology report reveals Ferrell's esophagus, no dysplasia, patient taking omeprazole. Occult stool-pending B12, folate, iron replete. TSH borderline elevated. SPEP-no monoclonal proteins Mild splenomegaly with adenopathy noted on CT abdomen/pelvis July 2017 CT abdomen/pelvis and transvaginal US revealed 2.2 x 1.7 x 2.0 cm hyperechoic rounded lesion in the inferior right uterine body-MRI recommended Recommend bone marrow biopsy while inpatient-FFP administered today with repeat INR check. INR to be checked in am-if >1.5 nursing staff instructed to notify hospitalist or oncology team for further orders for FFP Elevated INR of unknown etiology-workup as below Continue supportive treatment with transfusions for Hgb <7, platelets <10 (2) Elevated INR Current Visit: Yes Status: Acute Assessment and plan: Elevated INR, PT, PTT of unclear etiology CT abdomen/pelvis in July did note enlarged spleen, liver unremarkable. Hepatitis panel nonreactive AST 10, ALT 4 Factor VII activity, lupus anticoagulant, PT inhibitor assay, PTT inhibitor assay-results pending LDH normal FFP given to correct INR to prep for BMB/aspiration Oncology: Subj Interval history: Ms. Burnett is resting in bed. She denies pain. She continues to feel weak and fatigued. Her SOB has slightly improved. She s anxious to return home and appears frustrated with her overall decline in condition. I discussed with her my concern for her decline in PS, weakness, hypotension, cytopenias and elevated coagulation studies. We discussed need for bone marrow biopsy for the need to determine underlying bone marrow pathology. SHe was previously discharged but too weak to return for bone marrow biopsy last week. Her elevated INR is needing corrected prior to her bone marrow necessitating FFP administration and INR monitoring. She agrees and voices understanding of plan and need to stay inpatient for continued workup/monitoring. - Constitutional Vitals: Vital Signs Temp Pulse Resp BP Pulse Ox 09/12/17 15:44 99.3 F 109 15 103/73 96 09/12/17 15:17 99.3 F 14 14 88/57 96 09/12/17 15:02 98.2 F 105 14 94/67 97 09/12/17 14:00 97.8 F 105 14 101/69 98 09/12/17 11:16 97.3 F L 123 16 79/61 09/12/17 07:45 97.5 F L 90 16 95/69 98 09/12/17 04:31 97.4 F L 93 15 105/72 97 09/11/17 23:37 100.4 F H 120 15 131/68 96 09/11/17 20:22 94 09/11/17 20:16 18 94 09/11/17 18:58 99.1 F 111 15 120/79 96 Intake and Output 09/12/17 09/12/17 09/12/17 07:59 15:59 23:59 Intake Total 925 / 925 Output Total 250 / 250 Balance -250 / -250 925 / 925 Intake: IV Fluids 368 / 368 0.9 % Sodium Chloride 1,000 ML 368 / 368 @ 40 mls/hr IVC .Q24H [facility] Rx#: [id number] Oral 240 / 240 Blood Product 317 / 317 Plasma Unit [id number] 317 / 317 Plasma Unit [id number] 0 / 0 Output: Urine 250 / 250 Other: Weight 71.9 kg Patient Weight 09/12/17 23:59 Weight 71.9 kg General appearance: cooperative, no acute distress, no febrile Exam: chronically ill appearing - Head Head exam: Present: atraumatic - Respiratory Respiratory exam: Present: CTAB. Absent: respiratory distress - Cardiovascular Cardiovascular exam: Present: RRR, +S1, +S2, tachycardia - GI/Abdominal GI/Abdominal exam: Present: normal bowel sounds, soft. Absent: tenderness - Extremities Exam Extremities exam: Present: normal inspection. Absent: calf tenderness - Neurological Exam Neurological exam: Present: alert, oriented X3, no focal deficits, strengths equal and symetr throughout - Psychiatric Psychiatric exam: Present: anxious, depressed - Skin Skin exam: Present: dry, intact, normal color, warm Oncology: Obj Data - Labs CBC & Chem 7: 09/13/17 04:03 09/13/17 04:03 - ABG Interpretation ABG results: PT/INR, D-dimer PT 33.3 Seconds (9.4-12.1) H 09/12/17 06:24 Consult Discharge Plan - Plan Referrals: Amaris Hamilton MD [Primary Care Provider] - Kathi Hernández CNP [Advanced Practice Nurse] - 09/19/17 11:00 am Prescriptions: Ipratropium/Albuterol Neb [Duoneb] 3 ml IH Q6HR PRN 7 Days #28 vial.neb PRN Reason: Shortness Of Breath <Veronica Abraham S - Last Filed: 09/13/17 19:01> Date of Encounter: 09/13/17 - Constitutional Vitals: Vital Signs Temp Pulse Resp BP Pulse Ox 09/12/17 17:45 99.8 F H 103 14 101/69 96 09/12/17 15:44 99.3 F 109 15 103/73 96 09/12/17 15:17 99.3 F 14 14 88/57 96 09/12/17 15:02 98.2 F 105 14 94/67 97 09/12/17 14:00 97.8 F 105 14 101/69 98 09/12/17 11:16 97.3 F L 123 16 79/61 09/12/17 07:45 97.5 F L 90 16 95/69 98 09/12/17 04:31 97.4 F L 93 15 105/72 97 09/11/17 23:37 100.4 F H 120 15 131/68 96 09/11/17 20:22 94 09/11/17 20:16 18 94 09/11/17 18:58 99.1 F 111 15 120/79 96 Intake and Output 09/12/17 09/12/17 09/12/17 07:59 15:59 23:59 Intake Total 925 / 925 301 / 301 Output Total 250 / 250 Balance -250 / -250 925 / 925 301 / 301 Intake: IV Fluids 368 / 368 0.9 % Sodium Chloride 1,000 ML 368 / 368 @ 40 mls/hr IVC .Q24H [facility] Rx#: [id number] Oral 240 / 240 Blood Product 317 / 317 301 / 301 Plasma Unit [id number] 317 / 317 Plasma Unit [id number] 0 / 0 301 / 301 Output: Urine 250 / 250 Other: Stool Size Moderate Stool Consistency liquid # Bowel Movements 1 Weight 71.9 kg Patient Weight 09/12/17 23:59 Weight 71.9 kg Oncology: Obj Data - Labs CBC & Chem 7: 09/13/17 09:51 09/13/17 04:03 Labs: Laboratory Results - last 24 hr 09/11/17 09/12/17 09/12/17 04:56 06:24 06:24 WBC 2.6 L RBC 3.56 L Hgb 9.9 L Hct 29.4 L MCV 82.6 L MCH 27.8 L MCHC 33.7 RDW 15.8 H Plt Count 63 L MPV 12.6 H Seg Neutrophils % 56.0 Band Neutrophils % 10.0 H Lymphocytes % 10.0 Monocytes % 24.0 Neutrophils # 1.7 Lymphocytes # 0.3 L Monocytes # 0.6 Platelet Estimate Decreased L Immature Plt Fraction 9.1 H PT 33.3 H INR 3.0 APTT 67.4 H Sodium Potassium Chloride Carbon Dioxide BUN Creatinine Est GFR ( Amer) Est GFR (Non-Af Amer) BUN/Creatinine Ratio Glucose Calculated Osmolality Calcium Hepatitis A IgM Ab Nonreactive Hep Bs Antigen Nonreactive Hep B Core IgM Ab Nonreactive Hepatitis C Ab Screen Nonreactive 09/12/17 06:24 WBC RBC Hgb Hct MCV MCH MCHC RDW Plt Count MPV Seg Neutrophils % Band Neutrophils % Lymphocytes % Monocytes % Neutrophils # Lymphocytes # Monocytes # Platelet Estimate Immature Plt Fraction PT INR APTT Sodium 129 L Potassium 3.7 Chloride 104 Carbon Dioxide 17 L BUN 24 H Creatinine 0.79 Est GFR ( Amer) > 60 Est GFR (Non-Af Amer) > 60 BUN/Creatinine Ratio 30 H Glucose 111 H Calculated Osmolality 273 L Calcium 8.0 L Hepatitis A IgM Ab Hep Bs Antigen Hep B Core IgM Ab Hepatitis C Ab Screen - ABG Interpretation ABG results: PT/INR, D-dimer PT 33.3 Seconds (9.4-12.1) H 09/12/17 06:24 - Attending Attestation I examined this patient and my medical decision-making was reviewed with the Advanced Practice Nurse. I agree with the documented findings, disposition and treatment plan as described except to the extent set forth below. 1. Pancytopenia dated PT and PTT. Will check d-dimer and fibrinogen make sure she does not have low-grade DIC. She is getting FFP. Because of hypotension and tachycardia bone marrow biopsy has been postponed 2. Ferrell's esophagus by esophageal biopsy 09/04/2017. Start PPI EGD and colonoscopy 09/03/2017 showed diverticulosis. Showed irregular esophageal mucosa 3. She developed tachycardia. Hypotension. Possible pericardial effusion. Cardiology involved
[2017-09-12 19:19] LABS: INR 2.6; Prothrombin Time 28.2 Seconds (9.4-12.1)
[2017-09-12 19:20] LABS: Activated Partial Thrombo Time 44.1 Seconds (26.0-36.0)
[2017-09-12] MEDS ORDERED: Isovue-370 500 ML INFUS..BTL IV ONE (20:55)
[2017-09-12 22:14] LABS: Hematocrit 28.3 % (35.3-44.9)
[2017-09-12] MEDS: traZODone 50 MG TABLET PO SCH (22:26)
[2017-09-12 23:06] LABS: ABG Base Excess -5 mEq/L (-2 to 3); ABG HCO3 18 mEq/L (21-27); ABG Oxygen Saturation 99 % (95-98); ABG PCO2 28 mmHg (35-45); ABG PH 7.42 pH Units (7.32-7.45); ABG PO2 122 mmHg (85-104); ABG TCO2 19 mEq/L (20-26)
[2017-09-12] MEDS ORDERED: 0.9 % Sodium Chloride 500 ML IVC ONE (23:23)
[2017-09-12] MEDS ORDERED: Amiodarone Premix 360 MG/200 ML BAG IVC SCH (23:45)
[2017-09-12] MEDS ORDERED: Amiodarone Premix 150 MG/100 ML BAG IVPB ONE (23:48)
[2017-09-12] MEDS ORDERED: Amiodarone Premix 360 MG/200 ML BAG IVC ONE (23:48)
--- NOTE | 2017-09-13 00:06 | Event Note ---
Date of Encounter: 09/12/17 Time of Encounter: 20:30 Alerted by patient's nurse the patient's heart rate was consistently staying in the 130s to 140s with BP 98/58. Patient admitted with pancytopenia, chronic anemia requiring transfusions, shortness of breath, and concern for possible malignancy. History of CHF. D-dimer today was 1867. Due to concern for PE, CTA of the chest ordered with contrast which showed moderate pericardial effusion, prominent nonspecific mediastinal lymphadenopathy, multiple pulmonary nodules with follow-up in 12 months recommended. Differential considerations include infectious, inflammatory, and neoplastic etiologies. Pt. continues to be hypotensive w/tachycardia. Discussed pt. w/Drs. Amaral and Steve w/ recommendation for 500 mL NS IV fluid bolus once for hypotension and stat EKG which showed sinus tachycardia, possible atrial flutter, and possible anterior myocardial infarction (probably old). Other recommendation is to begin amiodarone drip d/t current HR and hypotension. Spoke w/Bed Management w/plan to transfer pt. to . Concern exists for worsening pericardial effusion and possible cardiac tamponade. Echocardiogram in a.m. should be done. Cardiology consult ordered at 23:50 and requires follow-up in the a.m. On exam, pt. continues to be SOB on 3L via nasal cannula w/SpO2 in high 90s. Stat ABG ordered. Pt. to be monitored closely overnight for signs of increasing respiratory and/or cardiac distress.
[2017-09-13] MEDS: 0.9 % Sodium Chloride 1,000 ML IVC SCH ×2 (01:08→23:30)
[2017-09-13 06:06] LABS: Hematocrit 27.9 % (35.3-44.9); Hemoglobin 9.5 g/dL (11.5-15.4); Immature Platelets 7.3 % (1.1-6.1); Lymphocytes # 0.3 K/mcL (0.6-4.6); Mean Corpuscular HGB Conc 34.1 g/dL (31.6-35.5); Mean Corpuscular Hemoglobin 28.4 pg (28.0-33.3); Mean Corpuscular Volume 83.5 fL (83.0-100.0); Red Blood Count 3.34 M/mcL (3.82-4.97); Red Cell Distribution Width 15.9 % (11.5-14.5)
[2017-09-13 06:09] LABS: BUN/Creatinine Ratio 33 (6-26); Blood Urea Nitrogen 22 mg/dL (8-23); Calcium 8.1 mg/dL (8.6-10.3); Carbon Dioxide 16 mEq/L (23-29); Chloride 105 mEq/L (98-107); Glucose 98 mg/dL (70-105); Osmolality,Calculated 273 (280-300); Potassium 4.1 mEq/L (3.5-5.1); Sodium 130 mEq/L (136-145); eGFR For African Americans > 60 (> 60); eGFR For Non-African Americans > 60 (> 60)
[2017-09-13] MEDS: Levothyroxine 25 MCG TABLET PO SCH (06:32)
[2017-09-13 06:43] LABS: Activated Partial Thrombo Time 53.4 Seconds (26.0-36.0)
[2017-09-13 06:48] LABS: Platelet Count 71 K/mcL (140-400)
[2017-09-13 06:49] LABS: INR 2.5; Prothrombin Time 27.2 Seconds (9.4-12.1)
[2017-09-13 08:38] LABS: Monocytes # 0.1 K/mcL (0.0-1.3); Neutrophils # 2.3 K/mcL (1.6-8.9); Platelet Estimate Decreased (Normal)
[2017-09-13 08:39] LABS: Poikilocytosis 1+ (Not Present)
--- NOTE | 2017-09-13 09:00 | Cardiology Consult Note ---
Date of Encounter: 09/13/17 Time of Encounter: 08:30 Assessment and Plan (1) Sinus tachycardia Current Visit: Yes Status: Acute Reviewed ECG/telemetry with Dr. Hughes, appears to be sinus tachycardia. No evidence of atrial fib/flutter noted. Will stop IV amiodarone. Tachycardia in the setting of anemia. No further testing recommended. (2) Pericardial effusion Current Visit: Yes Status: Acute Moderate pericardial effusion noted on CT scan. Will obtain TTE to further evaluate. (3) Symptomatic anemia Current Visit: Yes Status: Acute Reports initial diagnosis x6 months ago. s/p total of 3 units PRBC. GI evaluation complete, no identified source of bleeding. Hematology following, bone marrow bx to be completed as inpatient. (4) Elevated INR Current Visit: Yes Status: Acute Elevated INR of unclear etiology. Hematology following. Discussion w patient/family: The assessment and plan as outlined above was discussed with the patient and/or family members who expressed understanding and agreement. All questions were answered. Thank you for involving us in the care of your patient. Please call with any questions. The patient will be discussed and reviewed with Dr. Hughes; changes to be made accordingly. History of Present Illness Consult date: 09/13/17 Requesting physician: Kelli Wilson Consult reason: Atrial flutter Chief complaint: Weakness History of present illness: Ms. Burnett is a 67 year old female with PMHx significant for HTN, HLD, remote hx of [place]--was told secondary to pericarditis ~ 25 years ago, and recent pancytopenia who presented to the ED with complaints of fatigue and weakness. Reports initial diagnosis of pancytopenia around 6 months ago, has been following with Oncology/Hematology as outpatient without clear diagnosis. Recently underwent GI work-up which was negative for source of bleeding. Bone marrow bx scheduled in the outpatient setting; however now will be done as inpatient if INR will allow. Hematology consulted as inpatient and following; INR elevated, etiology unclear. Has received total of 3 units of PRBC over the past several weeks and 1 unit of FFP as inpatient. Cardiology consulted overnight for concern of atrial flutter with RVR; she was started on amiodarone gtt and was transferred to . Scheduled for bone marrow biopsy today, however INR elevated, FFP ordered. No prior CV testing noted. Patient denies hx of ischemic evaluation. Past Med Surg Social Fam HX - Past Medical History Attestation: Yes The following information was validated with the patient. Source: patient Medical history: hyperlipidemia, hypertension, myocardial infarction Psychiatric history: no psych history - Past Surgical History Surgical History: no surgical history - Social History Smoking Status: Former smoker Smokeless Tobacco Status: No Alcohol use: none Drug use: none - Family History Mother Living Status: Hx Family Cancer: Yes Medications and Allergies ALPRAZolam [Xanax 0.5 MG Tablet] 0.5 mg PO BID PRN 07/27/17 [History] Atenolol [Tenormin] 50 mg PO DAILY 07/27/17 [History] Cyanocobalamin (B-12) [Vitamin B12] 1,000 mcg IM Q2W 07/27/17 [History] Diclofenac Sodium [Voltaren] 1 appl TP QID PRN 07/27/17 [History] HYDROcodone/Acet 5/325 mg [[place] 5-325 mg] 1 tab PO TID PRN 07/27/17 [History] Nitroglycerin [Nitrostat] 0.4 mg SL Q5M PRN 07/27/17 [History] Ondansetron HCl [Zofran] 4 - 8 mg PO TID PRN 07/27/17 [History] Potassium Chloride [K-Tab ER] 20 meq PO BID 07/27/17 [History] Pravastatin Sodium [Pravachol] 20 mg PO HS 07/27/17 [History] Trazodone HCl 100 mg PO HS 07/27/17 [History] Levothyroxine [Synthroid] 25 mcg PO 0630 08/21/17 [History] [place]-3 Fatty Acids [Fish Oil Concentrate] 2,000 mg PO BID 08/21/17 [History] 3 Allergy/AdvReac Type Severity Reaction Status Date / Time No Known Allergies Allergy Verified 09/10/17 19:44 All Systems Review: The remainder of the systems were reviewed and are negative - Cardiovascular Cardiovascular: as per HPI Physical Examination Vital Signs, Last 4 Hours Temp Pulse Resp BP Pulse Ox 09/13/17 08:24 127/74 09/13/17 07:53 118 09/13/17 07:00 97.8 F 111 24 125/76 99 09/13/17 06:00 110 117/72 96 09/13/17 05:00 101 89/52 96 General: Conversant HEENT: Atraumatic, Normocephaly Cardiac: Reg Rate and Rhythm, Normal S1 and S2 Lungs: Other (few expiratory wheezes noted. ) Neuro: Alert and responsive Abdomen: Soft Skin: No rashes noted on visualized skin Musculoskeletal: No Chest Wall Tenderness Extremities: No Edema, Normal Pulses Results 09/13/17 04:03 09/13/17 04:03 Lab Results 09/12/17 09/12/17 09/12/17 06:24 18:53 18:53 WBC 2.6 L Hgb 9.9 L Hct 29.4 L Plt Count 63 L INR 2.6 APTT 44.1 H D-Dimer 1867 H Sodium Potassium Chloride Carbon Dioxide BUN Creatinine Glucose Calcium 09/12/17 09/13/17 09/13/17 22:04 04:03 04:03 WBC 3.0 L Hgb 10.0 L 9.5 L Hct 28.3 L 27.9 L Plt Count 71 L INR APTT D-Dimer Sodium 130 L Potassium 4.1 Chloride 105 Carbon Dioxide 16 L BUN 22 Creatinine 0.66 Glucose 98 Calcium 8.1 L 09/13/17 04:03 WBC Hgb Hct Plt Count INR 2.5 APTT 53.4 H D-Dimer Sodium Potassium Chloride Carbon Dioxide BUN Creatinine Glucose Calcium - Imaging and Cardiology Other Results: 12 hour tele: avg HR 114. SR. - EKG Interpretation EKG results cardiology: personally reviewed Consult Discharge Plan - Plan Referrals: Amaris Hamilton MD [Primary Care Provider] -
[2017-09-13 10:04] LABS: Hemoglobin 10.9 g/dL (11.5-15.4)
[2017-09-13 10:05] LABS: Hematocrit 32.2 % (35.3-44.9)
--- NOTE | 2017-09-13 15:14 | Electrocardiograph Report ---
[address] [place], [place] [address] Test Date: 2017-09-12 Pat Name: Telma Burnett Department: 112 Room: 2N01 Gender: F [employer] Vp: : 1950 Requested By: [id number] Order Number: [id number] Reading MD: Jessica Christiansen Measurements Intervals [place] Rate: 144 P: 46 OR: 138 QRS: 0 QRSD: 82 T: 120 QT: 275 QTc: 358 Interpretive Statements SINUS TACHYCARDIA POSSIBLE ANTERIOR MYOCARDIAL INFARCTION, PROBABLY OLD ABNORMAL RHYTHM ECG Electronically Signed On 09-13-2017 15:12:54 EDT by Jessica Christiansen
[2017-09-13] MEDS: Metoprolol XL (24 HR) Succ 25 MG TAB.ER.24H PO SCH (15:58)
[2017-09-13 18:16] LABS: APTT (LE Anticoag) 111 sec (32-48); Diluted Russell Viper Venom 38 sec (33-44); LE Coag APTT Mixing 60 sec (32-48); PT (LE-Anticoag) 27.4 sec (12.0-15.5); Thrombin Time 13.4 sec (14.7-19.5)
[2017-09-13] MEDS ORDERED: 0.9 % Sodium Chloride 1,000 ML IVC SCH (19:47)
[2017-09-13] MEDS ORDERED: 0.9 % Sodium Chloride 2,000 ML ONE (19:57)
--- NOTE | 2017-09-13 20:09 | Event Note ---
Date of Encounter: 09/13/17 Time of Encounter: 20:00 - Cardiology Event Note Followup, preliminary TTE findings show Early echo evidence of tamponade with diastolic RV collapse and excessive TV respiratory variation. Contacted [facility] occupational health nurse, Dr Ochoa, and cardiac surgery, Dr. Moses for pericardiocentesis and pericardial window respectively. Informed floor to continue fluids with bolus. Patient is mentating normally, tachycardic with borderline hypotension.
[2017-09-13] MEDS ORDERED: *HR* Phytonadione 5 MG TABLET PO ONE (20:27)
--- NOTE | 2017-09-13 20:34 | Cardiothoracic Consult Note ---
Date of Encounter: 09/13/17 Time of Encounter: 20:32 Assessment and Plan (1) Pericardial effusion Current Visit: Yes Status: Acute The patient is a 67-year-old hypertensive lady with hypercholesterolemia and known CAD who was admitted to [facility] with complaints of fatigue and weakness. She underwent an echocardiogram today which revealed a moderate to large pericardial effusion with evidence of pericardial tamponade. She has RV diastolic collapse with associated tachycardia and hypotension. She has been recommended for urgent subxiphoid pericardial window. Her lab values show an elevated PT/INR and she will receive 2 units FFP and one 6 pack unit platelets intraoperatively. The patient understands the procedure, benefits, alternatives, and risks and gives her informed consent. The assessment and plan as outlined above was discussed with the patient and/or family members who expressed understanding and agreement. All questions were answered. - History of Present Illness Consult date: 09/13/17 Requesting physician: Jaime Hughes Consult reason: Pericardial effusion with evidence of tamponade Chief complaint: Fatigue and weakness History of present illness: Ms. Burnett is a 67 year old hypertensive lady with hypercholesterolemia and remote myocardial infarction was admitted to [facility] on with complaints of fatigue and weakness. She is currently undergoing extensive workup for pancytopenia. She underwent an echocardiogram today which revealed a moderate to large pericardial effusion with evidence of tamponade. She has been recommended for urgent pericardial window. Past Med Surg Social Fam HX - Past Medical History Medical history: hyperlipidemia, hypertension, myocardial infarction Psychiatric history: no psych history - Past Surgical History Surgical History: no surgical history - Social History Smoking Status: Former smoker Packs per day: 1/2PPD X 15 YRS Smokeless Tobacco Status: No Alcohol use: none Drug use: none Occupational status: retired Current living situation: Home - Independent Activity Level: Independent ambulation Recent Out of Country Travel Within the Last 8 Weeks: No Exposure or Possible Exposure to Illness During Travel: No - Family History Mother Living Status: Hx Family Cancer: Yes Medications and Allergies ALPRAZolam [Xanax 0.5 MG Tablet] 0.5 mg PO BID PRN 07/27/17 [History] Atenolol [Tenormin] 50 mg PO DAILY 07/27/17 [History] Cyanocobalamin (B-12) [Vitamin B12] 1,000 mcg IM Q2W 07/27/17 [History] Diclofenac Sodium [Voltaren] 1 appl TP QID PRN 07/27/17 [History] HYDROcodone/Acet 5/325 mg [[place] 5-325 mg] 1 tab PO TID PRN 07/27/17 [History] Nitroglycerin [Nitrostat] 0.4 mg SL Q5M PRN 07/27/17 [History] Ondansetron HCl [Zofran] 4 - 8 mg PO TID PRN 07/27/17 [History] Potassium Chloride [K-Tab ER] 20 meq PO BID 07/27/17 [History] Pravastatin Sodium [Pravachol] 20 mg PO HS 07/27/17 [History] Trazodone HCl 100 mg PO HS 07/27/17 [History] Levothyroxine [Synthroid] 25 mcg PO 0630 08/21/17 [History] [place]-3 Fatty Acids [Fish Oil Concentrate] 2,000 mg PO BID 08/21/17 [History] Ipratropium/Albuterol Neb [Duoneb] 3 ml IH Q6HR PRN 7 Days #28 vial.neb [Rx] 3 Allergy/AdvReac Type Severity Reaction Status Date / Time No Known Allergies Allergy Verified 09/10/17 19:44 All Systems Review: The remainder of the systems were reviewed and are negative Physical Examination Vital Signs, Last 4 Hours Temp Pulse Resp BP Pulse Ox 09/13/17 19:03 97.6 F 125 24 101/59 96 09/13/17 18:50 97.6 F 125 24 101/56 96 General: Conversant, No Apparent Distress HEENT: Atraumatic, Normocephaly, Trachea midline Neck: No JVD, Normal carotid pulses Cardiac: Reg Rate and Rhythm, Normal S1 and S2, No Murmur, Other (Sinus tachycardia) Lungs: Normal Breath Sounds, No Wheeze, Rales, Rhonchi Neuro: Alert and responsive, No focal deficits noted, Motor nerves intact, Sensory nerves intact Vascular: Normal capillary refill Musculoskeletal: No Chest Wall Tenderness Extremities: No Clubbing, No Cyanosis, No Edema Results 09/13/17 09:51 09/13/17 04:03 Lab Results, Last 24 hours 09/12/17 09/13/17 09/13/17 22:04 04:03 04:03 WBC 3.0 L Hgb 10.0 L 9.5 L Hct 28.3 L 27.9 L Plt Count 71 L INR APTT Sodium 130 L Potassium 4.1 Chloride 105 Carbon Dioxide 16 L BUN 22 Creatinine 0.66 Glucose 98 Calcium 8.1 L Troponin I 09/13/17 09/13/17 09/13/17 04:03 09:51 13:16 WBC Hgb 10.9 L Hct 32.2 L Plt Count INR 2.5 APTT 53.4 H Sodium Potassium Chloride Carbon Dioxide BUN Creatinine Glucose Calcium Troponin I < 0.03 - Imaging Chest Xray: image reviewed (Normal cardiac size. No active pulmonary disease.) Consult Discharge Plan - Plan Referrals: Amaris Hamilton MD [Primary Care Provider] - Kathi Hernández CNP [Advanced Practice Nurse] - 09/19/17 11:00 am Prescriptions: Ipratropium/Albuterol Neb [Duoneb] 3 ml IH Q6HR PRN 7 Days #28 vial.neb PRN Reason: Shortness Of Breath
[2017-09-13] MEDS ORDERED: *HR* Rocuronium Bromide 50 MG/5 ML VIAL ONE (20:55)
[2017-09-13] MEDS ORDERED: *HR* Etomidate 20 MG/10 ML AMPUL IVP ONE (20:55)
[2017-09-13] MEDS ORDERED: *HR* PHENYLEPHRINE 1,000 MCG/10 ML SYRINGE IVP ONE (20:55)
[2017-09-13] MEDS ORDERED: *HR* Midazolam HCl 5 MG/5 ML VIAL IVP ONE (20:57)
[2017-09-13] MEDS ORDERED: *HR* FentaNYL (PF) 250 MCG/5 ML VIAL ONE (20:57)
--- NOTE | 2017-09-13 21:05 | Anesthesia Evaluation PreOp ---
Date of Encounter: 09/13/17 Time of Encounter: 21:02 - Past History Planned Operation: pericardial window Cardiac History: CT, HTN, Hyperlipidemia, Other (effusion with tamponade) Pulmonary History: Former smoker, Pack/yr (15pk yr) DISPATCHER RADIOACTIVE WASTE DISPOSAL History: Denies Any Significant HX Other Medical History: Thyroid (hypo) Anesthesia History: Past Anesthesia (denies PSH) Alcohol Use: none Drug use: none Medications and Allergies ALPRAZolam [Xanax 0.5 MG Tablet] 0.5 mg PO BID PRN 07/27/17 [History] Atenolol [Tenormin] 50 mg PO DAILY 07/27/17 [History] Cyanocobalamin (B-12) [Vitamin B12] 1,000 mcg IM Q2W 07/27/17 [History] Diclofenac Sodium [Voltaren] 1 appl TP QID PRN 07/27/17 [History] HYDROcodone/Acet 5/325 mg [[place] 5-325 mg] 1 tab PO TID PRN 07/27/17 [History] Nitroglycerin [Nitrostat] 0.4 mg SL Q5M PRN 07/27/17 [History] Ondansetron HCl [Zofran] 4 - 8 mg PO TID PRN 07/27/17 [History] Potassium Chloride [K-Tab ER] 20 meq PO BID 07/27/17 [History] Pravastatin Sodium [Pravachol] 20 mg PO HS 07/27/17 [History] Trazodone HCl 100 mg PO HS 07/27/17 [History] Levothyroxine [Synthroid] 25 mcg PO 0630 08/21/17 [History] [place]-3 Fatty Acids [Fish Oil Concentrate] 2,000 mg PO BID 08/21/17 [History] Ipratropium/Albuterol Neb [Duoneb] 3 ml IH Q6HR PRN 7 Days #28 vial.neb [Rx] 3 Allergy/AdvReac Type Severity Reaction Status Date / Time No Known Allergies Allergy Verified 09/10/17 19:44 - Meds/Allergy Pre-op Review Medications Reviewed: Yes Allergies Reviewed: Yes Beta Blockers on Current Med List: No Anesthesia Results - Labs 09/13/17 09:51 09/13/17 04:03 - Imaging EKG: report reviewed (SINUS TACHYCARDIA POSSIBLE ANTERIOR MYOCARDIAL INFARCTION , PROBABLY OLD ABNORMAL RHYTHM ECG) Anesthesia Exam Selected Entries 09/13/17 21:03 Temperature 97.9 F Pulse Rate 120 Blood Pressure 108/70 O2 Sat by Pulse Oximetry 96 Oxygen Delivery Method Room Air - HEENT Pupil (Motor): EOMI Mallampati: II Teeth: Missing, Poor dentition Oral Opening: Greater than 3 - DISPATCHER RADIOACTIVE WASTE DISPOSAL LOC: Oriented DISPATCHER RADIOACTIVE WASTE DISPOSAL Motor: Normal RUE, Normal LUE, Normal RLE, Normal LLE, Normal Face DISPATCHER RADIOACTIVE WASTE DISPOSAL Sensory: Normal: RUE, LUE, RLE, LLE, Face - Cardiac Rhythm: Regular (tachy) Murmur: None - Pulmonary Breath Sounds: bilateral Clear Respiratory Effort: Symmetrical Anesthesia Assess/Plan ASA Score: 4, E Modified [place] Scale for Level of Consciousness: Cooperative, oriented, and tranquil Anesthetic Plan: General Monitoring Plan: Standard Monitors, A-Line, CVC Recovery Plan: ICU
[2017-09-13] MEDS ORDERED: ceFAZolin 2,000 MG in 0.9 % Sodium Chloride 100 ML IVP ONE (21:12)
--- NOTE | 2017-09-13 21:16 | Internal Med Progress Note ---
Date of Encounter: 09/13/17 Time of Encounter: 12:57 - Assessment and plan (1) Symptomatic anemia Current Visit: Yes Status: Acute Assessment and plan: Symptoms improved s/p 2 units PRBC. Hemoglobin this AM up to 10.9. Transfuse to keep hemoglobin > 10.0. Pancytopenia workup with heme/onc consult and plan for bone marrow biopsy at some point - now maybe considering getting it done as outpatient. Appreciate heme/onc input and will get their final recommendations at discharge. Will continue IVF at low rate as per below. Continue vitamin B12 supplementation. Recheck CBC in AM. (2) Chronic blood loss anemia Current Visit: Yes Status: Chronic Assessment and plan: Management as per above. (3) Pancytopenia Current Visit: Yes Status: Chronic Assessment and plan: Heme/onc consulted; appreciate input. Plan as per above. (4) Hypotension Current Visit: Yes Status: Resolved Assessment and plan: BP worse overnight. Transferred to step down unit. Continue to treat anemia as per above. Gentle IVF as per below. Continue to treat sinus tachycardia as per below. Cardiology consulted; appreciate input. Continue to hold home atenolol for now. Qualifiers: Hypotension type: unspecified hypotension type Qualified Code(s): I95.9 - Hypotension, unspecified (5) Chronic kidney disease Current Visit: Yes Status: Chronic Assessment and plan: History of CKD stage III. Creatinine WNL at this time. Recheck BMP in AM. Qualifiers: Chronic kidney disease stage: stage 3 (moderate) Qualified Code(s): N18.3 - Chronic kidney disease, stage 3 (moderate) (6) Weakness Current Visit: Yes Status: Acute Assessment and plan: Addressing anemia as per above. PT/OT consulted. (7) Hypothyroidism Current Visit: Yes Status: Chronic Assessment and plan: Continue home medications. Qualifiers: Hypothyroidism type: unspecified Qualified Code(s): E03.9 - Hypothyroidism , unspecified (8) Hyponatremia Current Visit: Yes Status: Acute Assessment and plan: Improved. Likely secondary to decreased oral intake. Continue gentle hydration with IV NS at 40 ml/hr. Consult representative government relations. (9) Elevated INR Current Visit: Yes Status: Acute Assessment and plan: INR 2.5 today. Will need 1.5 for bone marrow biopsy. Consider FFP if not normalizing and heme/onc wants to do BM biopsy as inpatient. (10) Falls Current Visit: Yes Status: Chronic Assessment and plan: Addressing anemia as per above. PT/OT consulted. Qualifiers: Encounter type: sequela Qualified Code(s): W19.XXXS - Unspecified fall, sequela (11) Sinus tachycardia Current Visit: Yes Status: Acute Assessment and plan: Improved on amiodarone drip. Cardiology consulted; appreciate input. Concern for worsening pericardial effusion/cardiac tamponade. Repeat ECHO pending. Will await cardiology recommendations. (12) DVT prophylaxis Current Visit: Yes Status: Acute Assessment and plan: Continue SCDs. - Time Spent With Patient Total time spent is greater than 50% in coordination of care (as documented) at patient's floor/unit and/or counseling patient: less than 15 minutes - Subjective Interval history: Patient had hypotension with tachycardia overnight. EKG at the time showed sinus tachycardia, possible atrial flutter, and possible anterior myocardial infarction (probably old). She was transferred to step down unit overnight and started on amiodarone drip. Cardiology was consulted due to concern for worsening pericardial effusion/cardiac tamponade. She states that she is feeling somewhat better this AM, but still feeling like she did when she had "last heart attack." She denies louise chest pain, SOB, fever, chills, nausea, or vomiting. She has no discrete complaints at this time. - Constitutional Vitals: Temp Pulse Resp BP Pulse Ox 97.9 F 120 24 108/70 96 09/13/17 21:03 09/13/17 21:03 09/13/17 19:03 09/13/17 21:03 09/13/17 21:03 General appearance: Present: cooperative, A&O X 3, pleasant, no acute distress, answers questions appropriately - Respiratory Respiratory exam: Present: CTAB. Absent: accessory muscle use, rales, rhonchi, wheezes Additional comments: Normal WOB - Cardiovascular Cardiovascular exam: Present: RRR, +S1, +S2. Absent: diastolic murmur, gallop, rubs, systolic murmur Additional comments: No BLE edema - GI/Abdominal GI/Abdominal exam: Present: normal bowel sounds, soft. Absent: distended, hepatomegaly, mass, splenomegaly, tenderness - Psychiatric Psychiatric exam: Present: normal affect, normal mood. Absent: agitated, anxious, depressed - Skin Skin exam: Present: dry, intact, warm. Absent: cyanosis, rash Internal Medicine: Result - Labs CBC & Chem 7: 09/13/17 09:51 09/13/17 04:03 Labs: Short CBC 09/12/17 09/13/17 09/13/17 Range/Units 22:04 04:03 09:51 WBC 3.0 L (4.3-11.1) K/mcL Hgb 10.0 L 9.5 L 10.9 L (11.5-15.4) g/dL Hct 28.3 L 27.9 L 32.2 L (35.3-44.9) % Plt Count 71 L (140-400) K/mcL Neutrophils # 2.3 (1.6-8.9) K/mcL BMP 09/13/17 04:03 Sodium 130 L Potassium 4.1 Chloride 105 Carbon Dioxide 16 L BUN 22 Creatinine 0.66 Glucose 98 Calcium 8.1 L Cardiac Enzymes 09/13/17 Range/Units 13:16 Troponin I < 0.03 (< 0.04) ng/mL - ABG Interpretation ABG results: ABG ABG pH 7.42 pH Units (7.32-7.45) 09/12/17 23:03 ABG pCO2 28 mmHg (35-45) L 09/12/17 23:03 ABG pO2 122 mmHg (85-104) H 09/12/17 23:03 ABG O2 Saturation 99 % (95-98) H 09/12/17 23:03 PT/INR, D-dimer PT 27.2 Seconds (9.4-12.1) H 09/13/17 04:03 D-Dimer 1867 ng/mLFEU (0-500) H 09/12/17 18:53 - Impressions Impressions Chest CTA 09/12/17 20:55 IMPRESSION: Moderate pericardial effusion. Prominent nonspecific mediastinal lymphadenopathy. Multiple pulmonary nodules. Follow-up in 12 months recommended as below. Differential considerations include infectious, inflammatory, and neoplastic etiologies. RECOMMENDATIONS: Fleischner Society guidelines for follow-up and management of incidentally detected pulmonary nodules: Single Solid Nodule: Nodule size less than 6 mm In a low-risk patient, no routine follow-up. In a high-risk patient, optional CT at 12 months. Nodule size equals 6-8 mm In a low-risk patient, CT at 6-12 months, then consider CT at 18-24 months. In a high-risk patient, CT at 6-12 months, then CT at 18-24 months. Nodule size greater than 8 mm In a low-risk patient, consider CT at 3 months, PET/CT, or tissue sampling. In a high-risk patient, consider CT at 3 months, PET/CT, or tissue sampling. Multiple Solid Nodules: Nodule size less than 6 mm In a low-risk patient, no routine follow-up. In a high-risk patient, optional CT at 12 months. Nodule size equals 6-8 mm In a low-risk patient, CT at 3-6 months, then consider CT at 18-24 months. In a high-risk patient, CT at 3-6 months, then CT at 18-24 months. Nodule size greater than 8 mm In a low-risk patient, CT at 3-6 months, then consider CT at 18-24 months. In a high-risk patient, CT at 3-6 months, then CT at 18-24 months. - Low risk patients include individuals with minimal or absent history of smoking and other known risk factors. - High risk patients include individuals with a history or smoking or known risk factors. Radiology 2017 http://pubs.rsna.org/doi/full/10.1148/radiol.3133513892 D/ / Emre Novoa MD / Emre Novoa MD Interpreting Provider: Emre Novoa MD - VTE Reasons for not Prescribing Prophylaxis: Medical contraindication (Chronic Blood Loss Anemia) Documentation of Mechanical Device: Intermittent pneumatic compression device Consult Discharge Plan - Plan Referrals: Amaris Hamilton MD [Primary Care Provider] - Kathi Hernández CNP [Advanced Practice Nurse] - 09/19/17 11:00 am Prescriptions: Ipratropium/Albuterol Neb [Duoneb] 3 ml IH Q6HR PRN 7 Days #28 vial.neb PRN Reason: Shortness Of Breath
[2017-09-13] MEDS: traZODone 50 MG TABLET PO SCH (22:39)
--- NOTE | 2017-09-13 22:46 | Operative Note ---
Date of procedure: 09/13/17 Pre-op diagnosis: Pericardial effusion with evidence of pericardial tamponade Post-op diagnosis: same Procedure: 1. Subxiphoid pericardial window. 2. Anterior pericardial resection. Implants: None. Complications: None. Anesthesia: JANUARY Surgeon: Lorenzo Moses Was there an or assistant present: No Estimated blood loss (cc): 5 Specimen: 1. Pericardial fluid 2. Anterior pericardium Condition: stable Disposition: ICU Procedure in Detail: INDICATIONS FOR OPERATION: The patient is a 67-year-old lady who was recently diagnosed with pancytopenia. She has got undergone an extensive hematologic workup. She was admitted to [facility] on 09/10/2017 with complaints of fatigue and weakness. She developed sinus tachycardia early this morning and underwent a transthoracic echocardiogram. This revealed evidence of a moderate to large pericardial effusion and evidence of early tamponade physiology. She was recommended for urgent subxiphoid pericardial window. FINDINGS AT OPERATION: The pericardial fluid was yellow and slightly turbid. Approximately 200 mL of pericardial fluid was withdrawn from the pericardial sac. No other abdomen mild tissue noted. DESCRIPTION OF OPERATION: After obtaining informed operative consent from the patient, she was taken to the operative tumor satisfactory general tracheal anesthetic was induced. Propria monitor lines placed, and the patient's chest and upper abdomen were prepped and draped in a sterile fashion. A vertical incision was then made through the skin and subcutaneous tissue over the xiphoid process. The xiphoid was lifted did anteriorly and the pericardial sac was identified. The pericardium was opened with a 15 blade and approximately 200 mL of yellow turbid fluid was withdrawn. A portion of this fluid was sent for CBC, glucose, LDH, total protein, cultures (including aerobic , anaerobic, fungal, and TB), and cytology. A portion of the anterior pericardium was resected using electrocautery and sent for permanent section. A 32-Syriac right angle chest tube was then placed along the diaphragm. The chest tube was secured to the abdominal wall using an interrupted 0 silk suture. The rectus abdominis fascia simultaneous tissue, and skin edges were reapproximated a running Vicryl sutures. Sterile dressings were applied. The patient was transferred to the ICU in satisfactory postoperative condition. There were no intraoperative complications, and the instrument, needle, and sponge count were corrected and of operation.
[2017-09-13] MEDS ORDERED: Sennosides 8.6 MG TABLET PO PRN (22:47)
[2017-09-13] MEDS ORDERED: Ondansetron 4 MG/2 ML VIAL IVP PRN (22:47)
[2017-09-13] MEDS ORDERED: *HR* FentaNYL (PF) 100 MCG/2 ML VIAL IVP PRN (22:51)
[2017-09-13] MEDS: Dexmedetomidine HCl 400 MCG/100 ML MLS IVC SCH (23:20)
[2017-09-13] MEDS ORDERED: Dexmedetomidine HCl 400 MCG/100 ML MLS IVC ONE (23:22)
[2017-09-13 23:24] LABS: Appearance of Pericardial Fl Cloudy (Clear)
[2017-09-13 23:39] LABS: ABG Base Excess -8 mEq/L (-2 to 3); ABG HCO3 16 mEq/L (21-27); ABG Oxygen Saturation 100 % (95-98); ABG PCO2 27 mmHg (35-45); ABG PH 7.38 pH Units (7.32-7.45); ABG PO2 487 mmHg (85-104); ABG TCO2 17 mEq/L (20-26); Blood Gas Modality VC; Blood Gas PEEP 5 cm H2O; Blood Gas Respiration Rate 14; Blood Gas VT 500 cc
[2017-09-14] LABS: Glucose,Pericardial Fluid 106 mg/dL (No Ref Range)
[2017-09-14] MEDS: CeFAZolin Pre 2,000 MG/100 ML 2,000 MG/100 ML BAG IVPB SCH ×2 (00:10→09:36)
[2017-09-14] MEDS: FentaNYL (PF) 1,000 MCG in 0.9 % Sodium Chloride 80 ML IVC SCH ×2 (00:16→21:10)
[2017-09-14] MEDS: Levothyroxine 25 MCG TABLET PO SCH (03:23)
[2017-09-14 03:34] LABS: Hematocrit 23.2 % (35.3-44.9); Mean Corpuscular HGB Conc 34.1 g/dL (31.6-35.5)
[2017-09-14 03:36] LABS: Hemoglobin 7.9 g/dL (11.5-15.4); Immature Platelets 4.8 % (1.1-6.1); Mean Corpuscular Hemoglobin 28.2 pg (28.0-33.3); Mean Corpuscular Volume 82.9 fL (83.0-100.0); Mean Platelet Volume 11.4 fL (9.4-12.4); Nucleated Red Blood Cells 0.9 /100 WBC (0); Red Cell Distribution Width 15.6 % (11.5-14.5)
[2017-09-14 03:38] LABS: BUN/Creatinine Ratio 27 (6-26); Blood Urea Nitrogen 20 mg/dL (8-23); Calcium 7.8 mg/dL (8.6-10.3); Carbon Dioxide 17 mEq/L (23-29); Chloride 107 mEq/L (98-107); Glucose 115 mg/dL (70-105); Osmolality,Calculated 278 (280-300); Potassium 3.9 mEq/L (3.5-5.1); Sodium 132 mEq/L (136-145); eGFR For African Americans > 60 (> 60); eGFR For Non-African Americans > 60 (> 60)
[2017-09-14 03:46] LABS: Platelet Count 83 K/mcL (140-400)
[2017-09-14 04:17] LABS: Lymphocytes # 0.7 K/mcL (0.6-4.6); Monocytes # 0.4 K/mcL (0.0-1.3); Neutrophils # 1.1 K/mcL (1.6-8.9); Platelet Estimate Decreased (Normal)
[2017-09-14 04:18] LABS: Hypochromasia Present (Not Present)
[2017-09-14 04:38] LABS: ABG Base Excess -4 mEq/L (-2 to 3); ABG HCO3 20 mEq/L (21-27); ABG Oxygen Saturation 100 % (95-98); ABG PCO2 34 mmHg (35-45); ABG PH 7.39 pH Units (7.32-7.45); ABG PO2 217 mmHg (85-104); ABG TCO2 21 mEq/L (20-26); Blood Gas Modality VC; Blood Gas PEEP 5 cm H2O; Blood Gas Respiration Rate 14; Blood Gas VT 500 cc
[2017-09-14] MEDS: Metoprolol XL (24 HR) Succ 25 MG TAB.ER.24H PO SCH (08:22)
--- NOTE | 2017-09-14 08:25 | Anesthesia Evaluation Post Op ---
Date of Encounter: 09/14/17 Time of Encounter: 07:50 - Vital Signs Vital Signs: Selected Entries 09/14/17 07:10 09/14/17 08:00 Temperature 97.3 F L Pulse Rate 80 Respiratory Rate 18 Blood Pressure 95/49 O2 Sat by Pulse Oximetry 100 Fraction of Inspired Oxygen % 40 Oxygen Delivery Method Mechanical Ventilation - Lungs Lungs: Clear Ascult./Percussion - Airway Airway: Intubated - Cardiovascular Regular Rate - Mental Status Mental Status: Sedated - Pain Pain Scale used: Unable to assess - Hydration Hydration: NPO, Cervantes catheter Notes: 09/14/17 08:24 POPD#1 pericardial window. Still intubated. Still hypotensive but tachycardia has resolved. Remains pancytopenic. 09/14/17 08:25
--- NOTE | 2017-09-14 09:10 | Cardiothoracic Progress Note ---
Date of Encounter: 09/14/17 Time of Encounter: 09:07 - Assessment and plan (1) Pericardial effusion Current Visit: Yes Status: Acute The patient is recovering well from her subxiphoid pericardial window. She remained hemodynamically stable overnight. She remains intubated; however, is awake and appropriate. Attempts will made to extubate the patient later today. The assessment and plan as outlined above was discussed with the patient and/ or family members who expressed understanding and agreement. All questions were answered. - Subjective Procedure(s) Performed: POD#1 S/P Subxiphoid pericardial window Interval history: The patient remained hemodynamic stable overnight. She remains intubated; however, is awake and appropriate. Vital Signs, Last 4 Hours Temp Pulse Resp BP Pulse Ox 09/14/17 08:20 14 94/49 100 09/14/17 08:00 80 18 95/49 100 09/14/17 07:53 82 09/14/17 07:10 97.3 F L 09/14/17 07:00 82 09/14/17 06:04 14 100 09/14/17 06:00 78 15 94/49 100 Oxgyen Flow Rate Oxygen Flow Rate (LPM) 3 Clinical Data, last 8 Hours Output, Chest Tube Drainage 50 Amount [Mediastinal #1] Output, Chest Tube Drainage 50 Amount [Mediastinal #1] Weight 09/12/17 09/13/17 09/14/17 23:59 23:59 23:59 Weight 71.9 kg 75.5 kg - Physical Examination General: No Apparent Distress, Other (Intubated, but awake and appropriate.) Neck: No JVD, Normal carotid pulses Cardiac: Reg Rate and Rhythm, Normal S1 and S2, No Murmur Incision: No signs of infection, Dry/intact dressing Chest tubes: Minimal drainage, Other (No air leak) Lungs: Normal Breath Sounds, No Wheeze, Rales, Rhonchi Neuro: Alert and responsive, No focal deficits noted Vascular: Normal capillary refill Extremities: No Clubbing, No Cyanosis, No Edema - Labs 09/14/17 03:08 09/14/17 03:08 Lab Results, Last 24 hours 09/13/17 09/13/17 09/14/17 09:51 13:16 03:08 WBC 2.2 L Hgb 10.9 L 7.9 L D Hct 32.2 L 23.2 L Plt Count 83 L Sodium Potassium Chloride Carbon Dioxide BUN Creatinine Glucose Calcium Troponin I < 0.03 09/14/17 03:08 WBC Hgb Hct Plt Count Sodium 132 L Potassium 3.9 Chloride 107 Carbon Dioxide 17 L BUN 20 Creatinine 0.73 Glucose 115 H Calcium 7.8 L Troponin I - Imaging Chest Xray: image reviewed (No pneumothorax. Minimal atelectasis/infiltrates.) - VTE Reasons for not Prescribing Prophylaxis: Medical contraindication (Chronic Blood Loss Anemia) Documentation of Mechanical Device: Intermittent pneumatic compression device Consult Discharge Plan - Plan Referrals: Amaris Hamilton MD [Primary Care Provider] - Kathi Hernández CNP [Advanced Practice Nurse] - 09/19/17 11:00 am Prescriptions: Ipratropium/Albuterol Neb [Duoneb] 3 ml IH Q6HR PRN 7 Days #28 vial.neb PRN Reason: Shortness Of Breath
--- NOTE | 2017-09-14 10:15 | Cardiology Progress Note ---
Date of Encounter: 09/14/17 Time of Encounter: 09:30 Assessment and Plan (1) Cardiac tamponade Current Visit: Yes Status: Acute Found to have early tamponade with early diastolic RV collapse on review of TTE by cardiology team. S/p emergent pericardial window. TTE- LVEF 65%. Normal LV chamber size, wall thickness and function. Indeterminate diastolic function. Normal right ventricular structure and function. No significant valvular dysfunction. There is a pericaridal effusion present, which is small to moderate anteriorly and trivial elsewhere. No evidence of tamponade per report. Upon further review of echo by rounding physician, Dr. Hughes and reader Dr. Christiansen yesterday patient determined to have RV collapse, early signs of tamponade. 200 ml removed from pericardial sac during surgery. Possible extubation later today. Critical care team consulted. CT surgery following. Cardiology originally consulted for possible atrial flutter. Found to have sinus tachycardia in the setting of tamponade and anemia. Nor NSR. Cardiology will sign off, please call with questions. (2) Acute anemia Current Visit: Yes Status: Acute Acute on chronic anemia noted prior to surgery. Hospitalist following. (3) Elevated INR Current Visit: Yes Status: Acute Elevated INR of unclear etiology. Hematology following. (4) Sinus tachycardia Current Visit: Yes Status: Acute Cardiology initially consulted for atrial tachycardia. Found to have sinus tachycardia in the setting of tamponade. Sinus tachycardia now resolved. Telemetry review shows avg HR 82 bpm. Discussion w patient/family: The assessment and plan as outlined above was discussed with the patient and/or family members who expressed understanding and agreement. All questions were answered. Thank you for involving us in the care of your patient. Please call with any questions. Subjective Principal diagnosis: cardiac tamponade Interval history: Ms. Burnett is s/p pericardial window. On my exam she continues to be intubated with ventilator support. Patient is restless and coughing. Nurse at bedside states that she is only on small amount of sedation due to low blood pressure and he is awaiting orders for c-pap trial and extubation. When asked if in pain patient shakes head yes. Currently on fentanyl gtt. Objective Vital Signs, Last 4 Hours Temp Pulse Resp BP Pulse Ox 09/14/17 10:00 84 20 84/45 100 09/14/17 09:00 81 20 87/44 100 09/14/17 08:20 14 94/49 100 09/14/17 08:00 80 18 95/49 100 09/14/17 07:53 82 09/14/17 07:10 97.3 F L 09/14/17 07:00 82 General: Other (Intubated and mildly sedated) HEENT: Atraumatic, Normocephaly, Mucus Membranes Moist Neck: No JVD, Normal carotid pulses Cardiac: Reg Rate and Rhythm, Normal S1 and S2, No Murmur Lungs: Normal Breath Sounds, No Wheeze, Rales, Rhonchi Neuro: Alert and responsive, No focal deficits noted Abdomen: Soft, Non-Tender Skin: No rashes noted on visualized skin Musculoskeletal: No Chest Wall Tenderness Extremities: Other (1-2 + snkle edema. ) Results 09/14/17 03:08 09/14/17 03:08 Lab Results 09/13/17 09/14/17 09/14/17 13:16 03:08 03:08 WBC 2.2 L Hgb 7.9 L D Hct 23.2 L Plt Count 83 L Sodium 132 L Potassium 3.9 Chloride 107 Carbon Dioxide 17 L BUN 20 Creatinine 0.73 Glucose 115 H Calcium 7.8 L Troponin I < 0.03 - Imaging and Cardiology Echo: report reviewed - EKG Interpretation EKG results cardiology: personally reviewed - VTE Reasons for not Prescribing Prophylaxis: Medical contraindication (Chronic Blood Loss Anemia) Documentation of Mechanical Device: Intermittent pneumatic compression device Consult Discharge Plan - Plan Referrals: Amaris Hamilton MD [Primary Care Provider] - Kathi Hernández CNP [Advanced Practice Nurse] - 09/19/17 11:00 am Prescriptions: Ipratropium/Albuterol Neb [Duoneb] 3 ml IH Q6HR PRN 7 Days #28 vial.neb PRN Reason: Shortness Of Breath
--- NOTE | 2017-09-14 11:03 | Pulmonology Consult Note ---
<Sheryl Kennedy M - Last Filed: 09/14/17 12:53> Date of Encounter: 09/14/17 Medications and Allergies ALPRAZolam [Xanax 0.5 MG Tablet] 0.5 mg PO BID PRN 07/27/17 [History] Atenolol [Tenormin] 50 mg PO DAILY 07/27/17 [History] Cyanocobalamin (B-12) [Vitamin B12] 1,000 mcg IM Q2W 07/27/17 [History] Diclofenac Sodium [Voltaren] 1 appl TP QID PRN 07/27/17 [History] HYDROcodone/Acet 5/325 mg [[place] 5-325 mg] 1 tab PO TID PRN 07/27/17 [History] Nitroglycerin [Nitrostat] 0.4 mg SL Q5M PRN 07/27/17 [History] Ondansetron HCl [Zofran] 4 - 8 mg PO TID PRN 07/27/17 [History] Potassium Chloride [K-Tab ER] 20 meq PO BID 07/27/17 [History] Pravastatin Sodium [Pravachol] 20 mg PO HS 07/27/17 [History] Trazodone HCl 100 mg PO HS 07/27/17 [History] Levothyroxine [Synthroid] 25 mcg PO 0630 08/21/17 [History] Spring-3 Fatty Acids [Fish Oil Concentrate] 2,000 mg PO BID 08/21/17 [History] Ipratropium/Albuterol Neb [Duoneb] 3 ml IH Q6HR PRN 7 Days #28 vial.neb [Rx] 3 Allergy/AdvReac Type Severity Reaction Status Date / Time No Known Allergies Allergy Verified 09/10/17 19:44 All Systems: The remainder of the systems were reviewed and are negative Physical Examination Vital Signs: Vital Signs, Last 4 Hours Temp Pulse Resp BP Pulse Ox 09/14/17 11:42 105 09/14/17 11:03 100 09/14/17 11:00 97.9 F 96 22 87/49 100 09/14/17 10:42 24 84/43 100 09/14/17 10:00 84 20 84/45 100 09/14/17 09:00 81 20 87/44 100 Ventilator Settings Ventilator Settings: Ventilator Settings, Last 8 Hours Ventilator Mode VC+ Ventilator Mode VC+ Ventilator Mode VC+ Ventilator Tidal Volume 500 Setting Ventilator Tidal Volume 500 Setting Ventilator Tidal Volume 500 Setting Ventilator Tidal Volume 500 Setting Ventilator Tidal Volume 500 Setting Ventilator Respiratory Rate 14 Setting Ventilator Respiratory Rate 14 Setting Ventilator Respiratory Rate 14 Setting Ventilator Respiratory Rate 14 Setting Ventilator Respiratory Rate 14 Setting Actual Respiratory Rate 24 Actual Respiratory Rate 14 Actual Respiratory Rate 18 Actual Respiratory Rate 14 Actual Respiratory Rate 15 Actual Respiratory Rate 14 Positive End Expiratory 5 Pressure Positive End Expiratory 5 Pressure Positive End Expiratory 5 Pressure Positive End Expiratory 5 Pressure Positive End Expiratory 5 Pressure Positive End Expiratory 5 Pressure Peak Inspiratory Airway 14 Pressure Peak Inspiratory Airway 32 Pressure Peak Inspiratory Airway 32 Pressure Peak Inspiratory Airway 29 Pressure Peak Inspiratory Airway 30 Pressure Peak Inspiratory Airway 28 Pressure Results - Laboratory Findings CBC and BMP: 09/14/17 03:08 09/14/17 03:08 ABG ABG pH 7.39 pH Units (7.32-7.45) 09/14/17 04:34 ABG pCO2 34 mmHg (35-45) L 09/14/17 04:34 ABG pO2 217 mmHg (85-104) H D 09/14/17 04:34 ABG O2 Saturation 100 % (95-98) H 09/14/17 04:34 PT/INR, D-dimer PT 27.2 Seconds (9.4-12.1) H 09/13/17 04:03 D-Dimer 1867 ng/mLFEU (0-500) H 09/12/17 18:53 Abnormal lab findings: Abnormal lab results WBC 2.2 K/mcL (4.3-11.1) L 09/14/17 03:08 RBC 2.80 M/mcL (3.82-4.97) L 09/14/17 03:08 Hgb 7.9 g/dL (11.5-15.4) L D 09/14/17 03:08 Hct 23.2 % (35.3-44.9) L 09/14/17 03:08 MCV 82.9 fL (83.0-100.0) L 09/14/17 03:08 RDW 15.6 % (11.5-14.5) H 09/14/17 03:08 Plt Count 83 K/mcL (140-400) L 09/14/17 03:08 Metamyelocytes % 2.0 % (0) H 09/13/17 04:03 Myelocytes % 8.0 % (0) H 09/13/17 04:03 Neutrophils # 1.1 K/mcL (1.6-8.9) L 09/14/17 03:08 Nucleated RBCs/100 WBC 0.9 /100 WBC (0) H 09/14/17 03:08 Platelet Estimate Decreased (Normal) L 09/14/17 03:08 Hypochromasia Present (Not Present) A 09/14/17 03:08 Poikilocytosis 1+ (Not Present) A 09/13/17 04:03 PT 27.2 Seconds (9.4-12.1) H 09/13/17 04:03 PT Inhibitor Screen 27.8 sec (12.0-15.5) H 09/11/17 12:58 APTT 53.4 Seconds (26.0-36.0) H 09/13/17 04:03 PTT Inhibitor 101 sec (32-48) H 09/11/17 12:58 PTT Patient/Normal 1:1 59 sec (32-48) H 09/11/17 12:58 Thrombin Time 13.4 sec (14.7-19.5) L 09/11/17 12:58 Fibrinogen 563 mg/dL (169-393) H 09/12/17 18:53 D-Dimer 1867 ng/mLFEU (0-500) H 09/12/17 18:53 Plt Neutralization POSITIVE (Negative) A 09/11/17 12:58 Lupus Anticoag INR 27.4 sec (12.0-15.5) H 09/11/17 12:58 Lupus Anticoag aPTT 111 sec (32-48) H 09/11/17 12:58 LA PTT Mix Pt/Norm 1:1 60 sec (32-48) H 09/11/17 12:58 Factor VII 19 % (80-181) L 09/11/17 12:58 ABG pCO2 34 mmHg (35-45) L 09/14/17 04:34 ABG pO2 217 mmHg (85-104) H D 09/14/17 04:34 ABG HCO3 20 mEq/L (21-27) L 09/14/17 04:34 ABG O2 Saturation 100 % (95-98) H 09/14/17 04:34 ABG Base Excess -4 mEq/L (-2 to 3) L 09/14/17 04:34 Sodium 132 mEq/L (136-145) L 09/14/17 03:08 Carbon Dioxide 17 mEq/L (23-29) L 09/14/17 03:08 BUN/Creatinine Ratio 27 (6-26) H 09/14/17 03:08 Glucose 115 mg/dL (70-105) H 09/14/17 03:08 POC Glucose 113 mg/dL (70-99) H 09/13/17 22:48 Calculated Osmolality 278 (280-300) L 09/14/17 03:08 Calcium 7.8 mg/dL (8.6-10.3) L 09/14/17 03:08 Total Bilirubin 3.0 mg/dL (0.3-1.0) H 09/11/17 04:56 Direct Bilirubin 1.5 mg/dL (0.0-0.2) H 09/10/17 17:24 AST 10 Units/L (13-39) L 09/11/17 04:56 ALT 4 Units/L (7-52) L 09/11/17 04:56 Alkaline Phosphatase 115 Units/L (34-104) H 09/11/17 04:56 Serum Total Protein 4.6 g/dL (6.4-8.9) L 09/11/17 04:56 Albumin 2.3 g/dL (3.5-5.7) L 09/11/17 04:56 Globulin 2.3 g/dL (2.4-3.5) L 09/11/17 04:56 Albumin/Globulin Ratio 1.0 (1.1-2.2) L 09/11/17 04:56 Urine Color [place] (Yellow) A 09/10/17 17:41 Urine Clarity Cloudy (Clear) A 09/10/17 17:41 Urine Protein 30 mg/dL (Neg-Trace) H 09/10/17 17:41 Urine Ketones Trace mg/dL (Negative) H 09/10/17 17:41 Urine Nitrite Positive (Negative) A 09/10/17 17:41 Urine Bilirubin Moderate (Negative) H 09/10/17 17:41 Urine Urobilinogen 4.0 mg/dL (Normal) H 09/10/17 17:41 Ur Leukocyte Esterase Small (Negative) H 09/10/17 17:41 Urine Microscopic WBC 3-5 per hpf (0-3) H 09/10/17 17:41 Ur Squamous Epith Cells Many per lpf (None-Few) H 09/10/17 17:41 Granular Casts Few per lpf (None Seen) H 09/10/17 17:41 Ur Culture Indicated? NO. (NO) A 09/10/17 17:41 - Clinical Findings Intake & Output: Intake & Output 09/13/17 09/14/17 09/14/17 23:59 07:59 15:59 Intake Total 100 / 100 922 / 922 106 / 106 Output Total 39 / 39 309 / 309 160 / 160 Balance 61 / 61 613 / 613 -54 / -54 Consult Discharge Plan - Plan Referrals: Amaris Hamilton MD [Primary Care Provider] - Kathi Hernández CNP [Advanced Practice Nurse] - 09/19/17 11:00 am Prescriptions: Ipratropium/Albuterol Neb [Duoneb] 3 ml IH Q6HR PRN 7 Days #28 vial.neb PRN Reason: Shortness Of Breath - Attending Attestation I examined this patient and my medical decision-making was reviewed with the Resident Physician. I agree with the documented findings, disposition and treatment plan as described except to the extent set forth below. Patient seen and examined. Labs, radiology, chart personally reviewed. 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 Mechanical Overall prognosis is poor and thank you for consultation <Adam Callahan - Last Filed: 09/14/17 17:27> Date of Encounter: 09/14/17 Time of Encounter: 11:03 Assessment and Plan (1) Respiratory failure Current Visit: Yes Status: Acute Patient was postop from urgent pericardial window. Patient was uneventfully extubated. Patient does have a history of smoking and likely underlying COPD. Patient was on low vent settings upon arrival to the ICU. Patient was able to communicate and met parameters for extubation. Patient was extubated without difficulty. Confirmed with the patient that she would not want to be intubated. Patient would not want any chest compressions. Patient's CODE STATUS was changed to DNR CCA DNI. PLAN -Resolved. Currently extubated. We will continue nebs as well as steroids. Steroids will be given for 2 days around the bud-intubation. -Supplemental oxygen titration to 92-97% -Continue to monitor. Qualifiers: Chronicity: unspecified Respiratory failure complication: unspecified whether with hypoxia or hypercapnia Qualified Code(s): J96.90 - Respiratory failure, unspecified, unspecified whether with hypoxia or hypercapnia (2) Hypotension Current Visit: Yes Status: Resolved Review the patient's vital shows that the patient has been chronically hypotensive. Etiology is likely multifactorial given the patient's most recent procedure. Patient had a pericardial window. Patient also is noted to be anemic of unknown etiology. Hematology is following with appreciation recommendations. Patient is mentating appropriately. Patient's continued to produce urine. PLAN -MIVFs -Pressor support as needed. Maintain MAP>60 Qualifiers: Hypotension type: unspecified hypotension type Qualified Code(s): I95.9 - Hypotension, unspecified (3) Pericardial effusion Current Visit: Yes Status: Acute Patient was urgently taking for pericardial window following an echo which showed evidence of early tamponade. Stable post procedure chest x-ray. Management per cardiothoracic team. (4) Anemia Current Visit: Yes Status: Chronic Patient has symptomatic anemia. Etiology at this time is unknown. Hematology/ oncology on board. Appreciate their recommendations. Awaiting bone marrow biopsy. PLAN -Daily CBC -Transfusion goal Hgb>7 -Monitor for s/sx of bleeding. Qualifiers: Anemia type: unspecified type Qualified Code(s): D64.9 - Anemia, unspecified (5) Pancytopenia Current Visit: Yes Status: Chronic Unknown etiology. As above with heme recommendations. History of Present Illness Consult date: 09/14/17 Requesting physician: Kenn Hobson Reason for consult: other (Ventilatory management) Chief complaint: weakness History of present illness: 67 year old F with a recent pMHx of pancytopenia, pericarditis approximately 20 years ago, and anemia. On previous admission, Ms. Burnett presented to the ED from 09/01 to 09/04 for weakness. At that point, she was being monitored for pancytopenia for around 8 months, requiring blood transfusions. On workup, no signs of GI bleeding, however suggestive of diverticulosis. On recent admission , Pt. was admitted on 09/11 for weakness and symptomatic anemia. During the hospital course the patient was found to have signs of early cardiac tamponade. Cardiology and cardiothoracic surgery consulted for urgent pericardial window, however after surgery she remained hypotensive under intubation. She now presents to the ICU for management of ventilator. Patient was able to communicate with writing and knotting of the head on exam will intubated. Patient denied any specific concerns at this time. Patient was communicating stated that she wanted the tube removed. Past Med Surg Social Fam HX - Past Medical History Medical history: hyperlipidemia, hypertension, myocardial infarction Psychiatric history: no psych history - Past Surgical History Surgical History: no surgical history - Social History Smoking Status: Former smoker Packs per day: 1/2PPD X 15 YRS Smokeless Tobacco Status: No Alcohol use: none Drug use: none - Family History Mother Living Status: Hx Family Cancer: Yes All Systems: The remainder of the systems were reviewed and are negative - Constitutional Constitutional: as per HPI, weakness, weight loss - Cardiovascular Cardiovascular: as per HPI, no chest pain - Respiratory Respiratory: as per HPI, cough, dyspnea - Gastrointestinal Gastrointestinal: as per HPI - Genitourinary Genitourinary: as per HPI - Hematologic/Lymphatic Hematologic/Lymphatic: as per HPI Physical Examination Vital Signs: Vital Signs, Last 4 Hours Temp Pulse Resp BP Pulse Ox 09/14/17 10:42 24 84/43 100 09/14/17 10:00 84 20 84/45 100 09/14/17 09:00 81 20 87/44 100 09/14/17 08:20 14 94/49 100 09/14/17 08:00 80 18 95/49 100 09/14/17 07:53 82 09/14/17 07:10 97.3 F L General appearance: no acute distress, alert Eyes: nonicteric ENT: oropharynx moist Neck: other Effort: normal Inspection: normal Auscultation: bilateral: wheezes (exp wheeze) Cardiovascular: regular rate and rhythm, other (dry, dressing in place with pericardial drain functioning.) Gastrointestinal: normoactive bowel sounds Integumentary: normal Extremities: no cyanosis Musculoskeletal: no deformities Ventilator Settings Ventilator Settings: Ventilator Settings, Last 8 Hours Ventilator Mode VC+ Ventilator Mode VC+ Ventilator Mode VC+ Ventilator Mode A/C Ventilator Mode VC+ Ventilator Tidal Volume 500 Setting Ventilator Tidal Volume 500 Setting Ventilator Tidal Volume 500 Setting Ventilator Tidal Volume 500 Setting Ventilator Tidal Volume 500 Setting Ventilator Tidal Volume 500 Setting Ventilator Tidal Volume 500 Setting Ventilator Tidal Volume 500 Setting Ventilator Respiratory Rate 14 Setting Ventilator Respiratory Rate 14 Setting Ventilator Respiratory Rate 14 Setting Ventilator Respiratory Rate 14 Setting Ventilator Respiratory Rate 14 Setting Ventilator Respiratory Rate 14 Setting Ventilator Respiratory Rate 14 Setting Ventilator Respiratory Rate 14 Setting Actual Respiratory Rate 24 Actual Respiratory Rate 14 Actual Respiratory Rate 18 Actual Respiratory Rate 14 Actual Respiratory Rate 15 Actual Respiratory Rate 14 Actual Respiratory Rate 15 Actual Respiratory Rate 14 Positive End Expiratory 5 Pressure Positive End Expiratory 5 Pressure Positive End Expiratory 5 Pressure Positive End Expiratory 5 Pressure Positive End Expiratory 5 Pressure Positive End Expiratory 5 Pressure Positive End Expiratory 5 Pressure Positive End Expiratory 5 Pressure Positive End Expiratory 5 Pressure Peak Inspiratory Airway 14 Pressure Peak Inspiratory Airway 32 Pressure Peak Inspiratory Airway 32 Pressure Peak Inspiratory Airway 29 Pressure Peak Inspiratory Airway 30 Pressure Peak Inspiratory Airway 28 Pressure Peak Inspiratory Airway 31 Pressure Peak Inspiratory Airway 28 Pressure Results - Laboratory Findings CBC and BMP: 09/14/17 03:08 09/14/17 03:08 ABG ABG pH 7.39 pH Units (7.32-7.45) 09/14/17 04:34 ABG pCO2 34 mmHg (35-45) L 09/14/17 04:34 ABG pO2 217 mmHg (85-104) H D 09/14/17 04:34 ABG O2 Saturation 100 % (95-98) H 09/14/17 04:34 PT/INR, D-dimer PT 27.2 Seconds (9.4-12.1) H 09/13/17 04:03 D-Dimer 1867 ng/mLFEU (0-500) H 09/12/17 18:53 Abnormal lab findings: Abnormal lab results WBC 2.2 K/mcL (4.3-11.1) L 09/14/17 03:08 RBC 2.80 M/mcL (3.82-4.97) L 09/14/17 03:08 Hgb 7.9 g/dL (11.5-15.4) L D 09/14/17 03:08 Hct 23.2 % (35.3-44.9) L 09/14/17 03:08 MCV 82.9 fL (83.0-100.0) L 09/14/17 03:08 RDW 15.6 % (11.5-14.5) H 09/14/17 03:08 Plt Count 83 K/mcL (140-400) L 09/14/17 03:08 Metamyelocytes % 2.0 % (0) H 09/13/17 04:03 Myelocytes % 8.0 % (0) H 09/13/17 04:03 Neutrophils # 1.1 K/mcL (1.6-8.9) L 09/14/17 03:08 Nucleated RBCs/100 WBC 0.9 /100 WBC (0) H 09/14/17 03:08 Platelet Estimate Decreased (Normal) L 09/14/17 03:08 Hypochromasia Present (Not Present) A 09/14/17 03:08 Poikilocytosis 1+ (Not Present) A 09/13/17 04:03 PT 27.2 Seconds (9.4-12.1) H 09/13/17 04:03 PT Inhibitor Screen 27.8 sec (12.0-15.5) H 09/11/17 12:58 APTT 53.4 Seconds (26.0-36.0) H 09/13/17 04:03 PTT Inhibitor 101 sec (32-48) H 09/11/17 12:58 PTT Patient/Normal 1:1 59 sec (32-48) H 09/11/17 12:58 Thrombin Time 13.4 sec (14.7-19.5) L 09/11/17 12:58 Fibrinogen 563 mg/dL (169-393) H 09/12/17 18:53 D-Dimer 1867 ng/mLFEU (0-500) H 09/12/17 18:53 Plt Neutralization POSITIVE (Negative) A 09/11/17 12:58 Lupus Anticoag INR 27.4 sec (12.0-15.5) H 09/11/17 12:58 Lupus Anticoag aPTT 111 sec (32-48) H 09/11/17 12:58 LA PTT Mix Pt/Norm 1:1 60 sec (32-48) H 09/11/17 12:58 Factor VII 19 % (80-181) L 09/11/17 12:58 ABG pCO2 34 mmHg (35-45) L 09/14/17 04:34 ABG pO2 217 mmHg (85-104) H D 09/14/17 04:34 ABG HCO3 20 mEq/L (21-27) L 09/14/17 04:34 ABG O2 Saturation 100 % (95-98) H 09/14/17 04:34 ABG Base Excess -4 mEq/L (-2 to 3) L 09/14/17 04:34 Sodium 132 mEq/L (136-145) L 09/14/17 03:08 Carbon Dioxide 17 mEq/L (23-29) L 09/14/17 03:08 BUN/Creatinine Ratio 27 (6-26) H 09/14/17 03:08 Glucose 115 mg/dL (70-105) H 09/14/17 03:08 POC Glucose 113 mg/dL (70-99) H 09/13/17 22:48 Calculated Osmolality 278 (280-300) L 09/14/17 03:08 Calcium 7.8 mg/dL (8.6-10.3) L 09/14/17 03:08 Total Bilirubin 3.0 mg/dL (0.3-1.0) H 09/11/17 04:56 Direct Bilirubin 1.5 mg/dL (0.0-0.2) H 09/10/17 17:24 AST 10 Units/L (13-39) L 09/11/17 04:56 ALT 4 Units/L (7-52) L 09/11/17 04:56 Alkaline Phosphatase 115 Units/L (34-104) H 09/11/17 04:56 Serum Total Protein 4.6 g/dL (6.4-8.9) L 09/11/17 04:56 Albumin 2.3 g/dL (3.5-5.7) L 09/11/17 04:56 Globulin 2.3 g/dL (2.4-3.5) L 09/11/17 04:56 Albumin/Globulin Ratio 1.0 (1.1-2.2) L 09/11/17 04:56 Urine Color [place] (Yellow) A 09/10/17 17:41 Urine Clarity Cloudy (Clear) A 09/10/17 17:41 Urine Protein 30 mg/dL (Neg-Trace) H 09/10/17 17:41 Urine Ketones Trace mg/dL (Negative) H 09/10/17 17:41 Urine Nitrite Positive (Negative) A 09/10/17 17:41 Urine Bilirubin Moderate (Negative) H 09/10/17 17:41 Urine Urobilinogen 4.0 mg/dL (Normal) H 09/10/17 17:41 Ur Leukocyte Esterase Small (Negative) H 09/10/17 17:41 Urine Microscopic WBC 3-5 per hpf (0-3) H 09/10/17 17:41 Ur Squamous Epith Cells Many per lpf (None-Few) H 09/10/17 17:41 Granular Casts Few per lpf (None Seen) H 09/10/17 17:41 Ur Culture Indicated? NO. (NO) A 09/10/17 17:41 - Diagnostic Findings Chest x-ray: report reviewed - Clinical Findings Intake & Output: Intake & Output 09/13/17 09/14/17 09/14/17 23:59 07:59 15:59 Intake Total 100 / 100 922 / 922 Output Total 39 / 39 309 / 309 Balance 61 / 61 613 / 613
[2017-09-14] MEDS ORDERED: Albuterol 2.5 MG/3 ML NEBULIZER IH PRN (11:40)
[2017-09-14] MEDS: methylPREDNISolone 125 MG/2 ML VIAL IVP SCH (17:34)
--- NOTE | 2017-09-14 19:13 | Oncology Inp Progress Note ---
Date of Encounter: 09/14/17 Time of Encounter: 18:45 (1) Elevated INR Current Visit: Yes Status: Acute Assessment and plan: This is a very interesting case. Clinically, she has an elevated d-dimer, PT and PTT. Mixing studies do not correct her PTT. This would be indicative of an inhibitor. 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 A severe factor deficiency can also mimic in inhibitor. There was mention of possible APL in the differential. Given the chronicity of her blood counts lack of petechia, purpura and relative stability in her platelets, I do not think this is the case. In any event, the patient is refusing bone marrow biopsy or further evaluation at this time. I recommended she receive a dose of 10 mg vitamin K. She has received FFP. Repeat coags, fibrinogen and d-dimer in the AM. (2) Leukocytopenia Current Visit: No Status: Acute Assessment and plan: Etiology is unclear. She has underwent thorough evaluation. One consideration as amyloidosis. This could cause her symptoms of heart failure, cytopenias as well as a factor X deficiency which could cause elevation in her PT and PTT. However, her protein electrophoresis and serum free light chain assessment is negative making this unlikely. A cardiac biopsy has been sent and I will be awaiting these results. Other considerations include a evolving leukemia/MDS. Unfortunately, a bone marrow aspirate and biopsy will be required to aid in the diagnosis. She is refusing this. When I explained her that there is potential that this could be a potentially life-threatening condition, the patient does not budge from her position. We will readdress this on Sunday. I have sent an DAWOOD to see if she has an underlying autoimmune condition. Systemic sclerosis is a possibility although unlikely. Although she does not have findings of cirrhosis on imaging, another consideration is an underlying liver condition. With her coagulopathy and splenomegaly, this certainly could be a consideration, albeit unlikely. Acute management will not change if this is the case. Qualifiers: Leukopenia type: other Qualified Code(s): D72.818 - Other decreased white blood cell count (3) Thrombocytopenia Current Visit: No Status: Acute Assessment and plan: Please see above. Platelets are stable and adequate. We will continue to monitor. Coagulation studies have been repeated. Of note, if patient's clinical condition decompensates, I would transfer to a tertiary care center for further management. Oncology: Subj Interval history: Ms. Burnett underwent pericardial window placement with the drain remaining in place. Drainage currently looks serous. She does have some bruising about her arms at previous IV site spicy no petechia or purpura. There is no wet purpura involving her gums or oral cavity. She has a fever, chills or symptoms of infection. She feels very tired. She is in pain. When discussing the potential for bone marrow aspirate and biopsy, she adamantly refuses this. She states "you do not know the pain you are putting me through". She will think about this "may be a long time in the future." - Constitutional Vitals: Vital Signs Temp Pulse Resp BP Pulse Ox 09/14/17 18:00 124 20 86/55 96 09/14/17 17:00 122 16 78/52 95 09/14/17 16:00 128 18 82/55 95 09/14/17 15:11 126 09/14/17 15:00 97.5 F L 126 20 86/57 95 09/14/17 14:00 121 20 84/55 97 09/14/17 13:00 117 22 87/52 100 09/14/17 12:00 110 22 85/46 100 09/14/17 11:42 105 09/14/17 11:03 100 09/14/17 11:00 97.9 F 96 22 87/49 100 09/14/17 10:42 24 84/43 100 09/14/17 10:00 84 20 84/45 100 09/14/17 09:00 81 20 87/44 100 09/14/17 08:20 14 94/49 100 09/14/17 08:00 80 18 95/49 100 09/14/17 07:53 82 09/14/17 07:10 97.3 F L 09/14/17 07:00 82 09/14/17 06:04 14 100 09/14/17 06:00 78 15 94/49 100 09/14/17 05:00 74 14 91/46 100 09/14/17 04:00 72 15 103/50 100 09/14/17 03:47 14 88/46 100 09/14/17 03:00 96.9 F L 71 14 94/47 100 09/14/17 02:32 26 103/54 100 09/14/17 02:22 96.6 F L 72 14 107/52 100 09/14/17 02:07 96.6 F L 75 14 93/46 100 09/14/17 02:00 75 14 107/52 100 09/14/17 01:52 96.4 F L 76 14 108/53 100 09/14/17 01:05 96.9 F L 87 14 94/50 100 09/14/17 01:00 90 16 90/47 100 09/14/17 00:48 96.9 F L 90 19 90/48 100 09/14/17 00:33 96.8 F L 101 14 82/47 100 09/14/17 00:30 105 18 85/50 100 09/14/17 00:29 98 F 106 16 86/51 100 09/14/17 00:00 120 26 95/57 99 09/13/17 23:45 129 20 96/59 99 09/13/17 23:40 20 108/58 100 09/13/17 23:33 97.9 F 116 17 129/84 100 09/13/17 23:30 138 18 128/72 100 09/13/17 23:18 97.9 F 146 23 136/76 09/13/17 23:15 146 23 136/76 99 09/13/17 23:00 97.6 F 142 16 133/68 99 09/13/17 22:45 14 109/57 99 09/13/17 21:03 97.9 F 120 108/70 96 09/13/17 20:00 125/73 Intake and Output 09/14/17 09/14/17 09/15/17 08:59 16:59 00:59 Intake Total 489 / 489 206 / 206 Output Total 300 / 300 295 / 295 Balance 189 / 189 -89 / -89 Intake: IV Fluids 106 / 106 PRECEDEX Premix 400 mcg In 100 78 / 78 ml @ 0.2 MCG/KG/HR 3.775 mls/hr IVC .Q24H JONH Rx#:[id number] FentaNYL (PF) 1,000 MCG In 0.9 28 / 28 % Sodium Chloride 80 ML @ 50 MCG/HR 5 mls/hr IVC CONT JONH Rx #:[id number] Oral 100 / 100 Blood Product 489 / 489 Plasma Unit [id number] 279 / 279 Platelet Pheresis Lp Irr 1st 210 / 210 Unit [id number] Output: Catheter 200 / 200 175 / 175 Chest Tube Drainage 100 / 100 120 / 120 Mediastinal #1 100 / 100 120 / 120 General appearance: disheveled, no acute distress - Head Head exam: Present: atraumatic, normal inspection, normocephalic - Eye Eye exam: Present: normal appearance, scleral icterus, conjuntiva pink - ENT ENT exam: Present: mucous membranes moist, normal exam - Neck Neck exam: Present: full ROM, normal inspection Additional comments: Bruising about right neck - Respiratory Respiratory exam: Present: decreased breath sounds - Cardiovascular Cardiovascular exam: Present: tachycardia - GI/Abdominal GI/Abdominal exam: Present: distended, soft - Extremities Exam Extremities exam: Present: pedal edema - Skin Skin exam: Present: normal color Additional comments: Multiple ecchymoses about hands and arms. No petechia or purpura Oncology: Obj Data - Labs CBC & Chem 7: 09/14/17 03:08 09/14/17 03:08 Labs: Laboratory Results - last 24 hr 09/11/17 09/11/17 09/13/17 12:58 12:58 21:02 WBC RBC Hgb Hct MCV MCH MCHC RDW Plt Count MPV Seg Neutrophils % Band Neutrophils % Lymphocytes % Monocytes % Neutrophils # Lymphocytes # Monocytes # Nucleated RBCs/100 WBC Platelet Estimate Immature Plt Fraction Hypochromasia Heparin Neutralization NOT APPLICABLE PT Inhibitor Screen 27.8 H PTT Inhibitor 101 H PT Patient/Normal 1:1 15.3 PTT Patient/Normal 1:1 59 H Thrombin Time 13.4 L D-Dimer Plt Neutralization POSITIVE A Lupus Anticoag INR 27.4 H Lupus Anticoag aPTT 111 H LA PTT Mix Pt/Norm 1:1 60 H Dil Winston Viper Venom 38 LA dRVVT Confirm NOT APPLICABLE dRVVT Mix NOT APPLICABLE LA Reptilase Time NOT APPLICABLE Hexag Phospholip Neutrl NOT APPLICABLE Lupus Anticoag Interp SEE NOTE Factor VII 19 L Sample Site ABG pH ABG pCO2 ABG pO2 ABG HCO3 ABG Total CO2 ABG O2 Saturation ABG Base Excess Respiration Rate O2 Delivery Device Blood Gas Modality Inspired O2 Tidal Volume PEEP Sodium Potassium Chloride Carbon Dioxide BUN Creatinine Est GFR ( Amer) Est GFR (Non-Af Amer) BUN/Creatinine Ratio Glucose POC Glucose Calculated Osmolality Calcium Pericard Appearance Pericard Volume Pericard RBC Pericard Tot Nuc Cells Pericard Neutrophils Pericard Lymphocytes Pericard Monocytes % Pericard Other Cells Pericard Total Protein Pericardial LDH Pericardial Glucose Blood Type B POSITIVE Antibody Screen NEGATIVE 09/13/17 09/13/17 09/13/17 22:12 22:12 22:48 WBC RBC Hgb Hct MCV MCH MCHC RDW Plt Count MPV Seg Neutrophils % Band Neutrophils % Lymphocytes % Monocytes % Neutrophils # Lymphocytes # Monocytes # Nucleated RBCs/100 WBC Platelet Estimate Immature Plt Fraction Hypochromasia Heparin Neutralization PT Inhibitor Screen PTT Inhibitor PT Patient/Normal 1:1 PTT Patient/Normal 1:1 Thrombin Time D-Dimer Plt Neutralization Lupus Anticoag INR Lupus Anticoag aPTT LA PTT Mix Pt/Norm 1:1 Dil Winston Viper Venom LA dRVVT Confirm dRVVT Mix LA Reptilase Time Hexag Phospholip Neutrl Lupus Anticoag Interp Factor VII Sample Site ABG pH ABG pCO2 ABG pO2 ABG HCO3 ABG Total CO2 ABG O2 Saturation ABG Base Excess Respiration Rate O2 Delivery Device Blood Gas Modality Inspired O2 Tidal Volume PEEP Sodium Potassium Chloride Carbon Dioxide BUN Creatinine Est GFR ( Amer) Est GFR (Non-Af Amer) BUN/Creatinine Ratio Glucose POC Glucose 113 H Calculated Osmolality Calcium Pericard Appearance Cloudy Pericard Volume 85.0 Pericard RBC < 0.002 Pericard Tot Nuc Cells 26 Pericard Neutrophils 10.0 Pericard Lymphocytes 40.0 Pericard Monocytes % 2.0 Pericard Other Cells 48.0 Pericard Total Protein < 3.0 Pericardial LDH 37 Pericardial Glucose 106 Blood Type Antibody Screen 09/13/17 09/14/17 09/14/17 23:36 03:08 03:08 WBC 2.2 L RBC 2.80 L Hgb 7.9 L D Hct 23.2 L MCV 82.9 L MCH 28.2 MCHC 34.1 RDW 15.6 H Plt Count 83 L MPV 11.4 Seg Neutrophils % 46.0 Band Neutrophils % 4.0 Lymphocytes % 30.0 Monocytes % 20.0 Neutrophils # 1.1 L Lymphocytes # 0.7 Monocytes # 0.4 Nucleated RBCs/100 WBC 0.9 H Platelet Estimate Decreased L Immature Plt Fraction 4.8 Hypochromasia Present A Heparin Neutralization PT Inhibitor Screen PTT Inhibitor PT Patient/Normal 1:1 PTT Patient/Normal 1:1 Thrombin Time D-Dimer Plt Neutralization Lupus Anticoag INR Lupus Anticoag aPTT LA PTT Mix Pt/Norm 1:1 Dil Winston Viper Venom LA dRVVT Confirm dRVVT Mix LA Reptilase Time Hexag Phospholip Neutrl Lupus Anticoag Interp Factor VII Sample Site Art Line ABG pH 7.38 ABG pCO2 27 L ABG pO2 487 H ABG HCO3 16 L ABG Total CO2 17 L ABG O2 Saturation 100 H ABG Base Excess -8 L Respiration Rate 14 O2 Delivery Device Adult Vent Blood Gas Modality VC Inspired O2 100.0 Tidal Volume 500 PEEP 5 Sodium 132 L Potassium 3.9 Chloride 107 Carbon Dioxide 17 L BUN 20 Creatinine 0.73 Est GFR ( Amer) > 60 Est GFR (Non-Af Amer) > 60 BUN/Creatinine Ratio 27 H Glucose 115 H POC Glucose Calculated Osmolality 278 L Calcium 7.8 L Pericard Appearance Pericard Volume Pericard RBC Pericard Tot Nuc Cells Pericard Neutrophils Pericard Lymphocytes Pericard Monocytes % Pericard Other Cells Pericard Total Protein Pericardial LDH Pericardial Glucose Blood Type Antibody Screen 09/14/17 09/14/17 04:34 18:45 WBC RBC Hgb Hct MCV MCH MCHC RDW Plt Count MPV Seg Neutrophils % Band Neutrophils % Lymphocytes % Monocytes % Neutrophils # Lymphocytes # Monocytes # Nucleated RBCs/100 WBC Platelet Estimate Immature Plt Fraction Hypochromasia Heparin Neutralization PT Inhibitor Screen PTT Inhibitor PT Patient/Normal 1:1 PTT Patient/Normal 1:1 Thrombin Time D-Dimer 1956 H Plt Neutralization Lupus Anticoag INR Lupus Anticoag aPTT LA PTT Mix Pt/Norm 1:1 Dil Winston Viper Venom LA dRVVT Confirm dRVVT Mix LA Reptilase Time Hexag Phospholip Neutrl Lupus Anticoag Interp Factor VII Sample Site Art Line ABG pH 7.39 ABG pCO2 34 L ABG pO2 217 H D ABG HCO3 20 L ABG Total CO2 21 ABG O2 Saturation 100 H ABG Base Excess -4 L Respiration Rate 14 O2 Delivery Device Adult Vent Blood Gas Modality VC Inspired O2 50.0 Tidal Volume 500 PEEP 5 Sodium Potassium Chloride Carbon Dioxide BUN Creatinine Est GFR ( Amer) Est GFR (Non-Af Amer) BUN/Creatinine Ratio Glucose POC Glucose Calculated Osmolality Calcium Pericard Appearance Pericard Volume Pericard RBC Pericard Tot Nuc Cells Pericard Neutrophils Pericard Lymphocytes Pericard Monocytes % Pericard Other Cells Pericard Total Protein Pericardial LDH Pericardial Glucose Blood Type Antibody Screen - Impressions Impressions Echocardiogram 09/13/17 08:07 Impressions: LVEF 65%. Normal LV chamber size, wall thickness and function. Indeterminate diastolic function. Normal right ventricular structure and function. No significant valvular dysfunction. There is a pericaridal effusion present, which is small to moderate anteriorly and trivial elsewhere. No evidence of tamponade. Left Ventricular Wall Motion: Rest Echo Findings All wall segments showed normal motion. Findings: Study Quality * Technically sub-optimal due to poor echocardiographic windows. ECG Findings * Sinus tachycardia. Left Ventricle * LVEF 65%. * Normal LV chamber size, wall thickness and function. * Indeterminate diastolic function. Right Ventricle * Normal right ventricular structure and function. Left Atrium * Normal left atrial size. Right Atrium * Normal right atrial size. Aortic Valve * Aortic valve not well visualized. * No aortic regurgitation. * No aortic stenosis. Mitral Valve * Normal mitral valve structure and function. * No mitral regurgitation. * No mitral stenosis. Tricuspid Valve * Normal tricuspid valve structure and function. * No tricuspid regurgitation. * Unable to estimate RVSP due to lack of TR jet. Pulmonic Valve * Pulmonic valve is not well visualized. * No pulmonic regurgitation. Aorta * Normally sized aortic root. Pericardium * There is a pericaridal effusion present, which is small to moderate anteriorly and trivial elsewhere. No evidence of tamponade. IVC * Normal IVC dimensions and inspiratory collapse. Pulmonary Artery * Normal visualized portions of the main pulmonary artery. Chest X-Ray 09/13/17 22:47 IMPRESSION: 1. Well-positioned endotracheal tube. 2. Tip of the right-sided central venous line extends to the level of the right atrium. Consider retraction by approximately 3-4 cm. D/ / 09/14/2017 06:59:56 Rome Tiwari MD / joanna Interpreting Provider: Rome Tiwari MD Chest X-Ray 09/14/17 06:00 IMPRESSION: No pneumothorax or any other acute cardiopulmonary findings. Stable appropriate life support device positioning. D/ / Payam Marquez / Payam Marquez Interpreting Provider: Payam Marquez - ABG Interpretation ABG results: ABG ABG pH 7.39 pH Units (7.32-7.45) 09/14/17 04:34 ABG pCO2 34 mmHg (35-45) L 09/14/17 04:34 ABG pO2 217 mmHg (85-104) H D 09/14/17 04:34 ABG O2 Saturation 100 % (95-98) H 09/14/17 04:34 PT/INR, D-dimer PT 27.2 Seconds (9.4-12.1) H 09/13/17 04:03 D-Dimer 1956 ng/mLFEU (0-500) H 09/14/17 18:45 Consult Discharge Plan - Plan Referrals: Amaris Hamilton MD [Primary Care Provider] - Kathi Hernández CNP [Advanced Practice Nurse] - 09/19/17 11:00 am Prescriptions: Ipratropium/Albuterol Neb [Duoneb] 3 ml IH Q6HR PRN 7 Days #28 [email or web address] PRN Reason: Shortness Of Breath
[2017-09-14] MEDS: traZODone 50 MG TABLET PO SCH (21:08)
[2017-09-14] MEDS: 0.9 % Sodium Chloride 1,000 ML IVC SCH (21:08)
[2017-09-14] MEDS: Dexmedetomidine HCl 400 MCG/100 ML MLS IVC SCH (21:10)
[2017-09-15 05:08] LABS: Hematocrit 29.8 % (35.3-44.9); Mean Corpuscular HGB Conc 33.6 g/dL (31.6-35.5); Mean Corpuscular Hemoglobin 28.1 pg (28.0-33.3); Mean Corpuscular Volume 83.7 fL (83.0-100.0); Mean Platelet Volume 11.3 fL (9.4-12.4); Platelet Count 108 K/mcL (140-400); Red Blood Count 3.56 M/mcL (3.82-4.97)
[2017-09-15 05:13] LABS: INR 1.6; Prothrombin Time 17.8 Seconds (9.4-12.1)
[2017-09-15 05:30] LABS: BUN/Creatinine Ratio 35 (6-26); Blood Urea Nitrogen 23 mg/dL (8-23); Calcium 8.3 mg/dL (8.6-10.3); Carbon Dioxide 13 mEq/L (23-29); Chloride 105 mEq/L (98-107); Glucose 103 mg/dL (70-105); Osmolality,Calculated 276 (280-300); Potassium 4.5 mEq/L (3.5-5.1); Sodium 131 mEq/L (136-145); eGFR For African Americans > 60 (> 60); eGFR For Non-African Americans > 60 (> 60)
[2017-09-15 05:38] LABS: Anisocytosis 1+ (Not Present); Lymphocytes # 0.6 K/mcL (0.6-4.6); Monocytes # 0.7 K/mcL (0.0-1.3); Neutrophils # 4.6 K/mcL (1.6-8.9); Platelet Estimate Normal (Normal)
[2017-09-15] MEDS: Levothyroxine 25 MCG TABLET PO SCH (06:34)
[2017-09-15] MEDS: methylPREDNISolone 125 MG/2 ML VIAL IVP SCH (06:34)
--- NOTE | 2017-09-15 07:26 | Cardiothoracic Progress Note ---
Date of Encounter: 09/15/17 Time of Encounter: 07:24 - Assessment and plan (1) Pericardial effusion Current Visit: Yes Status: Acute The patient is recovering well from her subxiphoid pericardial window. She remained hemodynamically stable overnight. She is extubated and breathing comfortably. The chest tube will remain on suction for at least 2 more days. The pericardial fluid cytology is pending. The patient may be transferred to the stepdown unit at the discretion of the hospitalist. The assessment and plan as outlined above was discussed with the patient and/or family members who expressed understanding and agreement. All questions were answered. - Subjective Procedure(s) Performed: POD#2 S/P Subxiphoid pericardial window Interval history: The patient remained hemodynamic stable overnight. She is extubated and breathing comfortably. Vital Signs, Last 4 Hours Temp Pulse Resp BP Pulse Ox 09/15/17 06:00 110 20 113/73 97 09/15/17 05:00 113 16 104/66 96 09/15/17 04:00 115 16 108/68 96 09/15/17 03:58 96.8 F L Oxgyen Flow Rate Oxygen Flow Rate (LPM) 4 Clinical Data, last 8 Hours Output, Chest Tube Drainage 20 Amount [Mediastinal #1] Output, Chest Tube Drainage 20 Amount [Mediastinal #1] Weight 09/13/17 09/14/17 09/15/17 23:59 23:59 23:59 Weight 75.5 kg 82.3 kg - Physical Examination General: Conversant, No Apparent Distress Neck: No JVD, Normal carotid pulses Cardiac: Reg Rate and Rhythm, Normal S1 and S2, No Murmur Incision: No signs of infection, Dry/intact dressing Chest tubes: Minimal drainage, Other (No air leak) Lungs: Normal Breath Sounds, No Wheeze, Rales, Rhonchi Neuro: Alert and responsive, No focal deficits noted Vascular: Normal capillary refill Extremities: No Clubbing, No Cyanosis, No Edema - Labs 09/15/17 04:00 09/15/17 04:00 Lab Results, Last 24 hours 09/14/17 09/15/17 09/15/17 18:45 04:00 04:00 WBC 5.9 D Hgb 10.0 L D Hct 29.8 L Plt Count 108 L INR D-Dimer 1956 H Sodium 131 L Potassium 4.5 Chloride 105 Carbon Dioxide 13 L BUN 23 Creatinine 0.65 Glucose 103 Calcium 8.3 L 09/15/17 04:00 WBC Hgb Hct Plt Count INR 1.6 D-Dimer Sodium Potassium Chloride Carbon Dioxide BUN Creatinine Glucose Calcium - Imaging Chest Xray: image reviewed (No pneumothorax. Minimal bilateral basilar atelectasis/infiltrates.) - VTE Reasons for not Prescribing Prophylaxis: Medical contraindication (Chronic Blood Loss Anemia) Documentation of Mechanical Device: Intermittent pneumatic compression device Consult Discharge Plan - Plan Referrals: Amaris Hamilton MD [Primary Care Provider] - Kathi Hernández CNP [Advanced Practice Nurse] - 09/19/17 11:00 am Prescriptions: Ipratropium/Albuterol Neb [Duoneb] 3 ml IH Q6HR PRN 7 Days #28 [email or web address] PRN Reason: Shortness Of Breath
--- NOTE | 2017-09-15 07:54 | Pulmonology Progress Note ---
<Adam Callahan - Last Filed: 09/15/17 08:10> Date of Encounter: 09/15/17 Time of Encounter: 07:53 Assessment and Plan (1) Pericardial effusion Current Visit: Yes Status: Acute Patient had signs of early cardiac tamponade. Patient is postop day 2 from pericardial window with cardiothoracic surgery. Patient is doing well. Continues to have the chest tube in place. Pericardial fluid cytology is pending. Cardiothoracic surgery states that the patient may be transferred to a stepdown. Plan -Chest tube management per CT surgeon. -Pericardial cytology pending. (2) Anemia Current Visit: Yes Status: Chronic Patient's hemoglobin is 10 this morning. PLAN -Heme following. Awaiting bone marrow biopsy -Monitor for signs of bleeding -Daily CBC Qualifiers: Anemia type: unspecified type Qualified Code(s): D64.9 - Anemia, unspecified (3) Pancytopenia Current Visit: Yes Status: Chronic Hematology following. Appreciate recommendations. (4) Hypotension Current Visit: Yes Status: Resolved Resolved, Patient remained hemodynamically stable overnight. Qualifiers: Hypotension type: unspecified hypotension type Qualified Code(s): I95.9 - Hypotension, unspecified (5) Respiratory failure Current Visit: Yes Status: Resolved Resolved, patient is extubated. Qualifiers: Chronicity: unspecified Respiratory failure complication: unspecified whether with hypoxia or hypercapnia Qualified Code(s): J96.90 - Respiratory failure, unspecified, unspecified whether with hypoxia or hypercapnia Subjective Principal diagnosis: cardiac tamponade Interval history: Patient seen and examined this morning. Patient denies any specific complaints. Patient states she does have a little bit decreased appetite. Patient's resting comfortably. Denies any shortness of breath, fevers. No evidence overnight. Patient's been hemodynamically stable without the use of vasopressors. Objective PUL Vital signs: Last Vital Signs Temp 96.8 F L 09/15/17 03:58 Pulse 110 09/15/17 06:00 Resp 20 09/15/17 06:00 BP 113/73 09/15/17 06:00 Pulse Ox 97 09/15/17 06:00 General appearance: no acute distress Eyes: nonicteric ENT: oropharynx moist Neck: supple Effort: normal Auscultation: bilateral: clear Cardiovascular: other (Tachycardic) Gastrointestinal: normoactive bowel sounds Integumentary: normal Extremities: no cyanosis Musculoskeletal: no deformities, ROM normal normal mental status, non-focal exam Results - Laboratory Findings CBC and BMP: 09/15/17 04:00 09/15/17 04:00 ABG ABG pH 7.39 pH Units (7.32-7.45) 09/14/17 04:34 ABG pCO2 34 mmHg (35-45) L 09/14/17 04:34 ABG pO2 217 mmHg (85-104) H D 09/14/17 04:34 ABG O2 Saturation 100 % (95-98) H 09/14/17 04:34 PT/INR, D-dimer PT 17.8 Seconds (9.4-12.1) H 09/15/17 04:00 D-Dimer 1956 ng/mLFEU (0-500) H 09/14/17 18:45 Abnormal lab findings: Abnormal lab results RBC 3.56 M/mcL (3.82-4.97) L 09/15/17 04:00 Hgb 10.0 g/dL (11.5-15.4) L D 09/15/17 04:00 Hct 29.8 % (35.3-44.9) L 09/15/17 04:00 RDW 16.0 % (11.5-14.5) H 09/15/17 04:00 Plt Count 108 K/mcL (140-400) L 09/15/17 04:00 Metamyelocytes % 2.0 % (0) H 09/13/17 04:03 Myelocytes % 8.0 % (0) H 09/13/17 04:03 Nucleated RBCs/100 WBC 0.9 /100 WBC (0) H 09/14/17 03:08 Hypochromasia Present (Not Present) A 09/14/17 03:08 Poikilocytosis 1+ (Not Present) A 09/13/17 04:03 Anisocytosis 1+ (Not Present) A 09/15/17 04:00 PT 17.8 Seconds (9.4-12.1) H 09/15/17 04:00 PT Inhibitor Screen 27.8 sec (12.0-15.5) H 09/11/17 12:58 APTT 53.4 Seconds (26.0-36.0) H 09/13/17 04:03 PTT Inhibitor 101 sec (32-48) H 09/11/17 12:58 PTT Patient/Normal 1:1 59 sec (32-48) H 09/11/17 12:58 Thrombin Time 13.4 sec (14.7-19.5) L 09/11/17 12:58 Fibrinogen 563 mg/dL (169-393) H 09/12/17 18:53 D-Dimer 1956 ng/mLFEU (0-500) H 09/14/17 18:45 Plt Neutralization POSITIVE (Negative) A 09/11/17 12:58 Lupus Anticoag INR 27.4 sec (12.0-15.5) H 09/11/17 12:58 Lupus Anticoag aPTT 111 sec (32-48) H 09/11/17 12:58 LA PTT Mix Pt/Norm 1:1 60 sec (32-48) H 09/11/17 12:58 Factor VII 19 % (80-181) L 09/11/17 12:58 ABG pCO2 34 mmHg (35-45) L 09/14/17 04:34 ABG pO2 217 mmHg (85-104) H D 09/14/17 04:34 ABG HCO3 20 mEq/L (21-27) L 09/14/17 04:34 ABG O2 Saturation 100 % (95-98) H 09/14/17 04:34 ABG Base Excess -4 mEq/L (-2 to 3) L 09/14/17 04:34 Sodium 131 mEq/L (136-145) L 09/15/17 04:00 Carbon Dioxide 13 mEq/L (23-29) L 09/15/17 04:00 BUN/Creatinine Ratio 35 (6-26) H 09/15/17 04:00 POC Glucose 113 mg/dL (70-99) H 09/13/17 22:48 Calculated Osmolality 276 (280-300) L 09/15/17 04:00 Calcium 8.3 mg/dL (8.6-10.3) L 09/15/17 04:00 Total Bilirubin 3.0 mg/dL (0.3-1.0) H 09/11/17 04:56 Direct Bilirubin 1.5 mg/dL (0.0-0.2) H 09/10/17 17:24 AST 10 Units/L (13-39) L 09/11/17 04:56 ALT 4 Units/L (7-52) L 09/11/17 04:56 Alkaline Phosphatase 115 Units/L (34-104) H 09/11/17 04:56 Serum Total Protein 4.6 g/dL (6.4-8.9) L 09/11/17 04:56 Albumin 2.3 g/dL (3.5-5.7) L 09/11/17 04:56 Globulin 2.3 g/dL (2.4-3.5) L 09/11/17 04:56 Albumin/Globulin Ratio 1.0 (1.1-2.2) L 09/11/17 04:56 Urine Color Holden (Yellow) A 09/10/17 17:41 Urine Clarity Cloudy (Clear) A 09/10/17 17:41 Urine Protein 30 mg/dL (Neg-Trace) H 09/10/17 17:41 Urine Ketones Trace mg/dL (Negative) H 09/10/17 17:41 Urine Nitrite Positive (Negative) A 09/10/17 17:41 Urine Bilirubin Moderate (Negative) H 09/10/17 17:41 Urine Urobilinogen 4.0 mg/dL (Normal) H 09/10/17 17:41 Ur Leukocyte Esterase Small (Negative) H 09/10/17 17:41 Urine Microscopic WBC 3-5 per hpf (0-3) H 09/10/17 17:41 Ur Squamous Epith Cells Many per lpf (None-Few) H 09/10/17 17:41 Granular Casts Few per lpf (None Seen) H 09/10/17 17:41 Ur Culture Indicated? NO. (NO) A 09/10/17 17:41 - Microbiology Findings Microbiology Findings: Microbiology, Last 48 Hours 09/13/17 22:12 Body Fluid Culture - Preliminary Pericardial Fluid - Clinical Findings Intake & Output: Intake & Output 09/14/17 09/14/17 09/15/17 15:59 23:59 07:59 Intake Total 206 / 206 1051 / 1051 Output Total 295 / 295 240 / 240 190 / 190 Balance -89 / -89 811 / 811 -190 / -190 Weight 82.3 kg - VTE Reasons for not Prescribing Prophylaxis: Medical contraindication (Chronic Blood Loss Anemia) Documentation of Mechanical Device: Intermittent pneumatic compression device Consult Discharge Plan - Plan Referrals: Amaris Hamilton MD [Primary Care Provider] - Kathi Hernández CNP [Advanced Practice Nurse] - 09/19/17 11:00 am Prescriptions: Ipratropium/Albuterol Neb [Duoneb] 3 ml IH Q6HR PRN 7 Days #28 vial.neb PRN Reason: Shortness Of Breath <Sheryl Kennedy M - Last Filed: 09/15/17 08:46> Date of Encounter: 09/15/17 Objective PUL Vital signs: Last Vital Signs Temp 97.9 F 09/15/17 08:08 Pulse 110 09/15/17 06:00 Resp 20 09/15/17 06:00 BP 113/73 09/15/17 06:00 Pulse Ox 97 09/15/17 06:00 Results - Laboratory Findings CBC and BMP: 09/15/17 04:00 09/15/17 04:00 ABG ABG pH 7.39 pH Units (7.32-7.45) 09/14/17 04:34 ABG pCO2 34 mmHg (35-45) L 09/14/17 04:34 ABG pO2 217 mmHg (85-104) H D 09/14/17 04:34 ABG O2 Saturation 100 % (95-98) H 09/14/17 04:34 PT/INR, D-dimer PT 17.8 Seconds (9.4-12.1) H 09/15/17 04:00 D-Dimer 1956 ng/mLFEU (0-500) H 09/14/17 18:45 Abnormal lab findings: Abnormal lab results RBC 3.56 M/mcL (3.82-4.97) L 09/15/17 04:00 Hgb 10.0 g/dL (11.5-15.4) L D 09/15/17 04:00 Hct 29.8 % (35.3-44.9) L 09/15/17 04:00 RDW 16.0 % (11.5-14.5) H 09/15/17 04:00 Plt Count 108 K/mcL (140-400) L 09/15/17 04:00 Metamyelocytes % 2.0 % (0) H 09/13/17 04:03 Myelocytes % 8.0 % (0) H 09/13/17 04:03 Nucleated RBCs/100 WBC 0.9 /100 WBC (0) H 09/14/17 03:08 Hypochromasia Present (Not Present) A 09/14/17 03:08 Poikilocytosis 1+ (Not Present) A 09/13/17 04:03 Anisocytosis 1+ (Not Present) A 09/15/17 04:00 PT 17.8 Seconds (9.4-12.1) H 09/15/17 04:00 PT Inhibitor Screen 27.8 sec (12.0-15.5) H 09/11/17 12:58 APTT 53.4 Seconds (26.0-36.0) H 09/13/17 04:03 PTT Inhibitor 101 sec (32-48) H 09/11/17 12:58 PTT Patient/Normal 1:1 59 sec (32-48) H 09/11/17 12:58 Thrombin Time 13.4 sec (14.7-19.5) L 09/11/17 12:58 Fibrinogen 563 mg/dL (169-393) H 09/12/17 18:53 D-Dimer 1956 ng/mLFEU (0-500) H 09/14/17 18:45 Plt Neutralization POSITIVE (Negative) A 09/11/17 12:58 Lupus Anticoag INR 27.4 sec (12.0-15.5) H 09/11/17 12:58 Lupus Anticoag aPTT 111 sec (32-48) H 09/11/17 12:58 LA PTT Mix Pt/Norm 1:1 60 sec (32-48) H 09/11/17 12:58 Factor VII 19 % (80-181) L 09/11/17 12:58 ABG pCO2 34 mmHg (35-45) L 09/14/17 04:34 ABG pO2 217 mmHg (85-104) H D 09/14/17 04:34 ABG HCO3 20 mEq/L (21-27) L 09/14/17 04:34 ABG O2 Saturation 100 % (95-98) H 09/14/17 04:34 ABG Base Excess -4 mEq/L (-2 to 3) L 09/14/17 04:34 Sodium 131 mEq/L (136-145) L 09/15/17 04:00 Carbon Dioxide 13 mEq/L (23-29) L 09/15/17 04:00 BUN/Creatinine Ratio 35 (6-26) H 09/15/17 04:00 POC Glucose 113 mg/dL (70-99) H 09/13/17 22:48 Calculated Osmolality 276 (280-300) L 09/15/17 04:00 Calcium 8.3 mg/dL (8.6-10.3) L 09/15/17 04:00 Total Bilirubin 3.0 mg/dL (0.3-1.0) H 09/11/17 04:56 Direct Bilirubin 1.5 mg/dL (0.0-0.2) H 09/10/17 17:24 AST 10 Units/L (13-39) L 09/11/17 04:56 ALT 4 Units/L (7-52) L 09/11/17 04:56 Alkaline Phosphatase 115 Units/L (34-104) H 09/11/17 04:56 Serum Total Protein 4.6 g/dL (6.4-8.9) L 09/11/17 04:56 Albumin 2.3 g/dL (3.5-5.7) L 09/11/17 04:56 Globulin 2.3 g/dL (2.4-3.5) L 09/11/17 04:56 Albumin/Globulin Ratio 1.0 (1.1-2.2) L 09/11/17 04:56 Urine Color Holden (Yellow) A 09/10/17 17:41 Urine Clarity Cloudy (Clear) A 09/10/17 17:41 Urine Protein 30 mg/dL (Neg-Trace) H 09/10/17 17:41 Urine Ketones Trace mg/dL (Negative) H 09/10/17 17:41 Urine Nitrite Positive (Negative) A 09/10/17 17:41 Urine Bilirubin Moderate (Negative) H 09/10/17 17:41 Urine Urobilinogen 4.0 mg/dL (Normal) H 09/10/17 17:41 Ur Leukocyte Esterase Small (Negative) H 09/10/17 17:41 Urine Microscopic WBC 3-5 per hpf (0-3) H 09/10/17 17:41 Ur Squamous Epith Cells Many per lpf (None-Few) H 09/10/17 17:41 Granular Casts Few per lpf (None Seen) H 09/10/17 17:41 Ur Culture Indicated? NO. (NO) A 09/10/17 17:41 - Microbiology Findings Microbiology Findings: Microbiology, Last 48 Hours 09/13/17 22:12 Body Fluid Culture - Preliminary Pericardial Fluid - Clinical Findings Intake & Output: Intake & Output 09/14/17 09/15/17 09/15/17 23:59 07:59 15:59 Intake Total 1051 / 1051 Output Total 240 / 240 190 / 190 75 / 75 Balance 811 / 811 -190 / -190 -75 / -75 Weight 82.3 kg - Attending Attestation I examined this patient and my medical decision-making was reviewed with the Resident Physician. I agree with the documented findings, disposition and treatment plan as described except to the extent set forth below. Patient seen and examined. Labs, radiology, chart personally reviewed. 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 Encouraged patient to eat for better nutrition Overall prognosis is poor. Continue supportive care and transfer out of ICU when cardiothoracic agrees.
[2017-09-15] MEDS: ALPRAZolam 0.5 MG TABLET PO PRN (08:43)
[2017-09-15] MEDS: Metoprolol XL (24 HR) Succ 25 MG TAB.ER.24H PO SCH (08:43)
[2017-09-15] MEDS ORDERED: Ipratropium/Albuterol Neb 3 ML IH PRN (09:06)
[2017-09-15] MEDS ORDERED: Ondansetron 4 MG/2 ML VIAL IVP PRN (09:06)
[2017-09-15] MEDS ORDERED: Cyanocobalamin (B-12) 1,000 MCG/ML VIAL IM SCH (09:06)
[2017-09-15] MEDS ORDERED: Sennosides 8.6 MG TABLET PO PRN (09:06)
[2017-09-15] MEDS ORDERED: Naloxone 0.4 MG/ML INJ IVP PRN (09:06)
[2017-09-15] MEDS ORDERED: Albuterol 2.5 MG/3 ML NEBULIZER IH PRN (09:06)
[2017-09-15] MEDS ORDERED: Nitroglycerin 0.4 MG TAB.SUBL SL PRN (09:06)
[2017-09-15] MEDS ORDERED: Acetaminophen 325 MG TABLET PO PRN (09:06)
--- NOTE | 2017-09-15 12:08 | Oncology Inp Progress Note ---
Date of Encounter: 09/15/17 Time of Encounter: 11:15 (1) Elevated INR Current Visit: Yes Status: Acute Assessment and plan: As stated yesterday, this is a very interesting case. 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 She received vitamin K yesterday. In either case, coags are improving which makes me wonder if this was hepatic insufficiency secondary to hepatic congestion related to her pericardial effusion and right heart failure. Indices and edema have improved after pericardial window. Awaiting cytology. DAWOOD ordered. (2) Leukocytopenia Current Visit: No Status: Acute Assessment and plan: Etiology is unclear. Again, improved after pericardial window making congestive hepatopathy rise to the top of my list as an etiology. She has had fluctuating upper abdominal adenopathy and splenomegaly which would support the diagnosis. She does not have APL or HLH clinically. Would consider FLOW cytometry on Sunday for hairy cell leukemia as well. Qualifiers: Leukopenia type: other Qualified Code(s): D72.818 - Other decreased white blood cell count (3) Thrombocytopenia Current Visit: No Status: Acute Assessment and plan: Please see above. Oncology: Subj Interval history: Feeling much better this morning. Minimal chest pain. No fever or chills. Breathing much easier. Lower extremity edema markedly improved. No bleeding or new bruising. Blood counts and coags improving - Constitutional Vitals: Vital Signs Temp Pulse Resp BP Pulse Ox 09/15/17 10:00 123 20 107/72 97 09/15/17 08:30 97.9 F 118 20 116/75 97 09/15/17 08:08 97.9 F 09/15/17 06:00 110 20 113/73 97 09/15/17 05:00 113 16 104/66 96 09/15/17 04:00 115 16 108/68 96 09/15/17 03:58 96.8 F L 09/15/17 03:00 112 16 105/67 96 09/15/17 02:00 111 14 109/69 96 09/15/17 01:00 113 14 113/69 96 09/15/17 00:10 96.9 F L 09/14/17 23:00 123 24 99/59 96 09/14/17 22:00 122 24 93/57 96 09/14/17 21:20 113 09/14/17 21:00 113 18 98/56 96 09/14/17 20:00 114 18 90/56 97 09/14/17 19:46 98.8 F 09/14/17 19:00 114 18 102/62 97 09/14/17 18:00 124 20 86/55 96 09/14/17 17:00 122 16 78/52 95 09/14/17 16:00 128 18 82/55 95 09/14/17 15:11 126 09/14/17 15:00 97.5 F L 126 20 86/57 95 09/14/17 14:00 121 20 84/55 97 09/14/17 13:00 117 22 87/52 100 Intake and Output 09/15/17 09/15/17 09/15/17 00:59 08:59 16:59 Intake Total 1051 / 1051 Output Total 360 / 360 145 / 145 Balance 691 / 691 -145 / -145 Intake: IV Fluids 1051 / 1051 0.9 % Sodium Chloride 1,000 ML 1000 / 1000 @ 50 mls/hr IVC .Q20H JONH Rx#: [id number] AquaMephyton 10 MG In 0.9 % 51 / 51 Sodium Chloride 50 ML @ 100 mls /hr IVPB ONCE ONE Rx#: [id number] Output: Catheter 300 / 300 125 / 125 Chest Tube Drainage 60 / 60 20 / 20 Mediastinal #1 60 / 60 20 / 20 Other: Weight 82.3 kg General appearance: cooperative, no acute distress - Head Head exam: Present: atraumatic, normal inspection, normocephalic - Eye Eye exam: Present: normal appearance, conjuntiva pink, sclera anicteric - ENT ENT exam: Present: normal exam, normal oropharynx - Neck Neck exam: Present: full ROM, normal inspection - Respiratory Respiratory exam: Present: decreased breath sounds - Cardiovascular Cardiovascular exam: Present: RRR - GI/Abdominal GI/Abdominal exam: Present: normal bowel sounds, soft - Extremities Exam Extremities exam: Present: pedal edema Additional comments: Edema much improved - Neurological Exam Neurological exam: Present: alert, CN II-XII intact, oriented X3, no focal deficits Oncology: Obj Data - Labs CBC & Chem 7: 09/15/17 04:00 09/15/17 04:00 Labs: Laboratory Results - last 24 hr 09/13/17 09/13/17 09/14/17 22:12 22:12 18:45 WBC RBC Hgb Hct MCV MCH MCHC RDW Plt Count MPV Seg Neutrophils % Lymphocytes % Monocytes % Neutrophils # Lymphocytes # Monocytes # Platelet Estimate Anisocytosis PT INR D-Dimer 1956 H Sodium Potassium Chloride Carbon Dioxide BUN Creatinine Est GFR ( Amer) Est GFR (Non-Af Amer) BUN/Creatinine Ratio Glucose Calculated Osmolality Calcium Pericard Appearance Cloudy Pericard Volume 85.0 Pericard RBC < 0.002 Pericard Tot Nuc Cells 26 Pericard Neutrophils 10.0 Pericard Lymphocytes 40.0 Pericard Monocytes % 2.0 Pericard Other Cells 48.0 Pericard Total Protein < 3.0 Pericardial LDH 37 Pericardial Glucose 106 09/15/17 09/15/17 09/15/17 04:00 04:00 04:00 WBC 5.9 D RBC 3.56 L Hgb 10.0 L D Hct 29.8 L MCV 83.7 MCH 28.1 MCHC 33.6 RDW 16.0 H Plt Count 108 L MPV 11.3 Seg Neutrophils % 78.0 Lymphocytes % 10.0 Monocytes % 12.0 Neutrophils # 4.6 Lymphocytes # 0.6 Monocytes # 0.7 Platelet Estimate Normal Anisocytosis 1+ A PT 17.8 H INR 1.6 D-Dimer Sodium 131 L Potassium 4.5 Chloride 105 Carbon Dioxide 13 L BUN 23 Creatinine 0.65 Est GFR ( Amer) > 60 Est GFR (Non-Af Amer) > 60 BUN/Creatinine Ratio 35 H Glucose 103 Calculated Osmolality 276 L Calcium 8.3 L Pericard Appearance Pericard Volume Pericard RBC Pericard Tot Nuc Cells Pericard Neutrophils Pericard Lymphocytes Pericard Monocytes % Pericard Other Cells Pericard Total Protein Pericardial LDH Pericardial Glucose - Impressions Impressions Chest X-Ray 09/15/17 06:00 IMPRESSION: Interval removal of endotracheal tube. Slightly increasing bibasilar atelectasis. D/ / Nirali Enamorado MD / Nirali Enamorado MD Interpreting Provider: Nirali Enamorado MD - ABG Interpretation ABG results: ABG ABG pH 7.39 pH Units (7.32-7.45) 09/14/17 04:34 ABG pCO2 34 mmHg (35-45) L 09/14/17 04:34 ABG pO2 217 mmHg (85-104) H D 09/14/17 04:34 ABG O2 Saturation 100 % (95-98) H 09/14/17 04:34 PT/INR, D-dimer PT 17.8 Seconds (9.4-12.1) H 09/15/17 04:00 D-Dimer 1956 ng/mLFEU (0-500) H 09/14/17 18:45 Consult Discharge Plan - Plan Referrals: Amaris Hamilton MD [Primary Care Provider] - Kathi Hernández CNP [Advanced Practice Nurse] - 09/19/17 11:00 am Prescriptions: Ipratropium/Albuterol Neb [Duoneb] 3 ml IH Q6HR PRN 7 Days #28 vial.neb PRN Reason: Shortness Of Breath
[2017-09-15] MEDS: 0.9 % Sodium Chloride 1,000 ML IVC SCH ×2 (12:09→20:13)
[2017-09-15] MEDS ORDERED: *HR* Metoprolol 5 MG/5 ML VIAL IVP ONE ×2 (18:26→18:30)
--- NOTE | 2017-09-15 18:38 | Event Note ---
Date of Encounter: 09/15/17 Time of Encounter: 18:35 Called to the bedside for change the patient's rhythm. Patient does appear to have an irregular regular rhythm with rates in the 180s to 200s. Patient's blood pressures preserved. Patient's talking. Patient denies any chest pain states she has a cough. 12-lead EKG initially showed sinus tach at a rate of 113 paroxysmal into A. fib RVR with a rate of 184. Electrolytes, troponin pending. Patient was given Lopressor 5 mg IV once without a significant benefit. Cardiology paged for further recommendations given the patient's borderline blood pressure.
[2017-09-15] MEDS ORDERED: *HR* Digoxin 0.5 MG/2 ML AMPUL IVP ONE (18:47)
[2017-09-15] MEDS ORDERED: *HR* Digoxin 0.5 MG/2 ML AMPUL ONE (18:48)
[2017-09-15] MEDS ORDERED: *HR* Heparin 5,000 UNIT/ML VIAL IVP ONE (18:52)
[2017-09-15 20:10] LABS: Alanine Aminotransferase 3 Units/L (7-52); Albumin 2.4 g/dL (3.5-5.7); Alkaline Phosphatase 180 Units/L (34-104); Aspartate Amino Transferase 7 Units/L (13-39); BUN/Creatinine Ratio 41 (6-26); Bilirubin,Total 1.7 mg/dL (0.3-1.0); Blood Urea Nitrogen 27 mg/dL (8-23); Calcium 8.6 mg/dL (8.6-10.3); Carbon Dioxide 16 mEq/L (23-29); Chloride 106 mEq/L (98-107); Globulin 2.4 g/dL (2.4-3.5); Glucose 132 mg/dL (70-105); Osmolality,Calculated 279 (280-300); Sodium 131 mEq/L (136-145); Total Protein 4.8 g/dL (6.4-8.9); Troponin I < 0.03 ng/mL (< 0.04); eGFR For African Americans > 60 (> 60); eGFR For Non-African Americans > 60 (> 60)
[2017-09-15] MEDS: Heparin 25,000 UNIT/500 ML D5W 25,000 UNIT/500 ML BAG IVC SCH (20:12)
[2017-09-15] MEDS: traZODone 50 MG TABLET PO SCH (20:13)
[2017-09-15 20:17] LABS: Hematocrit 32.2 % (35.3-44.9); Hemoglobin 10.9 g/dL (11.5-15.4); Mean Corpuscular HGB Conc 33.9 g/dL (31.6-35.5); Mean Corpuscular Hemoglobin 27.8 pg (28.0-33.3); Mean Corpuscular Volume 82.1 fL (83.0-100.0); Mean Platelet Volume 12.4 fL (9.4-12.4); Platelet Count 145 K/mcL (140-400); Red Blood Count 3.92 M/mcL (3.82-4.97); Red Cell Distribution Width 15.9 % (11.5-14.5)
[2017-09-15 21:44] LABS: Activated Partial Thrombo Time 81.1 Seconds (26.0-36.0); INR 1.8; Prothrombin Time 19.1 Seconds (9.4-12.1)
[2017-09-16] MEDS ORDERED: *HR* Digoxin 0.5 MG/2 ML AMPUL IVP SCH
[2017-09-16] MEDS: ALPRAZolam 0.5 MG TABLET PO PRN ×2 (00:23→21:17)
[2017-09-16 03:39] LABS: Basophils % 0.3 %; Hematocrit 29.3 % (35.3-44.9); Hemoglobin 10.2 g/dL (11.5-15.4); Immature Granulocytes % 11.6 % (0-4); Immature Platelets 6.5 % (1.1-6.1); Lymphocytes # 0.4 K/mcL (0.6-4.6); Lymphocytes % 6.3 %; Mean Corpuscular HGB Conc 34.8 g/dL (31.6-35.5); Mean Corpuscular Hemoglobin 28.7 pg (28.0-33.3); Mean Corpuscular Volume 82.3 fL (83.0-100.0); Mean Platelet Volume 12.2 fL (9.4-12.4); Monocytes # 0.8 K/mcL (0.0-1.3); Monocytes % 12.5 %; Neutrophils # 4.5 K/mcL (1.6-8.9); Platelet Count 117 K/mcL (140-400); Red Blood Count 3.56 M/mcL (3.82-4.97); Red Cell Distribution Width 15.9 % (11.5-14.5); Segmented Neutrophils % 69.3 %
[2017-09-16 04:00] LABS: Activated Partial Thrombo Time 112.3 Seconds (26.0-36.0)
[2017-09-16 04:07] LABS: Heparin anti-factor XA UFH 0.11 IU/mL (0.30-0.70)
[2017-09-16 04:11] LABS: Platelet Estimate Decreased (Normal)
[2017-09-16] MEDS ORDERED: Amiodarone Premix 360 MG/200 ML BAG IVC ONE ×2 (04:44→11:05)
[2017-09-16 05:07] LABS: BUN/Creatinine Ratio 48 (6-26); Blood Urea Nitrogen 30 mg/dL (8-23); Calcium 8.5 mg/dL (8.6-10.3); Carbon Dioxide 17 mEq/L (23-29); Chloride 107 mEq/L (98-107); Glucose 131 mg/dL (70-105); Osmolality,Calculated 280 (280-300); Sodium 131 mEq/L (136-145); eGFR For African Americans > 60 (> 60); eGFR For Non-African Americans > 60 (> 60)
[2017-09-16] MEDS ORDERED: Amiodarone Premix 150 MG/100 ML BAG IVPB ONE ×2 (05:31→05:41)
[2017-09-16] MEDS: Levothyroxine 25 MCG TABLET PO SCH (06:23)
--- NOTE | 2017-09-16 07:48 | Cardiothoracic Progress Note ---
Date of Encounter: 09/16/17 Time of Encounter: 07:47 - Assessment and plan (1) Pericardial effusion Current Visit: Yes Status: Acute The patient is recovering well from her subxiphoid pericardial window. She remained hemodynamically stable overnight. The chest tube will remain on suction. The pericardial fluid cytology is pending. The patient may be transferred to the stepdown unit at the discretion of the hospitalist. The assessment and plan as outlined above was discussed with the patient and/or family members who expressed understanding and agreement. All questions were answered. - Subjective Procedure(s) Performed: POD#3 S/P Subxiphoid pericardial window Interval history: The patient remained hemodynamic stable overnight. She is breathing comfortably. Vital Signs, Last 4 Hours Temp Pulse Resp BP Pulse Ox 09/16/17 04:00 168 26 107/69 97 09/16/17 03:52 97.9 F Oxgyen Flow Rate Oxygen Flow Rate (LPM) 4 Clinical Data, last 8 Hours Output, Chest Tube Drainage 0 Amount [Mediastinal #1] Output, Chest Tube Drainage 30 Amount [Mediastinal #1] Output, Chest Tube Drainage 0 Amount [Mediastinal #1] Weight 09/14/17 09/15/17 09/16/17 23:59 23:59 23:59 Weight 82.9 kg - Physical Examination General: Conversant, No Apparent Distress Neck: No JVD, Normal carotid pulses Cardiac: Reg Rate and Rhythm, Normal S1 and S2, No Murmur Incision: No signs of infection, Dry/intact dressing Chest tubes: Minimal drainage, Other (No air leak) Lungs: Normal Breath Sounds, No Wheeze, Rales, Rhonchi Neuro: Alert and responsive, No focal deficits noted Vascular: Normal capillary refill Extremities: No Clubbing, No Cyanosis, No Edema - Labs 09/16/17 03:20 09/16/17 03:20 Lab Results, Last 24 hours 09/15/17 09/15/17 09/15/17 18:19 18:52 18:52 WBC 8.0 Hgb 10.9 L Hct 32.2 L Plt Count 145 INR TNP APTT TNP Sodium 131 L Potassium 5.0 Chloride 106 Carbon Dioxide 16 L BUN 27 H Creatinine 0.66 Glucose 132 H Calcium 8.6 Total Bilirubin 1.7 H AST 7 L ALT 3 L Alkaline Phosphatase 180 H Troponin I < 0.03 09/15/17 09/16/17 09/16/17 21:14 03:00 03:20 WBC 6.5 Hgb 10.2 L Hct 29.3 L Plt Count 117 L INR 1.8 APTT 81.1 H D 112.3 H* Sodium Potassium Chloride Carbon Dioxide BUN Creatinine Glucose Calcium Total Bilirubin AST ALT Alkaline Phosphatase Troponin I 09/16/17 03:20 WBC Hgb Hct Plt Count INR APTT Sodium 131 L Potassium 5.0 Chloride 107 Carbon Dioxide 17 L BUN 30 H Creatinine 0.63 Glucose 131 H Calcium 8.5 L Total Bilirubin AST ALT Alkaline Phosphatase Troponin I - Imaging Chest Xray: image reviewed (No pneumothorax. Minimal left lower lobe atelectasis.) - VTE Reasons for not Prescribing Prophylaxis: Medical contraindication (Chronic Blood Loss Anemia) Documentation of Mechanical Device: Intermittent pneumatic compression device Consult Discharge Plan - Plan Referrals: Amaris Hamilton MD [Primary Care Provider] - Kathi Hernández CNP [Advanced Practice Nurse] - 09/19/17 11:00 am Prescriptions: Ipratropium/Albuterol Neb [Duoneb] 3 ml IH Q6HR PRN 7 Days #28 vial.neb PRN Reason: Shortness Of Breath
[2017-09-16] MEDS: Metoprolol XL (24 HR) Succ 25 MG TAB.ER.24H PO SCH (08:43)
[2017-09-16] MEDS: Amiodarone Premix 360 MG/200 ML BAG IVC SCH ×2 (11:05→17:19)
[2017-09-16] MEDS: *HR* HYDROcodone/Acet 5/325 mg TABLET PO PRN (12:24)
[2017-09-16] MEDS: Ipratropium/Albuterol Neb 3 ML IH SCH ×2 (16:13→21:45)
--- NOTE | 2017-09-16 16:32 | Internal Med Progress Note ---
Date of Encounter: 09/16/17 Time of Encounter: 11:07 - Assessment and plan (1) Symptomatic anemia Current Visit: Yes Status: Resolved Assessment and plan: Hemoglobin this AM steady at 10.2. Transfuse to keep hemoglobin > 10.0. Pancytopenia workup with heme/onc consult and plan for bone marrow biopsy at some point - now maybe considering getting it done as outpatient. Appreciate heme/onc input and will get their final recommendations at discharge. Will continue IVF at low rate as per below. Continue vitamin B12 supplementation. Recheck CBC in AM. (2) Chronic blood loss anemia Current Visit: Yes Status: Chronic Assessment and plan: Management as per above. (3) Pancytopenia Current Visit: Yes Status: Chronic Assessment and plan: Heme/onc consulted; appreciate input. Plan as per above. (4) Hypotension Current Visit: Yes Status: Acute Assessment and plan: BP worse overnight with recurrence of tachycardia. Currently in ICU, which is appropriate for now, will consider transfer to step down. Continue to treat anemia as per above. Gentle IVF as per below. Cardiology and CT surgery consulted; appreciate input. Continue to treat sinus tachycardia as per below. Stable now on amiodarone drip. Continue to hold home atenolol for now. Qualifiers: Hypotension type: unspecified hypotension type Qualified Code(s): I95.9 - Hypotension, unspecified (5) Chronic kidney disease Current Visit: Yes Status: Chronic Assessment and plan: History of CKD stage III. Creatinine WNL at this time. Recheck BMP in AM. Qualifiers: Chronic kidney disease stage: stage 3 (moderate) Qualified Code(s): N18.3 - Chronic kidney disease, stage 3 (moderate) (6) Weakness Current Visit: Yes Status: Acute Assessment and plan: Addressing anemia as per above. PT/OT consulted. (7) Hypothyroidism Current Visit: Yes Status: Chronic Assessment and plan: Continue home medications. Qualifiers: Hypothyroidism type: unspecified Qualified Code(s): E03.9 - Hypothyroidism , unspecified (8) Hyponatremia Current Visit: Yes Status: Acute Assessment and plan: Improved and stable. Likely secondary to decreased oral intake. Continue gentle hydration with IV NS at 50 ml/hr. Consult registered nurse step down. (9) Elevated INR Current Visit: Yes Status: Acute Assessment and plan: INR 1.8 today. Will need 1.5 for bone marrow biopsy. Consider FFP if not normalizing and heme/onc wants to do BM biopsy as inpatient. Started on heparin drip per cardiology's recommendation. (10) Falls Current Visit: Yes Status: Chronic Assessment and plan: Addressing anemia as per above. PT/OT consulted. Qualifiers: Encounter type: sequela Qualified Code(s): W19.XXXS - Unspecified fall, sequela (11) Sinus tachycardia Current Visit: Yes Status: Acute Assessment and plan: Improved on amiodarone drip. Cardiology consulted; appreciate input. Also, on heparin drip now. S/P pericardiocentesis for pericardial effusion/cardiac tamponade. Repeat ECHO pending. Will await further cardiology recommendations tomorrow. CT surgery following; appreciate input. (12) DVT prophylaxis Current Visit: Yes Status: Acute Assessment and plan: Continue SCDs. - Time Spent With Patient Total time spent is greater than 50% in coordination of care (as documented) at patient's floor/unit and/or counseling patient: 25 - 35 minutes - Subjective Interval history: Patient had hypotension with tachycardia again overnight. Cardiology was consulted and recommended digoxin with bolus and drip, then amiodarone if not resolved, and heparin drip. She is currently on amiodarone drip. Nurse titrating as ordered; I verified with her. Hbg has improved and stayed stable. She is s/p pericardiocentesis for worsening pericardial effusion/cardiac tamponade. Nursing paged me earlier this AM that patient was "hurting all over " and "feeling like she was going to ." She subsequently got pain medicine. During my exam, she states that she feels much better. She denies chest pain , palpitations, SOB, fever, chills, nausea, vomiting, or abdominal pain. She has no discrete complaints at this time. I advised nurse that I will talk to cardiology again on Sunday unless there is urgent need to consult them today. I advised her to let CT surgery know about patient's condition and if they had any recommendations. - Constitutional Vitals: Temp Pulse Resp BP Pulse Ox 98.1 F 87 18 105/62 98 09/16/17 12:00 09/16/17 14:00 09/16/17 14:00 09/16/17 14:00 09/16/17 14:00 General appearance: Present: cooperative, A&O X 3, pleasant, no acute distress, answers questions appropriately - Respiratory Respiratory exam: Present: decreased breath sounds (at lung bases bilaterally). Absent: accessory muscle use, rales, rhonchi, wheezes - Cardiovascular Cardiovascular exam: Present: +S1, +S2, tachycardia. Absent: diastolic murmur, gallop, rubs, systolic murmur Additional comments: Regular rhythm - GI/Abdominal GI/Abdominal exam: Present: normal bowel sounds, soft. Absent: distended, hepatomegaly, mass, splenomegaly, tenderness - Psychiatric Psychiatric exam: Present: normal affect, normal mood. Absent: agitated, anxious, depressed - Skin Skin exam: Present: dry, intact, warm. Absent: cyanosis, rash Internal Medicine: Result - Labs CBC & Chem 7: 09/16/17 03:20 09/16/17 03:20 Labs: Short CBC 09/15/17 09/16/17 Range/Units 18:52 03:20 WBC 8.0 6.5 (4.3-11.1) K/mcL Hgb 10.9 L 10.2 L (11.5-15.4) g/dL Hct 32.2 L 29.3 L (35.3-44.9) % Plt Count 145 117 L (140-400) K/mcL Neutrophils # 4.5 (1.6-8.9) K/mcL BMP 09/15/17 09/16/17 18:19 03:20 Sodium 131 L 131 L Potassium 5.0 5.0 Chloride 106 107 Carbon Dioxide 16 L 17 L BUN 27 H 30 H Creatinine 0.66 0.63 Glucose 132 H 131 H Calcium 8.6 8.5 L Cardiac Enzymes 09/15/17 Range/Units 18:19 Troponin I < 0.03 (< 0.04) ng/mL Liver Function 09/15/17 Range/Units 18:19 Total Bilirubin 1.7 H (0.3-1.0) mg/dL AST 7 L (13-39) Units/L ALT 3 L (7-52) Units/L Alkaline Phosphatase 180 H (34-104) Units/L Albumin 2.4 L (3.5-5.7) g/dL - ABG Interpretation ABG results: ABG ABG pH 7.39 pH Units (7.32-7.45) 09/14/17 04:34 ABG pCO2 34 mmHg (35-45) L 09/14/17 04:34 ABG pO2 217 mmHg (85-104) H D 09/14/17 04:34 ABG O2 Saturation 100 % (95-98) H 09/14/17 04:34 PT/INR, D-dimer PT 19.1 Seconds (9.4-12.1) H 09/15/17 21:14 D-Dimer 1956 ng/mLFEU (0-500) H 09/14/17 18:45 - Impressions Impressions Chest X-Ray 09/16/17 06:00 IMPRESSION: 1. Minimal persistent left basilar airspace disease, likely atelectasis. 2. No discernible pneumothorax. D/ / Brien Meenndez MD / Brien Menendez MD Interpreting Provider: Brien Menendez MD Consult Discharge Plan - Plan Referrals: Amaris Hamilton MD [Primary Care Provider] - Kathi Hernández CNP [Advanced Practice Nurse] - 09/19/17 11:00 am Prescriptions: Ipratropium/Albuterol Neb [Duoneb] 3 ml IH Q6HR PRN 7 Days #28 [email or web address] PRN Reason: Shortness Of Breath
[2017-09-16] MEDS: traZODone 50 MG TABLET PO SCH (21:17)
[2017-09-16] MEDS: 0.9 % Sodium Chloride 1,000 ML IVC SCH (21:17)
[2017-09-17 00:20] LABS: INR 1.6; Prothrombin Time 17.6 Seconds (9.4-12.1)
[2017-09-17 00:22] LABS: Activated Partial Thrombo Time 65.6 Seconds (26.0-36.0)
[2017-09-17] MEDS: Heparin 25,000 UNIT/500 ML D5W 25,000 UNIT/500 ML BAG IVC SCH ×2 (00:50→15:57)
[2017-09-17] MEDS: 0.9 % Sodium Chloride 1,000 ML IVC SCH (01:15)
[2017-09-17] MEDS: Ipratropium/Albuterol Neb 3 ML IH SCH ×4 (03:42→22:40)
[2017-09-17] MEDS: Levothyroxine 25 MCG TABLET PO SCH (05:45)
[2017-09-17] MEDS: Amiodarone Premix 360 MG/200 ML BAG IVC SCH ×2 (06:03→19:59)
[2017-09-17 06:07] LABS: Basophils % 0.6 %; Hematocrit 28.1 % (35.3-44.9); Lymphocytes # 0.4 K/mcL (0.6-4.6); Lymphocytes % 8.4 %; Mean Corpuscular HGB Conc 33.1 g/dL (31.6-35.5); Mean Corpuscular Hemoglobin 27.2 pg (28.0-33.3); Mean Corpuscular Volume 82.2 fL (83.0-100.0); Mean Platelet Volume 11.6 fL (9.4-12.4); Monocytes # 0.8 K/mcL (0.0-1.3); Monocytes % 15.6 %; Red Blood Count 3.42 M/mcL (3.82-4.97); Red Cell Distribution Width 16.2 % (11.5-14.5); Segmented Neutrophils % 61.4 %
[2017-09-17 06:08] LABS: Hemoglobin 9.3 g/dL (11.5-15.4); Neutrophils # 3.1 K/mcL (1.6-8.9); Platelet Count 86 K/mcL (140-400)
[2017-09-17 06:09] LABS: Platelet Estimate Decreased (Normal)
[2017-09-17 06:29] LABS: BUN/Creatinine Ratio 38 (6-26); Blood Urea Nitrogen 27 mg/dL (8-23); Calcium 8.3 mg/dL (8.6-10.3); Carbon Dioxide 18 mEq/L (23-29); Chloride 104 mEq/L (98-107); Glucose 108 mg/dL (70-105); Osmolality,Calculated 272 (280-300); Potassium 4.6 mEq/L (3.5-5.1); Sodium 128 mEq/L (136-145); eGFR For African Americans > 60 (> 60); eGFR For Non-African Americans > 60 (> 60)
[2017-09-17] MEDS: ALPRAZolam 0.5 MG TABLET PO PRN ×2 (08:25→19:56)
[2017-09-17] MEDS: *HR* HYDROcodone/Acet 5/325 mg TABLET PO PRN ×2 (08:25→19:56)
[2017-09-17] MEDS: Metoprolol XL (24 HR) Succ 25 MG TAB.ER.24H PO SCH (08:26)
--- NOTE | 2017-09-17 09:33 | Cardiothoracic Progress Note ---
Date of Encounter: 09/17/17 Time of Encounter: 09:30 - Assessment and plan (1) Pericardial effusion Current Visit: Yes Status: Acute The patient is recovering well from her subxiphoid pericardial window. She remained hemodynamically stable overnight. The chest tube output is minimal on suction. The chest tube was removed. The pericardial fluid cytology is pending. The assessment and plan as outlined above was discussed with the patient and/or family members who expressed understanding and agreement. All questions were answered. - Subjective Procedure(s) Performed: POD#4 S/P Subxiphoid pericardial window Interval history: The patient remained hemodynamic stable overnight. She is breathing comfortably. Vital Signs, Last 4 Hours Temp Pulse Resp BP Pulse Ox 09/17/17 06:45 97.7 F 108 18 106/65 96 Oxgyen Flow Rate Oxygen Flow Rate (LPM) 4 Clinical Data, last 8 Hours Output, Chest Tube Drainage 10 Amount [Mediastinal #1] Weight 09/15/17 09/16/17 09/17/17 23:59 23:59 23:59 Weight 82.9 kg 85.3 kg - Physical Examination General: Conversant, No Apparent Distress Neck: No JVD, Normal carotid pulses Cardiac: Reg Rate and Rhythm, Normal S1 and S2, No Murmur Incision: No signs of infection, Dry/intact dressing Chest tubes: Minimal drainage, Other (No air leak) Lungs: Normal Breath Sounds, No Wheeze, Rales, Rhonchi Neuro: Alert and responsive, No focal deficits noted Vascular: Normal capillary refill Musculoskeletal: No Chest Wall Tenderness Extremities: No Clubbing, No Cyanosis, No Edema - Labs 09/17/17 04:00 09/17/17 04:00 Lab Results, Last 24 hours 09/16/17 09/16/17 09/16/17 10:00 18:00 23:55 WBC Hgb Hct Plt Count INR 1.6 APTT 85.4 H 96.2 H 65.6 H Sodium Potassium Chloride Carbon Dioxide BUN Creatinine Glucose Calcium 09/17/17 09/17/17 09/17/17 04:00 04:00 05:48 WBC 5.1 Hgb 9.3 L Hct 28.1 L Plt Count 86 L INR APTT 65.4 H Sodium 128 L Potassium 4.6 Chloride 104 Carbon Dioxide 18 L BUN 27 H Creatinine 0.72 Glucose 108 H Calcium 8.3 L - VTE Reasons for not Prescribing Prophylaxis: Medical contraindication (Chronic Blood Loss Anemia) Documentation of Mechanical Device: Intermittent pneumatic compression device Consult Discharge Plan - Plan Referrals: Amaris Hamilton MD [Primary Care Provider] - Kathi Hernández CNP [Advanced Practice Nurse] - 09/19/17 11:00 am Prescriptions: Ipratropium/Albuterol Neb [Duoneb] 3 ml IH Q6HR PRN 7 Days #28 [email or web address] PRN Reason: Shortness Of Breath
--- NOTE | 2017-09-17 13:14 | Electrocardiograph Report ---
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
--- NOTE | 2017-09-17 13:14 | Electrocardiograph Report ---
[address] [place], [place] [address] Test Date: 2017-09-16 Pat Name: Telma Burnett Department: 109 Room: 2N09 Gender: F Commercial Loan Coordinator: MONICA : 1950 Requested By: Мария Wright Order Number: [id number] Reading MD: Jaime Hughes Measurements Intervals [place] Rate: 169 P: [place]: 0 QRS: -10 QRSD: 104 T: 140 QT: 253 QTc: 345 Interpretive Statements ATRIAL FIBRILLATION WITH RAPID VENTRICULAR RESPONSE INFERIOR MYOCARDIAL INFARCTION, PROBABLY OLD ANTEROSEPTAL MYOCARDIAL INFARCTION, OF INDETERMINATE AGE Electronically Signed On 09-17-2017 10:05:17 EDT by Jaime Hughes
--- NOTE | 2017-09-17 16:58 | Electrocardiograph Report ---
[facility] Test Date: 2017-09-16 Pat Name: Telma Burnett Department: 109 Room: 2N09 Gender: F Women'S Health Care Nurse Practitioner: MONICA : 1950 Requested By: Liza Resendiz Order Number: [id number] Reading MD: Rashel Ferguson Measurements Intervals [place] Rate: 120 P: [place]: 0 QRS: -4 QRSD: 81 T: 122 QT: 286 QTc: 358 Interpretive Statements SINUS TACHYCARDIA ST ELEVATION, CONSIDER ANTERIOR INJURY Electronically Signed On 09-17-2017 16:56:44 EDT by Rashel Ferguson
[2017-09-17] MEDS: traZODone 50 MG TABLET PO SCH (19:56)
--- NOTE | 2017-09-17 23:43 | Internal Med Progress Note ---
Date of Encounter: 09/17/17 Time of Encounter: 10:27 - Assessment and plan (1) Symptomatic anemia Current Visit: Yes Status: Resolved Assessment and plan: Hemoglobin a little down. Transfuse to keep hemoglobin > 10.0. Pancytopenia workup with heme/onc consult and plan for bone marrow biopsy at some point - now maybe considering getting it done as outpatient. Appreciate heme/onc input and will get their final recommendations at discharge. Will continue IVF at low rate as per below. Continue vitamin B12 supplementation. Recheck CBC in AM. (2) Chronic blood loss anemia Current Visit: Yes Status: Chronic Assessment and plan: Management as per above. (3) Pancytopenia Current Visit: Yes Status: Chronic Assessment and plan: Heme/onc consulted; appreciate input. Plan as per above. (4) Hypotension Current Visit: Yes Status: Acute Assessment and plan: BP worse overnight with recurrence of tachycardia. Currently in step down, which is appropriate for now. Continue to treat anemia as per above. Gentle IVF as per below. Cardiology and CT surgery consulted; appreciate input. I spoke with smart energy specialist Dr. Pereira today, who will see patient. Continue to treat sinus tachycardia as per below. Stable now on amiodarone drip. Continue to hold home atenolol for now. Qualifiers: Hypotension type: unspecified hypotension type Qualified Code(s): I95.9 - Hypotension, unspecified (5) Chronic kidney disease Current Visit: Yes Status: Chronic Assessment and plan: History of CKD stage III. Creatinine WNL at this time. Recheck BMP in AM. Qualifiers: Chronic kidney disease stage: stage 3 (moderate) Qualified Code(s): N18.3 - Chronic kidney disease, stage 3 (moderate) (6) Weakness Current Visit: Yes Status: Acute Assessment and plan: Addressing anemia as per above. PT/OT consulted. (7) Hypothyroidism Current Visit: Yes Status: Chronic Assessment and plan: Continue home medications. Qualifiers: Hypothyroidism type: unspecified Qualified Code(s): E03.9 - Hypothyroidism , unspecified (8) Hyponatremia Current Visit: Yes Status: Acute Assessment and plan: Slightly decreased. Likely secondary to decreased oral intake. Continue gentle hydration with IV NS at 50 ml/hr. Consult software sales. (9) Elevated INR Current Visit: Yes Status: Acute Assessment and plan: INR 1.6 today. Will need 1.5 for bone marrow biopsy. Consider FFP if not normalizing and heme/onc wants to do BM biopsy as inpatient. Started on heparin drip per cardiology's recommendation. (10) Falls Current Visit: Yes Status: Chronic Assessment and plan: Addressing anemia as per above. PT/OT consulted. Qualifiers: Encounter type: sequela Qualified Code(s): W19.XXXS - Unspecified fall, sequela (11) Sinus tachycardia Current Visit: Yes Status: Acute Assessment and plan: Improved on amiodarone drip. Cardiology consulted; appreciate input. Also, on heparin drip now. S/P pericardiocentesis for pericardial effusion/cardiac tamponade. Repeat ECHO pending. Will await further cardiology recommendations today. I personally spoke with smart energy specialist Dr. Pereira, who will see patient today. CT surgery following; appreciate input. (12) DVT prophylaxis Current Visit: Yes Status: Acute Assessment and plan: Continue SCDs. History of GI bleed and anemia. - Time Spent With Patient Total time spent is greater than 50% in coordination of care (as documented) at patient's floor/unit and/or counseling patient: less than 15 minutes - Subjective Interval history: Patient had no acute events overnight, but still with some hypotension and tachycardia. I spoke with smart energy specialist Dr. Pereira, who stated that he would see patient today and make recommendations on the amiodarone drip and heparin drip she is currenly on. CT surgery signed off. Hemoglobin is a little down. She feels "ok" today, but I think she feels worse than she lets on. She denies chest pain, palpitations, SOB, fever, chills, nausea, vomiting, or abdominal pain. She has no discrete complaints at this time. - Constitutional Vitals: Temp Pulse Resp BP Pulse Ox 97.4 F L 104 16 103/72 97 09/17/17 19:54 09/17/17 19:54 09/17/17 19:54 09/17/17 19:54 09/17/17 19:54 General appearance: Present: cooperative, A&O X 3, pleasant, no acute distress, answers questions appropriately - Respiratory Respiratory exam: Present: CTAB. Absent: accessory muscle use, rales, rhonchi, wheezes Additional comments: Normal WOB - Cardiovascular Cardiovascular exam: Present: RRR, +S1, +S2. Absent: diastolic murmur, gallop, rubs, systolic murmur Additional comments: No BLE edema - GI/Abdominal GI/Abdominal exam: Present: normal bowel sounds, soft. Absent: distended, hepatomegaly, mass, splenomegaly, tenderness - Psychiatric Psychiatric exam: Present: normal affect, normal mood. Absent: agitated, anxious, depressed - Skin Skin exam: Present: dry, intact, warm. Absent: cyanosis, rash Internal Medicine: Result - Labs CBC & Chem 7: 09/17/17 04:00 09/17/17 04:00 Labs: Short CBC 09/17/17 Range/Units 04:00 WBC 5.1 (4.3-11.1) K/mcL Hgb 9.3 L (11.5-15.4) g/dL Hct 28.1 L (35.3-44.9) % Plt Count 86 L (140-400) K/mcL Neutrophils # 3.1 (1.6-8.9) K/mcL BMP 09/17/17 04:00 Sodium 128 L Potassium 4.6 Chloride 104 Carbon Dioxide 18 L BUN 27 H Creatinine 0.72 Glucose 108 H Calcium 8.3 L - ABG Interpretation ABG results: ABG ABG pH 7.39 pH Units (7.32-7.45) 09/14/17 04:34 ABG pCO2 34 mmHg (35-45) L 09/14/17 04:34 ABG pO2 217 mmHg (85-104) H D 09/14/17 04:34 ABG O2 Saturation 100 % (95-98) H 09/14/17 04:34 PT/INR, D-dimer PT 17.6 Seconds (9.4-12.1) H 09/16/17 23:55 D-Dimer 1956 ng/mLFEU (0-500) H 09/14/17 18:45 - Impressions Impressions Echocardiogram Limited Views 09/17/17 10:00 Impressions: Technically sub-optimal due to poor echocardiographic windows. LVEF 65-70%. Normal LV chamber size, wall thickness and function. Suboptimal image quality, but there appeared to be a very small inferolateral pericardial effusion. There is no echocardiographic evidence of tamponade. Left Ventricular Wall Motion: Rest Echo Findings All wall segments showed normal motion. Findings: Study Quality * Technically sub-optimal due to poor echocardiographic windows. ECG Findings * Normal sinus rhythm. Left Ventricle * LVEF 65-70%. * Normal LV chamber size, wall thickness and function. Right Ventricle * Normal right ventricular structure and function. Pericardium * Suboptimal image quality, but there appeared to be a very small inferolateral pericardial effusion. Prior anterior effusion has resolved. * There is no echocardiographic evidence of tamponade. - VTE Reasons for not Prescribing Prophylaxis: Medical contraindication (Chronic Blood Loss Anemia, GI Bleed) Documentation of Mechanical Device: Intermittent pneumatic compression device Consult Discharge Plan - Plan Referrals: Kathi Hernández PEANUT BUTTER MAKER [Advanced Practice Nurse] - 09/24/17 11:00 am Prescriptions: Ipratropium/Albuterol Neb [Duoneb] 3 ml IH Q6HR PRN 7 Days #28 vial.neb PRN Reason: Shortness Of Breath
[2017-09-18] MEDS: Ipratropium/Albuterol Neb 3 ML IH SCH ×4 (03:57→21:35)
[2017-09-18] MEDS: Levothyroxine 25 MCG TABLET PO SCH (05:41)
[2017-09-18 06:06] LABS: Mean Corpuscular HGB Conc 32.6 g/dL (31.6-35.5)
[2017-09-18 06:08] LABS: Hematocrit 26.1 % (35.3-44.9); Hemoglobin 8.5 g/dL (11.5-15.4); Immature Platelets 8.7 % (1.1-6.1); Mean Corpuscular Hemoglobin 26.9 pg (28.0-33.3); Mean Corpuscular Volume 82.6 fL (83.0-100.0); Mean Platelet Volume 12.9 fL (9.4-12.4); Red Blood Count 3.16 M/mcL (3.82-4.97)
[2017-09-18 06:22] LABS: Platelet Count 69 K/mcL (140-400)
[2017-09-18 06:27] LABS: BUN/Creatinine Ratio 42 (6-26); Blood Urea Nitrogen 27 mg/dL (8-23); Carbon Dioxide 17 mEq/L (23-29); Chloride 104 mEq/L (98-107); Glucose 94 mg/dL (70-105); Osmolality,Calculated 273 (280-300); Potassium 4.3 mEq/L (3.5-5.1); Sodium 129 mEq/L (136-145); eGFR For African Americans > 60 (> 60); eGFR For Non-African Americans > 60 (> 60)
[2017-09-18 06:41] LABS: Lymphocytes # 1.7 K/mcL (0.6-4.6); Monocytes # 0.8 K/mcL (0.0-1.3); Neutrophils # 1.9 K/mcL (1.6-8.9)
[2017-09-18 06:42] LABS: Hypochromasia Present (Not Present); Platelet Estimate Decreased (Normal)
[2017-09-18] MEDS: Metoprolol XL (24 HR) Succ 25 MG TAB.ER.24H PO SCH (08:04)
[2017-09-18 08:18] LABS: Thrombin Time 13.5 sec (14.7-19.5)
[2017-09-18] MEDS: Amiodarone Premix 360 MG/200 ML BAG IVC SCH (08:25)
[2017-09-18 12:05] LABS: Immature Reticulocyte % 22.7 % (11.0-38.0); Retculocyte # 0.04 M/mcL (0.05-0.10); Reticulocyte % 1.4 % (1.6-2.8)
[2017-09-18] MEDS: Heparin 25,000 UNIT/500 ML D5W 25,000 UNIT/500 ML BAG IVC SCH (12:09)
--- NOTE | 2017-09-18 13:00 | Cardiology Progress Note ---
Date of Encounter: 09/18/17 Time of Encounter: 12:56 Assessment and Plan (1) Atrial fibrillation Current Visit: Yes Status: Acute Atrial fibrillation with RVR during stay. Started on amiodarone gtt and converted to NSR. Will convert to oral amiodarone. In regards to fpc anticoagulation, she is a CHADS VASc4. Ideally AC with coumadin or NOAC would be recommended. Currently with acute on chronic anemia with Hgb trending back down and she is planning of possible bone marrow biopsy. Also noted to have thrombocytopenia. PLT 69. INR elevated on admission without AC. Re-check INR. Further recommendations from hematology regarding emt intermediate AC is appreciated. Qualifiers: Atrial fibrillation type: unspecified Qualified Code(s): I48.91 - Unspecified atrial fibrillation (2) Sinus tachycardia Current Visit: Yes Status: Acute Cardiology initially consulted for atrial tachycardia. Found to have sinus tachycardia in the setting of tamponade. Developed clear atrial fibrillation with RVR 02/16/18. (3) Cardiac tamponade Current Visit: Yes Status: Acute Found to have early tamponade with early diastolic RV collapse on review of TTE by cardiology team. S/p emergent pericardial window 09/13/17 with 500 ml removed. Noted to have elevated INR on admit. Repeat limited TTE shows small pericardial effusion. No tamponade. CT surgery following. (4) Acute anemia Current Visit: Yes Status: Acute Acute on chronic anemia noted prior to surgery. Hgb trending back down. Hematology following and planning possible bone marrow biopsy. Discussion w patient/family: The assessment and plan as outlined above was discussed with the patient and/or family members who expressed understanding and agreement. All questions were answered. Thank you for involving us in the care of your patient. Please call with any questions. Subjective Principal diagnosis: cardiac tamponade Interval history: Ms. Burnett is s/p pericardial window 09/13/17. She developed atrial fibrillation with RVR 02/16/18 and was started on amiodarone gtt. Cardiology re-consulted for management. Objective Vital Signs, Last 4 Hours Temp Pulse Resp BP Pulse Ox 09/18/17 12:04 97 09/18/17 12:02 98 16 89/57 97 09/18/17 11:44 97.6 F 101 18 106/60 96 09/18/17 10:38 96 18 98/68 97 General: Conversant, No Apparent Distress HEENT: Atraumatic, Normocephaly, Mucus Membranes Moist Neck: No JVD, Normal carotid pulses Cardiac: Reg Rate and Rhythm, Normal S1 and S2, No Murmur Lungs: Normal Breath Sounds, No Wheeze, Rales, Rhonchi Neuro: Alert and responsive, No focal deficits noted Abdomen: Soft, Non-Tender, Other (Mildly tender over chest tube incisions. ) Skin: No rashes noted on visualized skin Musculoskeletal: No Chest Wall Tenderness Extremities: No Clubbing, No Cyanosis, No Edema, Normal Pulses Results 09/18/17 05:40 09/18/17 05:40 Lab Results 09/18/17 09/18/17 09/18/17 05:40 05:40 05:40 WBC 4.6 Hgb 8.5 L Hct 26.1 L Plt Count 69 L APTT 65.3 H Sodium 129 L Potassium 4.3 Chloride 104 Carbon Dioxide 17 L BUN 27 H Creatinine 0.64 Glucose 94 Calcium 8.0 L - Imaging and Cardiology Echo: report reviewed - EKG Interpretation EKG results cardiology: personally reviewed - VTE Reasons for not Prescribing Prophylaxis: Medical contraindication (Chronic Blood Loss Anemia, GI Bleed) Documentation of Mechanical Device: Intermittent pneumatic compression device Consult Discharge Plan - Plan Referrals: Kathi Hernández PACK OPERATOR [Advanced Practice Nurse] - 09/24/17 11:00 am Prescriptions: Ipratropium/Albuterol Neb [Duoneb] 3 ml IH Q6HR PRN 7 Days #28 vial.neb PRN Reason: Shortness Of Breath
[2017-09-18 14:04] LABS: INR 1.6; Prothrombin Time 17.7 Seconds (9.4-12.1)
[2017-09-18] MEDS: *HR* Amiodarone 200 MG TABLET PO SCH (15:16)
[2017-09-18] MEDS: ALPRAZolam 0.5 MG TABLET PO PRN ×2 (15:16→19:30)
--- NOTE | 2017-09-18 16:21 | Internal Med Progress Note ---
Date of Encounter: 09/18/17 Time of Encounter: 09:45 - Assessment and plan (1) Atrial fibrillation Current Visit: Yes Status: Acute Assessment and plan: Discussed with cardiology, telemetry review showed paroxysmal atrial fibrillation. Has been on IV amiodarone drip, anticoagulation with IV heparin drip. Plan to switch to by mouth amiodarone. Currently rate controlled. Continue telemetry monitoring. Patient may not be a candidate for long-term anticoagulation at this time due to ongoing workup for pancytopenia and pending bone marrow biopsy. We will discuss with hematology. Qualifiers: Atrial fibrillation type: paroxysmal Qualified Code(s): I48.0 - Paroxysmal atrial fibrillation (2) Pancytopenia Current Visit: Yes Status: Chronic Assessment and plan: Uncertain etiology. Reticulocyte count noted to be low. Pending bone marrow biopsy to rule out myelodysplasia. Iron profile showed significantly elevated Ferritin and low iron; recent EGD/colonoscopy showed no source of active bleeding; Case discussed with hematology, given patient's pancytopenia, elevated CRP, pericardial effusion/tamponade, suspicion for autoimmune disease like SLE. We will discuss with rheumatology regarding benefits of steroid treatment. (3) DVT prophylaxis Current Visit: Yes Status: Acute (4) Symptomatic anemia Current Visit: Yes Status: Resolved Assessment and plan: Continues to have gradual drop in hemoglobin, 8.5 today. Continue to monitor closely, may require another unit of PRBC transfusion. (5) Hypothyroidism Current Visit: Yes Status: Chronic Qualifiers: Hypothyroidism type: unspecified Qualified Code(s): E03.9 - Hypothyroidism , unspecified (6) Hyponatremia Current Visit: Yes Status: Acute (7) Elevated INR Current Visit: Yes Status: Acute Assessment and plan: Unclear etiology. INR noted to be 3 at admission, currently at 1.6. (8) Falls Current Visit: Yes Status: Chronic Assessment and plan: Generalized weakness secondary to anemia. Physical and occupational therapy evaluation completed. Patient is accepted at inpatient rehabilitation, when medically stable. Qualifiers: Encounter type: sequela Qualified Code(s): W19.XXXS - Unspecified fall, sequela (9) Cardiac tamponade Current Visit: Yes Status: Acute Assessment and plan: Noted to have evidence of early cardiac tamponade on initial echocardiogram. Cardiothoracic surgery was consulted, underwent subxiphoid pericardiocentesis. Fluid analysis negative for infection. Repeat echocardiogram showed no significant pericardial effusion or tamponade. Continue supportive care and supplemental oxygen. - Time Spent With Patient Total time spent is greater than 50% in coordination of care (as documented) at patient's floor/unit and/or counseling patient: - Subjective Interval history: Feels tired and reports generalized weakness; no chest pain, shortness of breath , nausea, vomiting; no hematochezia, melena; - Constitutional Vitals: Temp Pulse Resp BP Pulse Ox 97.6 F 99 16 109/60 97 09/18/17 11:44 09/18/17 15:26 09/18/17 15:41 09/18/17 15:23 09/18/17 15:41 General appearance: Present: A&O X 3 (appears pale and fatigued), answers questions appropriately - Respiratory Respiratory exam: Present: CTAB. Absent: accessory muscle use, rales, rhonchi, wheezes - Cardiovascular Cardiovascular exam: Present: RRR, +S1, +S2. Absent: diastolic murmur, gallop, rubs, systolic murmur - GI/Abdominal GI/Abdominal exam: Present: normal bowel sounds, soft, no peritoneal signs. Absent: distended, tenderness - Extremities Exam Extremities exam: Present: full ROM, pedal edema, warm, radial pulses palpable and symmetrical. Absent: calf tenderness, cyanotic Additional comments: peripheral edema B/L - Neurological Exam Neurological exam: Present: CN II-XII intact, oriented X3, no focal deficits. Absent: pronater drift, facial droop, speech deficit - Skin Skin exam: Present: dry, intact, pallor Internal Medicine: Result - Labs CBC & Chem 7: 09/18/17 05:40 09/18/17 05:40 Labs: Short CBC 09/18/17 Range/Units 05:40 WBC 4.6 (4.3-11.1) K/mcL Hgb 8.5 L (11.5-15.4) g/dL Hct 26.1 L (35.3-44.9) % Plt Count 69 L (140-400) K/mcL Neutrophils # 1.9 (1.6-8.9) K/mcL BMP 09/18/17 05:40 Sodium 129 L Potassium 4.3 Chloride 104 Carbon Dioxide 17 L BUN 27 H Creatinine 0.64 Glucose 94 Calcium 8.0 L - ABG Interpretation ABG results: ABG ABG pH 7.39 pH Units (7.32-7.45) 09/14/17 04:34 ABG pCO2 34 mmHg (35-45) L 09/14/17 04:34 ABG pO2 217 mmHg (85-104) H D 09/14/17 04:34 ABG O2 Saturation 100 % (95-98) H 09/14/17 04:34 PT/INR, D-dimer PT 17.7 Seconds (9.4-12.1) H 09/18/17 13:11 D-Dimer 1956 ng/mLFEU (0-500) H 09/14/17 18:45 - Impressions Impressions Chest X-Ray 09/13/17 22:47 IMPRESSION: 1. Well-positioned endotracheal tube. 2. Tip of the right-sided central venous line extends to the level of the right atrium. Consider retraction by approximately 3-4 cm. D/ / 09/14/2017 06:59:56 Rome Tiwari MD / joanna Interpreting Provider: Rome Tiwari MD - VTE Reasons for not Prescribing Prophylaxis: Medical contraindication (Chronic Blood Loss Anemia, GI Bleed) Documentation of Mechanical Device: Intermittent pneumatic compression device Consult Discharge Plan - Plan Referrals: Kathi Hernández FOLDED CLOTH TAPER [Advanced Practice Nurse] - 09/24/17 11:00 am Prescriptions: Ipratropium/Albuterol Neb [Duoneb] 3 ml IH Q6HR PRN 7 Days #28 vial.neb PRN Reason: Shortness Of Breath
--- NOTE | 2017-09-18 16:24 | Electrocardiograph Report ---
[address] [place] [address] Test Date: 2017-09-16 Pat Name: Telma Burnett Department: 109 Room: 2N09 Gender: F Radioisotope Technician: MONICA : 1950 Requested By: Liza Resendiz Order Number: [id number] Reading MD: Edna Alcala Measurements Intervals [place] Rate: 155 P: MO: 0 QRS: -8 QRSD: 102 T: 143 QT: 280 QTc: 367 Interpretive Statements ATRIAL FIBRILLATION WITH RAPID VENTRICULAR RESPONSE WITH ABERRANT CONDUCTION OR VENTRICULAR PREMATURE COMPLEXES INFERIOR MYOCARDIAL INFARCTION, PROBABLY OLD ANTEROSEPTAL MYOCARDIAL INFARCTION, OF INDETERMINATE AGE MODERATE T-WAVE ABNORMALITY, CONSIDER LATERAL ISCHEMIA Electronically Signed On 09-18-2017 16:22:55 EDT by Edna Alcala
[2017-09-18] MEDS: *HR* Heparin 5,000 UNIT/ML VIAL SQ SCH (18:10)
[2017-09-18] MEDS: *HR* HYDROcodone/Acet 5/325 mg TABLET PO PRN (19:30)
[2017-09-18] MEDS: traZODone 50 MG TABLET PO SCH (19:30)
[2017-09-19] MEDS: *HR* HYDROcodone/Acet 5/325 mg TABLET PO PRN ×2 (00:07→15:55)
[2017-09-19] MEDS: Ipratropium/Albuterol Neb 3 ML IH SCH ×4 (03:55→21:11)
[2017-09-19 04:31] LABS: Hemoglobin 8.2 g/dL (11.5-15.4)
[2017-09-19 04:33] LABS: Hematocrit 24.7 % (35.3-44.9); Immature Platelets 11.5 % (1.1-6.1); Mean Corpuscular HGB Conc 33.2 g/dL (31.6-35.5); Mean Corpuscular Hemoglobin 27.7 pg (28.0-33.3); Mean Corpuscular Volume 83.4 fL (83.0-100.0); Nucleated Red Blood Cells 0.8 /100 WBC (0); Red Blood Count 2.96 M/mcL (3.82-4.97)
[2017-09-19 04:35] LABS: Platelet Count 66 K/mcL (140-400)
[2017-09-19 04:50] LABS: BUN/Creatinine Ratio 38 (6-26); Blood Urea Nitrogen 23 mg/dL (8-23); Calcium 8.2 mg/dL (8.6-10.3); Carbon Dioxide 18 mEq/L (23-29); Chloride 108 mEq/L (98-107); Glucose 88 mg/dL (70-105); Osmolality,Calculated 279 (280-300); Potassium 4.9 mEq/L (3.5-5.1); Sodium 133 mEq/L (136-145); eGFR For African Americans > 60 (> 60); eGFR For Non-African Americans > 60 (> 60)
[2017-09-19 05:50] LABS: Lymphocytes # 0.6 K/mcL (0.6-4.6); Neutrophils # 3.4 K/mcL (1.6-8.9); Platelet Estimate Decreased (Normal)
[2017-09-19 05:51] LABS: Hypochromasia Present (Not Present); Large Platelets Present (Not Present)
[2017-09-19] MEDS: *HR* Heparin 5,000 UNIT/ML VIAL SQ SCH (06:59)
[2017-09-19] MEDS: Levothyroxine 25 MCG TABLET PO SCH (06:59)
[2017-09-19] MEDS: Metoprolol XL (24 HR) Succ 25 MG TAB.ER.24H PO SCH (08:59)
[2017-09-19] MEDS: *HR* Amiodarone 200 MG TABLET PO SCH ×2 (09:00→22:11)
--- NOTE | 2017-09-19 10:51 | Cardiology Progress Note ---
Date of Encounter: 09/19/17 Time of Encounter: 10:48 Assessment and Plan (1) Atrial fibrillation Current Visit: Yes Status: Acute Atrial fibrillation with RVR during stay. Started on amiodarone gtt and converted to NSR and converted to oral amiodarone yesterday. Due to hypotension amiodarone continued. On low dose toprol XL. Avg HR overnight was 99 bpm. Recurrent atrial fibrillation with RVR last night, HR up to 170. Now she is sinus tachycardia. WIll repeat EKG. In regards to fpc anticoagulation, she is a CHADS VASc4. Ideally AC with coumadin or NOAC would be recommended. Currently with acute on chronic anemia with Hgb trending back down and PLT trending down. I called and discussed with Fabiola Macario CNP with hematology. There is concern with decreasing PLT. She will discuss further with airport refueling handler on recommendations for terminal worker AC. Qualifiers: Atrial fibrillation type: paroxysmal Qualified Code(s): I48.0 - Paroxysmal atrial fibrillation (2) Sinus tachycardia Current Visit: Yes Status: Acute Cardiology initially consulted for atrial tachycardia. Found to have sinus tachycardia in the setting of tamponade. Developed clear atrial fibrillation with RVR 02/16/18. (3) Cardiac tamponade Current Visit: Yes Status: Acute Found to have early tamponade with early diastolic RV collapse on review of TTE by cardiology team. S/p emergent pericardial window 09/13/17 with 500 ml removed. Noted to have elevated INR on admit. Repeat limited TTE shows small pericardial effusion. No tamponade. CT surgery following. (4) Acute anemia Current Visit: Yes Status: Acute Acute on chronic anemia noted prior to surgery. Hgb trending back down. Hematology following and planning possible bone marrow biopsy. Discussion w patient/family: The assessment and plan as outlined above was discussed with the patient and/or family members who expressed understanding and agreement. All questions were answered. Thank you for involving us in the care of your patient. Please call with any questions. Subjective Principal diagnosis: cardiac tamponade Interval history: Ms. Brunett is s/p pericardial window 09/13/17. She developed atrial fibrillation with RVR 02/16/18 and was started on amiodarone gtt. Cardiology re-consulted for management. No new events overnight. She is declining bone marrow biopsy. Objective Vital Signs, Last 4 Hours Temp Pulse Resp BP Pulse Ox 09/19/17 10:27 117 20 96 09/19/17 09:10 116 09/19/17 09:04 118 20 97 09/19/17 07:02 97.7 F 96 18 95/62 97 General: Conversant, No Apparent Distress HEENT: Atraumatic, Normocephaly, Mucus Membranes Moist Neck: No JVD Cardiac: Reg Rate and Rhythm, Other (sinus tachycardia) Lungs: Normal Breath Sounds, No Wheeze, Rales, Rhonchi Neuro: Alert and responsive, No focal deficits noted Skin: No rashes noted on visualized skin Extremities: No Clubbing, No Cyanosis, Normal Pulses, Other (Trace Edema BLE ) Results 09/19/17 04:00 09/19/17 04:00 Lab Results 09/18/17 09/19/17 09/19/17 13:11 04:00 04:00 WBC 5.3 Hgb 8.2 L Hct 24.7 L Plt Count 66 L INR 1.6 Sodium 133 L Potassium 4.9 Chloride 108 H Carbon Dioxide 18 L BUN 23 Creatinine 0.60 Glucose 88 Calcium 8.2 L - Imaging and Cardiology Echo: report reviewed - EKG Interpretation EKG results cardiology: personally reviewed - VTE Reasons for not Prescribing Prophylaxis: Medical contraindication (Chronic Blood Loss Anemia, GI Bleed) Documentation of Mechanical Device: Intermittent pneumatic compression device Consult Discharge Plan - Plan Referrals: Kathi Hernández FARM EQUIPMENT ENGINEER [Advanced Practice Nurse] - 09/24/17 11:00 am Prescriptions: Ipratropium/Albuterol Neb [Duoneb] 3 ml IH Q6HR PRN 7 Days #28 vial.neb PRN Reason: Shortness Of Breath
[2017-09-19] MEDS ORDERED: 0.9 % Sodium Chloride 250 ML ONE (12:56)
--- NOTE | 2017-09-19 15:22 | Oncology Inp Progress Note ---
Date of Encounter: 09/19/17 Time of Encounter: 14:30 (1) Pancytopenia Current Visit: Yes Status: Chronic Assessment and plan: Stable. Etiology remains unclear. Evolving leukemia/MDS remains a concern.However, patient continues to refuse bone marrow biopsy at this time, states she wishes to pursue rehabilitation and may consider bone marrow in future if her overall condition improves. Underlying autoimmune/connective tissue disorder remains consideration. DAWOOD is still pending. ESR 33. CRP 169 Recommend consultation with rheumatology, rheumatology not available at this time and patient is planned for likely outpatient follow up fred next week. Appreciate further input by rheumatology. Mild splenomegaly with adenopathy noted on CT abdomen/pelvis July 2017 Will arrange for follow up with Dr. Abraham as an outpatient, ideally following follow up with rheumatology. Cardiac biopsy- cytology pending, pericardial biopsy: Mesothelium and benign soft tissue with reactive changes. (2) Elevated INR Current Visit: Yes Status: Acute Assessment and plan: PT/INR, PTT have improved since pericardial window and recently stabilized, while still elevated. Following review of multiple coagulation studies, appears to be consistent with liver insufficiency secondary to hepatic congestion related to her pericardial effusion and right heart failure (3) Atrial fibrillation Current Visit: Yes Status: Acute Assessment and plan: Discussed case with cardiology SALES DESIGNER. Cardiology requesting recommendations from hematology/oncology for [facility] anticoagulation use for A-Fib in light of patients cytopenias/coagulopathy As noted previously, recent EGD/Colonoscopy did not reveal any source of active bleeding. Coagulopathy discussed above, appears to be secondary to liver insufficiency, not inhibitor. Cytopenias appear stable and may potentially be chronic in nature pending further rheumatological workup. Hematology would agree with Xarelto therapy, initiation and dosing per cardiology. Patient is planned to be discharged to rehabilitation facility, would recommend checking CBC 1-2 times per week and holding Xarelto for acute decrease in Hgb or if platelets drop below 50,000. Please refer to Dr. Schilling's attestation below for additional details. Qualifiers: Atrial fibrillation type: paroxysmal Qualified Code(s): I48.0 - Paroxysmal atrial fibrillation Oncology: Subj Interval history: Ms. Burnett is resting in bed. Her family is at bedside. She denies pain, SOB, dizziness, nausea or vomiting. Denies needs at this time. Plan of care discussed at bedside today. - Constitutional Vitals: Vital Signs Temp Pulse Resp BP Pulse Ox 09/19/17 14:54 111 20 90/63 98 09/19/17 13:16 97.7 F 111 18 97/57 95 09/19/17 13:13 97.1 F L 112 18 95/70 95 09/19/17 13:05 97.1 F L 111 20 95/70 96 09/19/17 12:50 116 20 98/74 99 09/19/17 10:49 17 95 09/19/17 10:27 117 20 96 09/19/17 09:10 116 09/19/17 09:04 118 20 97 09/19/17 07:02 97.7 F 96 18 95/62 97 09/19/17 04:20 97.8 F 97 21 95/50 98 09/19/17 03:55 16 95 09/19/17 00:05 97.4 F L 98 16 87/53 97 09/18/17 21:35 16 97 09/18/17 19:40 101 09/18/17 19:15 98.1 F 103 18 103/51 97 09/18/17 18:00 102 20 132/92 98 09/18/17 16:30 97.7 F 109 18 122/74 98 09/18/17 15:41 16 97 09/18/17 15:26 99 09/18/17 15:23 97 20 109/60 97 Intake and Output 09/18/17 09/19/17 09/19/17 23:59 07:59 15:59 Intake Total 400 / 400 120 / 120 Output Total 100 / 100 500 / 500 200 / 200 Balance 300 / 300 -500 / -500 -80 / -80 Intake: Oral 400 / 400 120 / 120 Blood Product 0 / 0 Rbcs Leuko Poor As-1 Unit 0 / 0 [id number] Output: Urine 100 / 100 500 / 500 200 / 200 Other: Meal Dinner Lunch Percent of Meal Consumed 0% 10% Weight 85.1 kg Patient Weight 09/19/17 23:59 Weight 85.1 kg General appearance: cooperative, no acute distress, no febrile Exam: chronically ill appearing - Head Head exam: Present: atraumatic - ENT ENT exam: Present: mucous membranes moist - Respiratory Respiratory exam: Present: CTAB. Absent: respiratory distress - Cardiovascular Cardiovascular exam: Present: RRR, +S1, +S2 - GI/Abdominal GI/Abdominal exam: Present: distended, normal bowel sounds, soft. Absent: tenderness - Extremities Exam Extremities exam: Absent: calf tenderness Additional comments: +1 BLE non pitting edema - Neurological Exam Neurological exam: Present: alert, oriented X3, no focal deficits, strengths equal and symetr throughout - Psychiatric Psychiatric exam: Present: normal affect, normal mood - Skin Skin exam: Present: dry, pallor, warm Oncology: Obj Data - Labs CBC & Chem 7: 09/19/17 04:00 09/19/17 04:00 Labs: Laboratory Results - last 24 hr 09/19/17 09/19/17 09/19/17 04:00 04:00 10:42 WBC 5.3 RBC 2.96 L Hgb 8.2 L Hct 24.7 L MCV 83.4 MCH 27.7 L MCHC 33.2 RDW 16.0 H Plt Count 66 L MPV TNP Seg Neutrophils % 44.0 Band Neutrophils % 20.0 H Lymphocytes % 12.0 Monocytes % 18.0 Metamyelocytes % 4.0 H Myelocytes % 2.0 H Neutrophils # 3.4 Lymphocytes # 0.6 Monocytes # 1.0 Nucleated RBCs/100 WBC 0.8 H Platelet Estimate Decreased L Large Platelets Present A Immature Plt Fraction 11.5 H Hypochromasia Present A Sodium 133 L Potassium 4.9 Chloride 108 H Carbon Dioxide 18 L BUN 23 Creatinine 0.60 Est GFR ( Amer) > 60 Est GFR (Non-Af Amer) > 60 BUN/Creatinine Ratio 38 H Glucose 88 Calculated Osmolality 279 L Calcium 8.2 L Blood Type B POSITIVE Antibody Screen NEGATIVE Crossmatch See Detail - ABG Interpretation ABG results: ABG ABG pH 7.39 pH Units (7.32-7.45) 09/14/17 04:34 ABG pCO2 34 mmHg (35-45) L 09/14/17 04:34 ABG pO2 217 mmHg (85-104) H D 09/14/17 04:34 ABG O2 Saturation 100 % (95-98) H 09/14/17 04:34 PT/INR, D-dimer PT 17.7 Seconds (9.4-12.1) H 09/18/17 13:11 D-Dimer 1956 ng/mLFEU (0-500) H 09/14/17 18:45 Consult Discharge Plan - Plan Referrals: Kathi Hernández CNP [Advanced Practice Nurse] - 09/24/17 11:00 am Prescriptions: Ipratropium/Albuterol Neb [Duoneb] 3 ml IH Q6HR PRN 7 Days #28 vial.neb PRN Reason: Shortness Of Breath
--- NOTE | 2017-09-19 17:42 | Internal Med Progress Note ---
Date of Encounter: 09/19/17 Time of Encounter: 17:40 - Assessment and plan (1) Atrial fibrillation Current Visit: Yes Status: Acute Assessment and plan: Has been on IV amiodarone drip, anticoagulation with IV heparin drip. continues to have sinus tachycardia, Amiodarone has been increased to BID for a week, to decrease to daily later; appreciate Cardiology recommendations; Continue telemetry monitoring. d/w Hematology, patient can be started on Xarelto with regular CBC monitoring; Qualifiers: Atrial fibrillation type: paroxysmal Qualified Code(s): I48.0 - Paroxysmal atrial fibrillation (2) Pancytopenia Current Visit: Yes Status: Chronic Assessment and plan: Uncertain etiology. Reticulocyte count noted to be low. Pending bone marrow biopsy to rule out myelodysplasia. Iron profile showed significantly elevated Ferritin and low iron; recent EGD/colonoscopy showed no source of active bleeding; Case discussed with hematology, given patient's pancytopenia, elevated CRP, pericardial effusion/tamponade, suspicion for autoimmune disease like SLE. Rheumatology not available this week; plan to discharge patient to ECF when medically stable, with early outpatient Rheumatology appointment; patient is not agreeable with inpatient BM biopsy at this time; d/w Hematology, agree with d/c to ECF; noted to have 20% bands today, unclear etiology; no evidence of infection; (3) DVT prophylaxis Current Visit: Yes Status: Acute (4) Symptomatic anemia Current Visit: Yes Status: Acute Assessment and plan: Continues to have gradual drop in hemoglobin, 8.2 today. Continue to monitor closely, will give another unit of PRBC transfusion today. (5) Hypothyroidism Current Visit: Yes Status: Chronic Qualifiers: Hypothyroidism type: unspecified Qualified Code(s): E03.9 - Hypothyroidism , unspecified (6) Hyponatremia Current Visit: Yes Status: Acute Assessment and plan: sodium improved to 133 today; (7) Elevated INR Current Visit: Yes Status: Acute Assessment and plan: Per Hematology note, likely due to CHF and hepatic congestion. INR noted to be 3 at admission, currently at 1.6. (8) Falls Current Visit: Yes Status: Chronic Qualifiers: Encounter type: sequela Qualified Code(s): W19.XXXS - Unspecified fall, sequela (9) Cardiac tamponade Current Visit: Yes Status: Acute Assessment and plan: Noted to have evidence of early cardiac tamponade on initial echocardiogram. Cardiothoracic surgery was consulted, underwent subxiphoid pericardiocentesis. Fluid analysis negative for infection. Repeat echocardiogram showed no significant pericardial effusion or tamponade. Continue supportive care and supplemental oxygen. - Time Spent With Patient Total time spent is greater than 50% in coordination of care (as documented) at patient's floor/unit and/or counseling patient: - Subjective Interval history: Appears better today, sitting up in chair; insists on being discharged to rehab stating that "she's just very anxious and restless, cannot stay here anymore". Explained to her regarding the need for PRBC transfusion, uncontrolled HR, and discussed BM biopsy; she stated she may consider biopsy only after recovering at rehab; she was in tears as she cannot be medically discharged, offered comfort; - Constitutional Vitals: Temp Pulse Resp BP Pulse Ox 98.4 F 110 18 109/70 100 09/19/17 15:52 09/19/17 16:00 09/19/17 15:52 09/19/17 15:52 09/19/17 15:52 General appearance: Present: A&O X 3, answers questions appropriately - Respiratory Respiratory exam: Present: CTAB. Absent: accessory muscle use, rales, rhonchi, wheezes - Cardiovascular Cardiovascular exam: Present: RRR, +S1, +S2, tachycardia. Absent: diastolic murmur, gallop, rubs, systolic murmur - GI/Abdominal GI/Abdominal exam: Present: normal bowel sounds, soft, no peritoneal signs. Absent: distended, tenderness - Extremities Exam Extremities exam: Present: pedal edema, warm, radial pulses palpable and symmetrical. Absent: calf tenderness, cyanotic Additional comments: B/L peripheral edema Internal Medicine: Result - Labs CBC & Chem 7: 09/19/17 04:00 09/19/17 04:00 Labs: Short CBC 09/19/17 Range/Units 04:00 WBC 5.3 (4.3-11.1) K/mcL Hgb 8.2 L (11.5-15.4) g/dL Hct 24.7 L (35.3-44.9) % Plt Count 66 L (140-400) K/mcL Neutrophils # 3.4 (1.6-8.9) K/mcL BMP 09/19/17 04:00 Sodium 133 L Potassium 4.9 Chloride 108 H Carbon Dioxide 18 L BUN 23 Creatinine 0.60 Glucose 88 Calcium 8.2 L - ABG Interpretation ABG results: ABG ABG pH 7.39 pH Units (7.32-7.45) 09/14/17 04:34 ABG pCO2 34 mmHg (35-45) L 09/14/17 04:34 ABG pO2 217 mmHg (85-104) H D 09/14/17 04:34 ABG O2 Saturation 100 % (95-98) H 09/14/17 04:34 PT/INR, D-dimer PT 17.7 Seconds (9.4-12.1) H 09/18/17 13:11 D-Dimer 1956 ng/mLFEU (0-500) H 09/14/17 18:45 - VTE Reasons for not Prescribing Prophylaxis: Medical contraindication (Chronic Blood Loss Anemia, GI Bleed) Documentation of Mechanical Device: Intermittent pneumatic compression device Consult Discharge Plan - Plan Referrals: Kathi Hernández CRIME DATA SPECIALIST [Advanced Practice Nurse] - 09/24/17 11:00 am Prescriptions: Ipratropium/Albuterol Neb [Duoneb] 3 ml IH Q6HR PRN 7 Days #28 vial.neb PRN Reason: Shortness Of Breath
[2017-09-19] MEDS: traZODone 50 MG TABLET PO SCH (22:11)
[2017-09-19] MEDS: ALPRAZolam 0.5 MG TABLET PO PRN (22:11)
[2017-09-20] MEDS: Ipratropium/Albuterol Neb 3 ML IH SCH ×2 (03:42→10:50)
[2017-09-20] MEDS: Levothyroxine 25 MCG TABLET PO SCH (06:21)
[2017-09-20 06:41] VITALS: BP 109/89
[2017-09-20 06:56] LABS: Hemoglobin 9.5 g/dL (11.5-15.4); Mean Corpuscular Volume 83.1 fL (83.0-100.0)
[2017-09-20 06:57] LABS: Hematocrit 28.1 % (35.3-44.9); Immature Platelets 10.6 % (1.1-6.1); Mean Corpuscular HGB Conc 33.8 g/dL (31.6-35.5); Mean Corpuscular Hemoglobin 28.1 pg (28.0-33.3); Red Blood Count 3.38 M/mcL (3.82-4.97); Red Cell Distribution Width 15.8 % (11.5-14.5)
[2017-09-20 06:58] LABS: Nucleated Red Blood Cells 0.2 /100 WBC (0)
[2017-09-20 07:13] LABS: BUN/Creatinine Ratio 32 (6-26); Blood Urea Nitrogen 19 mg/dL (8-23); Calcium 8.3 mg/dL (8.6-10.3); Carbon Dioxide 19 mEq/L (23-29); Chloride 104 mEq/L (98-107); Glucose 84 mg/dL (70-105); Osmolality,Calculated 271 (280-300); Potassium 4.8 mEq/L (3.5-5.1); Sodium 130 mEq/L (136-145); eGFR For African Americans > 60 (> 60); eGFR For Non-African Americans > 60 (> 60)
[2017-09-20 07:56] LABS: Platelet Count 81 K/mcL (140-400)
[2017-09-20 09:43] LABS: Lymphocytes # 0.6 K/mcL (0.6-4.6); Monocytes # 1.5 K/mcL (0.0-1.3); Neutrophils # 5.6 K/mcL (1.6-8.9)
[2017-09-20 09:45] LABS: Anisocytosis 1+ (Not Present); Platelet Estimate Decreased (Normal); Poikilocytosis 1+ (Not Present)
[2017-09-20] MEDS: Metoprolol XL (24 HR) Succ 25 MG TAB.ER.24H PO SCH (09:48)
[2017-09-20] MEDS: *HR* Amiodarone 200 MG TABLET PO SCH (09:48)
--- NOTE | 2017-09-20 10:17 | Discharge Summary ---
- NOTES TO OUTPATIENT PROVIDER Notes to Outpatient Provider: Needs Rheumatology appt for possible autoimmune connective tissue disorders; pending BM biopsy per Hematology;. unexplained anemia/thrombocytopenia; started on Xarelto and Amiodarone for new A.fib; had pericardiocentesis doen for cardiac tamponade; Orders not resulted at time of discharge: Pending orders 09/10/17 22:01 Occult Blood,Stool [BF] Routine 09/13/17 22:12 AFB Culture, Body Fluid [TB] Routine AFB Smear [TB] Routine Fungal Culture [MYC] Routine 09/14/17 18:45 Thrombin Time Routine Date of Encounter: 09/20/17 Time of Encounter: 10:15 - Discharge Diagnosis (1) Atrial fibrillation Priority: Primary Status: Acute Qualifiers: Atrial fibrillation type: paroxysmal Qualified Code(s): I48.0 - Paroxysmal atrial fibrillation (2) Pancytopenia Priority: Primary Status: Chronic (3) Symptomatic anemia Priority: Primary Status: Deleted (4) Hypothyroidism Priority: Secondary Status: Chronic Qualifiers: Hypothyroidism type: unspecified Qualified Code(s): E03.9 - Hypothyroidism , unspecified (5) Hyponatremia Priority: Primary Status: Chronic (6) Elevated INR Priority: Primary Status: Acute (7) Falls Priority: Primary Status: Chronic Qualifiers: Encounter type: sequela Qualified Code(s): W19.XXXS - Unspecified fall, sequela (8) Cardiac tamponade Priority: Primary Status: Acute Hospital course: Ms. Burnett is a 67 year old female with the above medical problems, admitted with symptomatic anemia. She was noted to have unexplained anemia and thrombocytopenia, was evaluated by Hematology during previous admission, planned for outpatient BM biopsy for possible myelosuppression, MDS. She received PRBC transfusions and Hb remained fairly stable. Anemia workup Noted to have B12 deficiency; reticulocyte count was low. she developed respiratory distress and tachycardia, Echo showed pericardial effusion and e/o- tamponade. CT surgery was consulted, underwent pericardiocentesis, recovered well. Continued to have tachycardia, Cardiology was reconsulted, has PAF, started on Amiodarone and IV Heparin drips, subsequently converted to PO Amiodarone and Xarelto. Patient was noted to have slightly elevated CRP, along with anemia and pericardial effusion, DAWOOD pending, suspicion for connective tissue disorders, inpatient Rheumatology consult was not available, recommend early outpatient f/ up. Patient declined inpatient BM biopsy due to prolonged hospitalization and profound weakness, she was eager to be discharged to rehab and wanted to get biopsy done as outpatient. Case was d/w Hematology and Cardiology, patient is otherwise stable for discharge. Discharge discussed with: patient, nurse - Time Spent with Patient Total time spent providing and/or coordinating discharge services: Greater than 30 minutes (50 min) - Discharge Medications Prescriptions: Ipratropium/Albuterol Neb [Duoneb] 3 ml IH Q6HR PRN 7 Days #28 vial.neb PRN Reason: Shortness Of Breath Amiodarone [Cordarone] 200 mg PO BID #12 tablet Amiodarone [Cordarone] 200 mg PO DAILY #30 tablet Rivaroxaban [Xarelto] 20 mg PO 1700 #30 tablet Home Medications: Atenolol [Tenormin] 50 mg PO DAILY 07/27/17 [History] Cyanocobalamin (B-12) [Vitamin B12] 1,000 mcg IM Q2W 07/27/17 [History] Diclofenac Sodium [Voltaren] 1 appl TP QID PRN 07/27/17 [History] Nitroglycerin [Nitrostat] 0.4 mg SL Q5M PRN 07/27/17 [History] Ondansetron HCl [Zofran] 4 - 8 mg PO TID PRN 07/27/17 [History] Potassium Chloride [K-Tab ER] 20 meq PO BID 07/27/17 [History] Pravastatin Sodium [Pravachol] 20 mg PO HS 07/27/17 [History] Trazodone HCl 100 mg PO HS 07/27/17 [History] Levothyroxine [Synthroid] 25 mcg PO 0630 08/21/17 [History] [place]-3 Fatty Acids [Fish Oil Concentrate] 2,000 mg PO BID 08/21/17 [History] Ipratropium/Albuterol Neb [Duoneb] 3 ml IH Q6HR PRN 7 Days #28 vial.neb [Rx] ALPRAZolam [Xanax 0.5 MG Tablet] 0.5 mg PO BID PRN 5 Days #10 09/20/17 [Rx] Albuterol Neb [Proventil Neb] 2.5 mg IH [id number] PRN inhsol 09/20/17 [Rx] Amiodarone [Cordarone] 200 mg PO BID #12 tablet 09/20/17 [Rx] Amiodarone [Cordarone] 200 mg PO DAILY #30 tablet 09/20/17 [Rx] HYDROcodone/Acet 5/325 mg [[place] 5-325 mg] 1 tab PO TID PRN 5 Days #7 09/20/17 [ Rx] Omeprazole [PriLOSEC] 40 mg PO DAILY@0730 capsule. 09/20/17 [Rx] Rivaroxaban [Xarelto] 20 mg PO 1700 #30 tablet 09/20/17 [Rx] Allergies/Adverse Reactions: 3 Allergy/AdvReac Type Severity Reaction Status Date / Time No Known Allergies Allergy Verified 09/10/17 19:44 Date of admission: 09/10/17 21:49 Primary care physician: Amaris Hamilton Consults: 09/10/17 23:02 Consult to Ladle Filler [CONS] Routine Reason for SW Consult: patient requests information on home health 09/11/17 18:49 Consult to Nutrition [CONS] Routine Comment: 60 lb wt loss in 6 mos. Consulting Provider: NUTRITION Reason for Dietary Consult: Other 09/12/17 09:43 Consult to Interventional Radiology [CONS] Routine Consulting Provider: Radiology Interventional Cols Reason for Consult: Bone marrow biopsy and aspiration-send for flow cytometry. Once INR <1.5--giving FFP. Call Completed: Yes 09/12/17 23:50 Consult to Cardiology [CONS] Routine Comment: Consulting Provider: Cardiology Cristal Reason for Consult: 67 yo female admitted w/chronic anemia requiring transfusion, pancytopenia, new onset of atrial flutter, SOB, and moderate pericardial effusion on CTA placed on amiodarone drip d/t tachycardia (HR 140s to 150s) and hypotension. Call Completed: No 09/13/17 13:04 Consult to Ladle Filler [CONS] Routine Reason for SW Consult: Set up home health with home PT/OT, and get home nebulizer machine. 09/14/17 09:23 Consult to Critical Care [CONS] Stat Consulting Provider: Pulm Crit Care & Sleep Cristal Reason for Consult: VENT MANAGEMENT Call Completed: Yes 09/17/17 15:44 Consult to Cardiology [CONS] Stat Comment: Consulting Provider: Cardiology [place] Reason for Consult: Tachycardia/Hypotension s/p Pericardiocentesis and currently on amiodarone drip. Time Notified: 08:00 Call Completed: Yes Discharging clinician: Ene Maldonado Anticipated date of discharge: 09/20/17 - Constitutional Vitals: Temp Pulse Resp BP Pulse Ox 98.4 F 106 20 109/89 97 09/20/17 04:30 09/20/17 06:37 09/20/17 06:37 09/20/17 06:37 09/20/17 06:37 General appearance: Present: A&O X 3, answers questions appropriately - Cardiovascular Cardiovascular exam: Present: RRR, +S1, +S2, tachycardia. Absent: diastolic murmur, gallop, rubs, systolic murmur - Patient Status Disposition: Transfer SNF Condition: Fair Functional capacity at discharge: uses cane/walker Overall status at discharge: patient is progressing back to baseline - Discharge Instructions Instructions: Amiodarone (By mouth), Rivaroxaban (By mouth) Follow Up With: Kathi Hernández CHAIN DYER [Advanced Practice Nurse] - (Patient is going to [facility]) Additional Instructions: F/up with Dr.VAN HOLLINGSWORTH/Rheumatology in 1 week F/up with /Hematology as scheduled - Diet and Activity Activity: as per physical therapy Diet: low fat, low cholesterol, low salt diet - VTE Reasons for not Prescribing Prophylaxis: Medical contraindication (Chronic Blood Loss Anemia, GI Bleed) Documentation of Mechanical Device: Intermittent pneumatic compression device
--- NOTE | 2017-09-20 10:26 | Physician Discharge Referral ---
ExtendedCare Referral Info Transfer To: [place] Provider in Charge: Ene Maldonado Provider in Charge after Transfer: PCP Institutional Level of Care: Skilled - Diagnosis (1) Atrial fibrillation Priority: Primary Status: Acute (2) Pancytopenia Priority: Primary Status: Chronic (3) Symptomatic anemia Priority: Primary Status: Acute (4) Hypothyroidism Priority: Secondary Status: Chronic (5) Hyponatremia Priority: Secondary Status: Chronic (6) Elevated INR Priority: Primary Status: Acute (7) Falls Priority: Primary Status: Chronic (8) Cardiac tamponade Priority: Primary Status: Acute Expected Duration of Placement: 3 weeks Prognosis: Fair Aware of Diagnosis: Patient, Family Aware of Prognosis: Patient, Family - Transfer Medications Prescriptions: Ipratropium/Albuterol Neb [Duoneb] 3 ml IH Q6HR PRN 7 Days #28 vial.neb PRN Reason: Shortness Of Breath Amiodarone [Cordarone] 200 mg PO BID #12 tablet Amiodarone [Cordarone] 200 mg PO DAILY #30 tablet Rivaroxaban [Xarelto] 20 mg PO 1700 #30 tablet Home Medications: Atenolol [Tenormin] 50 mg PO DAILY 07/27/17 [History] Cyanocobalamin (B-12) [Vitamin B12] 1,000 mcg IM Q2W 07/27/17 [History] Diclofenac Sodium [Voltaren] 1 appl TP QID PRN 07/27/17 [History] Nitroglycerin [Nitrostat] 0.4 mg SL Q5M PRN 07/27/17 [History] Ondansetron HCl [Zofran] 4 - 8 mg PO TID PRN 07/27/17 [History] Potassium Chloride [K-Tab ER] 20 meq PO BID 07/27/17 [History] Pravastatin Sodium [Pravachol] 20 mg PO HS 07/27/17 [History] Trazodone HCl 100 mg PO HS 07/27/17 [History] Levothyroxine [Synthroid] 25 mcg PO 0630 08/21/17 [History] [place]-3 Fatty Acids [Fish Oil Concentrate] 2,000 mg PO BID 08/21/17 [History] Ipratropium/Albuterol Neb [Duoneb] 3 ml IH Q6HR PRN 7 Days #28 vial.neb [Rx] ALPRAZolam [Xanax 0.5 MG Tablet] 0.5 mg PO BID PRN 5 Days #10 09/20/17 [Rx] Albuterol Neb [Proventil Neb] 2.5 mg IH [id number] PRN inhsol 09/20/17 [Rx] Amiodarone [Cordarone] 200 mg PO BID #12 tablet 09/20/17 [Rx] Amiodarone [Cordarone] 200 mg PO DAILY #30 tablet 09/20/17 [Rx] HYDROcodone/Acet 5/325 mg [[place] 5-325 mg] 1 tab PO TID PRN 5 Days #7 09/20/17 [ Rx] Omeprazole [PriLOSEC] 40 mg PO DAILY@0730 capsule. 09/20/17 [Rx] Rivaroxaban [Xarelto] 20 mg PO 1700 #30 tablet 09/20/17 [Rx] Allergies/Adverse Reactions: 3 Allergy/AdvReac Type Severity Reaction Status Date / Time No Known Allergies Allergy Verified 09/10/17 19:44 - Respiratory Orders Smoking Cessation: Smoking cessation has been advised. For more information, call the [place] Tobacco Quit Line at 7-211-SMEN-NOW. - Advance Directives Code Status: DNR-Arrest/Don't Intubate - Mobility Orders Ambulate - Rehabiliation Orders Rehab Potential: Fair Rehab Orders: ROM Exercises, Evaluation for Physical Therapy, Evaluation for Occupational Therapy - Treatments List/Other: CBC Q weekly - Diet Orders Cardiac CERTIFICATION: I certify that the transfer of the above named patient to an Extended Care Facility is necessary for the continuing treatment of the diagnosis listed. The above information is true and accurate reflection of patient's current condition. Confidential - Redisclosure prohibited without a patient's written consent.
[2017-09-20] MEDS: *HR* HYDROcodone/Acet 5/325 mg TABLET PO PRN (12:19)
[2017-09-20] MEDS ORDERED: *HR* Rivaroxaban 10 MG TABLET PO SCH (17:00)
== END 2017-09-20 14:21 | DRG 981 ==
LOC: 2ANU 16:22 → EMEROO 16:22 → 2ANU 20:27 → SUATTDRO 21:49 → 2NNU 09-13 01:14 → ICNU 09-13 22:54 → 2NNU 09-17 04:48
PROVIDERS: ADMIT General Practice; ATTEND Internal Medicine